=== PATIENT | male | born 1970 | race Caucasian/White ===

== ENCOUNTER 2016-12-10 23:24 | Emergency (ER) | payer OTHER ==
[~2016-12-10] VITALS: Ht 172.7 cm; Wt 153.2 kg
[~2016-12-10 23:24] MED LIST: GLC/500 PO
[2016-12-10 23:34] VITALS: TEMP 36.8; Ht 172.7 cm; Wt 153.2 kg
[2016-12-11 00:52] LABS: BASO % 0.4 %; BASO ABS # 0.05 K/uL (0-0.2); COMPLETE YES; EOS % 1.8 %; HEMATOCRIT 44.2 % (42-52); IG% 1.3 %; LYMPH % 20.6 %; LYMPH ABS # 2.43 K/uL (1.2-3.4); MEAN CELL VOLUME 94.6 fL (80-100); MEAN CORPUSCULAR HEMOGLOBIN 32.5 pg (25-34); MEAN CORPUSCULAR HGB CONC 34.4 g/dl (32-36); MEAN PLATELET VOLUME 11.5 fL (7.4-10.4); MONO % 7.1 %; NEUT % 68.8 %; PLATELET COUNT 231 K/uL (130-400); RED BLOOD COUNT 4.67 M/uL (4.7-6.1); WHITE BLOOD COUNT 11.81 K/uL (4.8-10.8)
[2016-12-11 01:17] LABS: BUN/CREATININE RATIO 15.5 (10-20); CALCIUM 9.3 mg/dl (8.5-10.1); CREATININE 0.99 mg/dl (0.60-1.40); MAGNESIUM 1.9 mg/dl (1.8-2.4)
--- NOTE | 2016-12-11 02:32 | EMERGENCY ROOM VISIT NOTE ---
History First contact with patient: 23:39 Chief Complaint: ARM PAIN Stated Complaint: PULL IN LEFT FOREARM,CLINCHING HAND History of Present Illness The patient is a 46 year old male who presents to the Emergency Room with complaints of left forearm hand pain and cramping for the past week that has been intermittent after raking leaves. Patient is left-hand dominant. Patient states his hand cramped up and had to manually extend his fingers. This is worse with activity. He is currently asymptomatic. Patient states he did overuse his arm last week raking leaves when symptoms started. Patient denies chest pain, dyspnea, numbness, tingling, elbow pain, swelling, fever, chills. No direct injury to the area. He does not drink alcohol. Review of Systems See HPI for pertinent positives & negatives. A total of 10 systems reviewed and were otherwise negative. Past Medical/Surgical History Medical Problems: (1) Cellulitis of left lower leg (2) Diabetes (3) Diverticulitis (4) Sleep apnea Surgical Problems: (1) S/P tonsillectomy Family History Diabetes mellitus FHx: cancer FHx: heart disease Hypertension Kidney disease Kidney stones Social History Smoking Status: Never Smoker Alcohol Use: none Drug Use: none Marital Status: Housing Status: lives with family Occupation Status: employed Current/Historical Medications Scheduled Metformin Hcl (Glucophage), 500 MG PO BID Allergies Coded Allergies: Tramadol (Verified Allergy, Unknown, urinary retention, 12/10/16) pt Physical Exam Vital Signs Date Time Temp Pulse Resp B/P Pulse Ox O2 Delivery O2 Flow Rate FiO2 12/11/16 01:22 101 18 117/99 97 Room Air 12/10/16 23:34 36.8 113 20 158/99 97 Room Air Physical Exam VITALS: Vitals are noted on the nurse's note and reviewed by myself. Vital signs stable. GENERAL: Pleasant male, in no acute distress, nondiaphoretic, well-developed well-nourished. SKIN: Capillary reflex less than 2 seconds. HEENT: Normocephalic. PERRLA. EOMI. Nares patent. Mucous membranes moist. Neck is supple without nuchal rigidity. HEART: Regular rate and rhythm without murmurs gallops or rubs. LUNGS: Clear to auscultation bilaterally without wheezes, rales or rhonchi. No retractions or accessory muscle use. ABDOMEN: Positive bowel sounds x 4. Normal tympanic percussion. Soft, nontender, without masses or organomegaly. Nogueira sign negative. No guarding or rebound tenderness. MUSCULOSKELETAL: No gross musculoskeletal defects. Left arm: Left elbow, forearm, wrist and hand and fingers nontender to palpation full range of motion. No erythema, edema noted. Radial pulses +2 equal present bilaterally. Full range of motion with 5 out of 5 strength to left arm. NEURO: Patient was alert and oriented to person place and time. Normal sensation to light and sharp touch. No focal neurological deficits. Medical Decision & Procedures Laboratory Results 12/11/16 00:39 Red Blood Count 4.67, Mean Corpuscular Volume 94.6, Mean Corpuscular Hemoglobin 32.5, Mean Corpuscular Hemoglobin Concent 34.4, Mean Platelet Volume 11.5, Neutrophils (%) (Auto) 68.8, Lymphocytes (%) (Auto) 20.6, Monocytes (%) (Auto) 7.1, Eosinophils (%) (Auto) 1.8, Basophils (%) (Auto) 0.4, Neutrophils # (Auto) 8.13, Lymphocytes # (Auto) 2.43, Monocytes # (Auto) 0.84, Eosinophils # (Auto) 0.21, Basophils # (Auto) 0.05 12/11/16 00:39 Test 12/11/16 00:39 White Blood Count 11.81 K/uL (4.8-10.8) Red Blood Count 4.67 M/uL (4.7-6.1) Hemoglobin 15.2 g/dL (14.0-18.0) Hematocrit 44.2 % (42-52) Mean Corpuscular Volume 94.6 fL (80-100) Mean Corpuscular Hemoglobin 32.5 pg (25-34) Mean Corpuscular Hemoglobin Concent 34.4 g/dl (32-36) Platelet Count 231 K/uL (130-400) Mean Platelet Volume 11.5 fL (7.4-10.4) Neutrophils (%) (Auto) 68.8 % Lymphocytes (%) (Auto) 20.6 % Monocytes (%) (Auto) 7.1 % Eosinophils (%) (Auto) 1.8 % Basophils (%) (Auto) 0.4 % Neutrophils # (Auto) 8.13 K/uL (1.4-6.5) Lymphocytes # (Auto) 2.43 K/uL (1.2-3.4) Monocytes # (Auto) 0.84 K/uL (0.11-0.59) Eosinophils # (Auto) 0.21 K/uL (0-0.5) Basophils # (Auto) 0.05 K/uL (0-0.2) RDW Standard Deviation 45.1 fL (36.4-46.3) RDW Coefficient of Variation 13.1 % (11.5-14.5) Immature Granulocyte % (Auto) 1.3 % Immature Granulocyte # (Auto) 0.15 K/uL (0.00-0.02) Anion Gap 8.0 mmol/L (3-11) Est Creatinine Clear Calc Drug Dose 137.8 ml/min Estimated GFR () 106.9 Estimated GFR (Non- 92.2 BUN/Creatinine Ratio 15.5 (10-20) Calcium Level 9.3 mg/dl (8.5-10.1) Magnesium Level 1.9 mg/dl (1.8-2.4) ED Course Prior records reviewed and summarized above. Triage Nursing notes reviewed. The patient's history was concerning for swelling and pain in the arm. Differential diagnosis: Etiologies such as DVT, musculoskeletal, infection, joint effusion, trauma, lymphedema, idiopathic, tendinitis, as well as others were entertained.. Physical examination: The physical examination revealed no signs of infection. Neurovascularly intact. ER treatment provided: Wrist splint On reassessment the patient felt better. Diagnostics interpreted by me: The labs revealed hyperglycemia without DKA Imaging studies: Negative for DVT This appears to be consistent with tendinitis from overuse. Patient was advised to wear the splint for comfort and advise overusing the hand. He is advised follow-up with hand specialist in a few days or here in the ER sooner for severe pain, numbness, tingling, worsening signs or symptoms or as needed. Patient was neurovascularly and neurologically intact. He is well-appearing.. By the evaluation outlined above emergent etiologies such as DVT, septic joint, trauma, infection, CHF, as well as others were deemed relatively unlikely. The pt informed about the findings as listed above. All questions were answered and pleased with the treatment. Return instructions were outlined and the patient was discharged in stable condition. Referral: The patient was referred back to hand specialist for follow-up in 2 to 3 days for a recheck of the current condition. Medical Decision as above Impression Primary Impression: Left forearm pain Additional Impression: Tendonitis Departure Information Dispostion Home / Self-Care Condition GOOD Referrals Marcial Peter M.D. (PCP) Patient Instructions My [facility] [employer] Additional Instructions Ibuprofen(Motrin, Advil) may be used for fever or pain. Use 600mg every six hours as needed. Take with food. Avoid using more than 2400mg in a 24 hour period. Do not use 2400mg per day for more than three consecutive days without physician direction. Prolonged inappropriate use can lead to stomach upset or ulcers. This medication can be taken if you need to drive, work, or perform activities which may be dangerous when taking narcotic pain medication. (AND/OR) Acetaminophen(Tylenol) may be used for fever or pain. Use 1000mg every six hours as needed. Avoid using more than 3000mg in a 24 hour period. This medication can be taken if you need to drive, work, or perform activities which may be dangerous when taking narcotic pain medication. Wear splint for comfort. Avoid overuse of your left arm. Continue current medications. Return to the ER immediately for any numbness, tingling, severe pain, extreme swelling in the extremity or as needed. Call Orthopedics tomorrow to arrange follow up for your injury. Problem Qualifiers
[2016-12-11 02:45] VITALS: BP 123/98; PULSE 101; O2SAT 96
--- NOTE | 2016-12-11 06:41 | DIAGNOSTIC IMAGING REPORT ---
VENOUS DOPPLER LEFT ARM UPPER EXTREMITY VENOUS DOPPLER HISTORY: Pain left arm pain COMPARISON STUDY: None. FINDINGS: The internal jugular vein is patent. There is normal flow within the subclavian vein. There is normal flow and compressibility within the left axillary, basilic, brachial, radial, ulnar, and visualized cephalic veins. IMPRESSION: No DVT within the upper extremity. Electronically signed by: Terrell De Leon M.D. 12/11/2016 6:40 AM Dictated Date/Time: 12/11/2016 6:39 AM
== END 2016-12-11 02:45 | disposition home or self-care (01) ==
LOC: C.EDB 23:25 → C.EDC 12-11 02:45
DX: M79.632 Pain in left forearm (principal); M77.9 Enthesopathy, unspecified; E11.9 Type 2 diabetes mellitus without complications; Z90.89 Acquired absence of other organs; Z83.3 Family history of diabetes mellitus; Z82.49 Family history of ischemic heart disease and other diseases of the circulatory system; Z84.1 Family history of disorders of kidney and ureter; Z79.84 Long term (current) use of oral hypoglycemic drugs

== ENCOUNTER 2017-01-14 19:26 | Emergency (ER) | payer OTHER ==
[~2017-01-14] VITALS: Ht 172.7 cm; Wt 158.3 kg
[2017-01-14 19:32] VITALS: TEMP 36.9; Ht 172.7 cm; Wt 158.3 kg
[2017-01-14] MEDS ORDERED: SODIUM CHLORIDE 0.9% 1000ML 1,000 ML IV STA (19:48)
[2017-01-14 20:17] LABS: BASO % 0.3 %; BASO ABS # 0.03 K/uL (0-0.2); COMPLETE YES; HEMATOCRIT 41.9 % (42-52); IG% 1.7 %; LYMPH % 23.4 %; LYMPH ABS # 2.03 K/uL (1.2-3.4); MEAN CELL VOLUME 94.2 fL (80-100); MEAN CORPUSCULAR HEMOGLOBIN 32.8 pg (25-34); MEAN CORPUSCULAR HGB CONC 34.8 g/dl (32-36); MEAN PLATELET VOLUME 11.8 fL (7.4-10.4); NEUT % 65.6 %; PLATELET COUNT 171 K/uL (130-400); RED BLOOD COUNT 4.45 M/uL (4.7-6.1); WHITE BLOOD COUNT 8.68 K/uL (4.8-10.8)
--- NOTE | 2017-01-14 20:31 | EMERGENCY ROOM VISIT NOTE ---
History Report prepared by Joaquín: Fuentes Fernando Under the Supervision of: Dr. Scott Lozoya M.D. First contact with patient: 19:40 Chief Complaint: HYPERGLYCEMIA Stated Complaint: SUGAR IS 390, BP IS ALSO UP History of Present Illness The patient is a 46 year old male who presents to the Emergency Room with constant hyperglycemia beginning prior to arrival. The patient states that he was at work and was getting ready to run the yard. He reports that he put the gate down after the two guards came in and did not wait for the prisoners to enter the yard. The patient note that he felt confused and overheated, and his co-workers said he was acting weird. 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 The patient reports the he was constantly drinking water , but his month would remain dry. He notes that for lunch he had pizza and water. The patient states that he was sent to the medic for evaluations. He reports that upon evaluation, his blood sugar was 390, and his blood pressure was hypertensive. The patient notes that he has a history of Type II diabetes mellitus, and he has been doing well. He states that he does not regularly check his blood sugar; he only checks it when it feels like he has symptoms. The patient denies numbness, weakness, chest pain, and shortness of breath. Nursing notes states that in the room, the patients blood pressure was 154/99. The patient's records show that his last A1C was in April and was 8.1. Source of History: patient, nursing staff, other (patient's records) Onset: prior to arrival Position: other (global) Quality: other (hyperglycemia) Timing: constant Associated Symptoms: No chest pain, No SOB, No weakness, No numbness Note: Associated symptoms: confusion and overheated Review of Systems See HPI for pertinent positives & negatives. A total of 10 systems reviewed and were otherwise negative. Past Medical & Surgical Medical Problems: (1) Cellulitis of left lower leg (2) Diabetes (3) Diverticulitis (4) Sleep apnea Surgical Problems: (1) S/P tonsillectomy Old medical records were reviewed. Nurse's notes were reviewed and I agree with. Family History Diabetes mellitus FHx: cancer FHx: heart disease Hypertension Kidney disease Kidney stones Social History Smoking Status: Never Smoker Alcohol Use: none Drug Use: none Marital Status: Housing Status: lives with family Occupation Status: employed Current/Historical Medications Scheduled Metformin Hcl (Glucophage), 500 MG PO BID Allergies Coded Allergies: Tramadol (Verified Allergy, Unknown, urinary retention, 01/14/17) pt Physical Exam Vital Signs Date Time Temp Pulse Resp B/P (MAP) Pulse Ox O2 Delivery O2 Flow Rate FiO2 01/14/17 21:48 87 20 139/89 97 01/14/17 20:53 101 20 140/99 96 Room Air 01/14/17 19:32 36.9 110 20 173/105 97 Room Air Physical Exam General: Middle-aged male, non-ill appearing, no acute distress, breathing comfortably on room air. Normal speech HEENT: Normal cephalic atraumatic. Pupils are equal round and reactive to light. Extraocular movements are intact. Oropharynx is pink with moist mucous membranes. No swelling of the mouth lips or tongue. Neck: Supple with a midline trachea. No meningeal signs or stiffness, no JVD or bruits. No Stridor. Chest: Clear to auscultation bilaterally. No wheezes or rhonchi. No increased work of breathing. Heart: regular rate and rhythm. Abdomen: Soft nontender, nondistended without rebound guarding or rigidity. Extremities: No cyanosis clubbing or edema. No calf tenderness or assymetry Spine/Back. Non tender to palpation. No CVA tenderness Skin: Good turgor without rashes. Neurologic exam: Cranial nerves two through 12 are intact. Motor and sensation are intact and symmetrical throughout. Medical Decision & Procedures Laboratory Results 01/14/17 20:00 Red Blood Count 4.45, Mean Corpuscular Volume 94.2, Mean Corpuscular Hemoglobin 32.8, Mean Corpuscular Hemoglobin Concent 34.8, Mean Platelet Volume 11.8, Neutrophils (%) (Auto) 65.6, Lymphocytes (%) (Auto) 23.4, Monocytes (%) (Auto) 7.0, Eosinophils (%) (Auto) 2.0, Basophils (%) (Auto) 0.3, Neutrophils # (Auto) 5.69, Lymphocytes # (Auto) 2.03, Monocytes # (Auto) 0.61, Eosinophils # (Auto) 0.17, Basophils # (Auto) 0.03 01/14/17 20:00 Test 01/14/17 20:00 01/14/17 20:10 White Blood Count 8.68 K/uL (4.8-10.8) Red Blood Count 4.45 M/uL (4.7-6.1) Hemoglobin 14.6 g/dL (14.0-18.0) Hematocrit 41.9 % (42-52) Mean Corpuscular Volume 94.2 fL (80-100) Mean Corpuscular Hemoglobin 32.8 pg (25-34) Mean Corpuscular Hemoglobin Concent 34.8 g/dl (32-36) Platelet Count 171 K/uL (130-400) Mean Platelet Volume 11.8 fL (7.4-10.4) Neutrophils (%) (Auto) 65.6 % Lymphocytes (%) (Auto) 23.4 % Monocytes (%) (Auto) 7.0 % Eosinophils (%) (Auto) 2.0 % Basophils (%) (Auto) 0.3 % Neutrophils # (Auto) 5.69 K/uL (1.4-6.5) Lymphocytes # (Auto) 2.03 K/uL (1.2-3.4) Monocytes # (Auto) 0.61 K/uL (0.11-0.59) Eosinophils # (Auto) 0.17 K/uL (0-0.5) Basophils # (Auto) 0.03 K/uL (0-0.2) RDW Standard Deviation 43.9 fL (36.4-46.3) RDW Coefficient of Variation 12.8 % (11.5-14.5) Immature Granulocyte % (Auto) 1.7 % Immature Granulocyte # (Auto) 0.15 K/uL (0.00-0.02) Anion Gap 8.0 mmol/L (3-11) Est Creatinine Clear Calc Drug Dose 144.9 ml/min Estimated GFR () 111.0 Estimated GFR (Non- 95.7 BUN/Creatinine Ratio 14.0 (10-20) Bedside Glucose 323 mg/dl (70-99) Calcium Level 8.6 mg/dl (8.5-10.1) Total Bilirubin 0.4 mg/dl (0.2-1) Direct Bilirubin < 0.1 mg/dl (0-0.2) Aspartate Amino Transf (AST/SGOT) 15 U/L (15-37) Alanine Aminotransferase (ALT/SGPT) 34 U/L (12-78) Alkaline Phosphatase 47 U/L (45-117) Total Protein 7.4 gm/dl (6.4-8.2) Albumin 3.6 gm/dl (3.4-5.0) Lipase 232 U/L (73-393) Beta-Hydroxybutyric Acid 0.90 mg/dL (0.2-2.81) Bedside Troponin I < 0.030 ng/ml (0-0.045) Laboratory studies as stated above per my review. Medications Administered Medications (Trade) Dose Ordered Sig/Kaelyn Route Start Time Stop Time Status Last Admin Dose Admin Sodium Chloride 1,000 ml @ 999 mls/hr Q1H1M STAT IV 01/14/17 19:48 01/14/17 20:48 DC 01/14/17 20:12 999 MLS/HR ECG Indication: weakness Rate (beats per minute): 102 Rhythm: sinus tachycardia Findings: no acute ischemic change, no ectopy Comparison ECG Date: 10/12/15 Change: no significant change ED Course 1941: Past medical records reviewed. The patient was evaluated in room C03, and a complete history and physical examination were performed. 1947: Ordered Sodium Chloride 1000 ml @ 999 mls/hr IV 2112: I reevaluated the patient, and he was resting. 2125: Upon reevaluation, the patient is resting comfortably. I discussed the results and treatment plan with him. He verbalized agreement of the treatment plan. The patient was discharged home. Medical Decision Differential diagnosis includes: hyperglycemia, diabetic ketoacidosis, cardiac disease, hypertension, electrolyte metabolic abnormality, infection Medication Reconciliation: I attest that I have personally reviewed the patient' s current medication list. Blood pressure Screening: Patient was found to have an elevated blood pressure and was referred to their primary doctor for recheck and further treatment. This patient comes in as described above. He was placed room C3. He is here for treatment and evaluation of hyperglycemia. He said he felt a little off today and his blood sugar was in the 300s. He did have 2 pieces of pizza for lunchonary he is on metformin for type 2 diabetes. His blood pressure was elevated however it's come down he does have a history of high blood pressure and still mildly elevated here and I did suggest that he follow-up with his regular doctor for recheck. His symptoms do not appear to be related to hypertensive emergency/urgency. EKG does not suggest acute cord syndrome or arrhythmia. Multiple blood tests was obtained. He was found to be mildly hyperglycemic. He was hydrated with IV fluids. He has no evidence suggest DKA and is feeling better and would like to go home. I recommended that he check his blood sugar frequently and return if :worsening of symptoms, fever or chills , any new problems or concerns. He should follow up with doctor this week for recheck. If his blood sugar persistently is elevated, he may ultimately need to increase his medications under his doctor's direction. He was happy with plan and discharged to home. Impression Primary Impression: Hyperglycemia Scribe Attestation The scribe's documentation has been prepared under my direction and personally reviewed by me in its entirety. I confirm that the note above accurately reflects all work, treatment, procedures, and medical decision making performed by me. Departure Information Dispostion Home / Self-Care Referrals Marcial Peter M.D. (PCP) Forms HOME CARE DOCUMENTATION FORM, IMPORTANT VISIT INFORMATION, WORK / SCHOOL INSTRUCTIONS Patient Instructions My [facility] Additional Instructions REst Drink plenty of fluids Check your blood sugar frequently. Try to minimize your carbohydrate intake. Follow-up with your doctor this week for blood sugar and blood pressure recheck. You may ultimately need to readjust her medications if it's persistently high. Return to the ER if: Worsening of symptoms, not tolerating fluids, fever or chills, shortness of breath, any new problems or concerns.
[2017-01-14 20:33] LABS: ALT/SGPT 34 U/L (12-78); AST/SGOT 15 U/L (15-37); BLOOD UREA NITROGEN 13 mg/dl (7-18); CALCIUM 8.6 mg/dl (8.5-10.1); CARBON DIOXIDE 28 mmol/L (21-32); CHLORIDE 102 mmol/L (98-107); CREATININE 0.96 mg/dl (0.60-1.40); GLUCOSE 327 mg/dl (70-99); POTASSIUM 3.9 mmol/L (3.5-5.1); SODIUM 138 mmol/L (136-145)
[2017-01-14 20:43] LABS: ALKALINE PHOSPHATASE 47 U/L (45-117)
[2017-01-14 21:48] VITALS: BP 139/89; PULSE 87; O2SAT 97
== END 2017-01-14 21:49 | disposition home or self-care (01) ==
LOC: C.EDB 19:26 → C.EDC 21:49
DX: E11.65 Type 2 diabetes mellitus with hyperglycemia (principal); R03.0 Elevated blood-pressure reading, without diagnosis of hypertension; G47.30 Sleep apnea, unspecified; K57.92 Diverticulitis of intestine, part unspecified, without perforation or abscess without bleeding; Z83.3 Family history of diabetes mellitus; Z80.9 Family history of malignant neoplasm, unspecified; Z82.49 Family history of ischemic heart disease and other diseases of the circulatory system; Z84.1 Family history of disorders of kidney and ureter; Z79.899 Other long term (current) drug therapy

== ENCOUNTER 2017-03-14 11:12 | Emergency (ER) | payer OTHER ==
[~2017-03-14] VITALS: Ht 172.7 cm; Wt 155.5 kg
[2017-03-14 11:17] VITALS: TEMP 36.8
[2017-03-14] MEDS ORDERED: SODIUM CHLORIDE 0.9% 1000ML 1,000 ML IV STA (11:27)
[2017-03-14 11:35] VITALS: Ht 172.7 cm; Wt 155.5 kg
--- NOTE | 2017-03-14 11:54 | EMERGENCY ROOM VISIT NOTE ---
History Report prepared by Joaquín: Sarah Lee Under the Supervision of: Dr. Grover Alvarez M.D. First contact with patient: 11:27 Chief Complaint: HYPERGLYCEMIA Stated Complaint: SUGAR IS HIGH/BLOOD PRESSURE Nursing Triage Summary: Pt c/o high blood sugar and elvated BP since this am. BSG was 431, BP 150/102. Pt states he is "loopy" and could not focus. 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 Hx of Type 2 diabetes. BSG 365 in Triage History of Present Illness The patient is a 47 year old male who presents to the Emergency Room with complaints of sudden hyperglycemia beginning this morning. He reports that he occasionally has episodes of hyperglycemia. The patient reports that he takes 550 mg of Metformin for his diabetes and that he did not miss a dose today. He states that he was unable to focus today and states that the last time he ate was 4 hours ago. The patient denies other symptoms. Source of History: patient Onset: this morning Position: other (global) Quality: other (hyperglycemia) Timing: other (sudden) Note: additional symptom: unable to focus Review of Systems See HPI for pertinent positives & negatives. A total of 10 systems reviewed and were otherwise negative. Past Medical & Surgical Medical Problems: (1) Cellulitis of left lower leg (2) Diabetes (3) Diverticulitis (4) Sleep apnea Surgical Problems: (1) S/P tonsillectomy Family History Diabetes mellitus FHx: cancer FHx: heart disease Hypertension Kidney disease Kidney stones Social History Smoking Status: Never Smoker Alcohol Use: none Drug Use: none Marital Status: Housing Status: lives with family Occupation Status: employed Current/Historical Medications Scheduled Metformin Hcl (Glucophage), 550 MG PO AMPM Sitagliptin (Januvia), 100 MG PO DAILY Allergies Coded Allergies: Tramadol (Verified Allergy, Unknown, urinary retention, 01/14/17) pt Physical Exam Vital Signs Date Time Temp Pulse Resp B/P (MAP) Pulse Ox O2 Delivery O2 Flow Rate FiO2 03/14/17 14:11 82 16 132/72 98 Room Air 03/14/17 12:15 85 16 134/86 98 Room Air 03/14/17 12:04 98 Room Air 03/14/17 12:04 98 Room Air 03/14/17 11:45 101 154/96 98 Room Air 104 153/99 112 134/102 03/14/17 11:17 36.8 110 18 168/89 95 Room Air Physical Exam GENERAL: Patient is a healthy-appearing well-nourished male HEAD: Normocephalic atraumatic EYES: Ocular movements intact pupils equal and react to light OROPHARYNX mucous membranes are moist no exudates present no erythema or edema present NECK: Supple no nuchal rigidity CHEST: Good equal expansion LUNGS: Clear and equal to auscultation CARDIAC: Normal S1 and S2 ABDOMEN: Soft nontender no guarding BACK: No CVA tenderness EXTREMITIES: No pain upon palpation normal muscle strength in all groups no clubbing cyanosis or edema NEURO: Patient is following commands and answering questions appropriately. Alert and oriented x3 Cranial Nerves 2-12 grossly intact Medical Decision & Procedures Laboratory Results 03/14/17 11:51 Red Blood Count 4.48, Mean Corpuscular Volume 94.9, Mean Corpuscular Hemoglobin 32.4, Mean Corpuscular Hemoglobin Concent 34.1, Mean Platelet Volume 12.2, Neutrophils (%) (Auto) 64.8, Lymphocytes (%) (Auto) 23.8, Monocytes (%) (Auto) 7.2, Eosinophils (%) (Auto) 2.5, Basophils (%) (Auto) 0.4, Neutrophils # (Auto) 5.56, Lymphocytes # (Auto) 2.04, Monocytes # (Auto) 0.62, Eosinophils # (Auto) 0.21, Basophils # (Auto) 0.03 03/14/17 11:51 Test 03/14/17 00:00 03/14/17 11:51 03/14/17 12:00 03/14/17 14:24 Urine Color YELLOW Urine Appearance CLEAR (CLEAR) Urine pH 5.0 (4.5-7.5) Urine Specific [place] 1.032 (1.000-1.030) Urine Protein NEG (NEG) Urine Glucose (UA) 3+ (NEG) Urine Ketones NEG (NEG) Urine Occult Blood NEG (NEG) Urine Nitrite NEG (NEG) Urine Bilirubin NEG (NEG) Urine Urobilinogen NEG (NEG) Urine Leukocyte Esterase NEG (NEG) White Blood Count 8.57 K/uL (4.8-10.8) Red Blood Count 4.48 M/uL (4.7-6.1) Hemoglobin 14.5 g/dL (14.0-18.0) Hematocrit 42.5 % (42-52) Mean Corpuscular Volume 94.9 fL (80-100) Mean Corpuscular Hemoglobin 32.4 pg (25-34) Mean Corpuscular Hemoglobin Concent 34.1 g/dl (32-36) Platelet Count 197 K/uL (130-400) Mean Platelet Volume 12.2 fL (7.4-10.4) Neutrophils (%) (Auto) 64.8 % Lymphocytes (%) (Auto) 23.8 % Monocytes (%) (Auto) 7.2 % Eosinophils (%) (Auto) 2.5 % Basophils (%) (Auto) 0.4 % Neutrophils # (Auto) 5.56 K/uL (1.4-6.5) Lymphocytes # (Auto) 2.04 K/uL (1.2-3.4) Monocytes # (Auto) 0.62 K/uL (0.11-0.59) Eosinophils # (Auto) 0.21 K/uL (0-0.5) Basophils # (Auto) 0.03 K/uL (0-0.2) RDW Standard Deviation 43.3 fL (36.4-46.3) RDW Coefficient of Variation 12.6 % (11.5-14.5) Immature Granulocyte % (Auto) 1.3 % Immature Granulocyte # (Auto) 0.11 K/uL (0.00-0.02) Est Creatinine Clear Calc Drug Dose 144.9 ml/min Estimated GFR () 113.0 Estimated GFR (Non- 97.5 BUN/Creatinine Ratio 19.6 (10-20) Estimated Average Glucose 252 mg/dl Hemoglobin A1c 10.4 % (4.5-5.6) Calcium Level 9.1 mg/dl (8.5-10.1) Total Bilirubin 0.3 mg/dl (0.2-1) Direct Bilirubin mg/dl (0-0.2) Aspartate Amino Transf (AST/SGOT) 24 U/L (15-37) Alanine Aminotransferase (ALT/SGPT) 46 U/L (12-78) Alkaline Phosphatase 48 U/L (45-117) Total Creatine Kinase 100 U/L (39-308) Creatine Kinase MB 1.3 ng/ml (0.5-3.6) Creatine Kinase MB Ratio 1.3 (0-3.0) Troponin I < 0.015 ng/ml (0-0.045) Total Protein 7.5 gm/dl (6.4-8.2) Albumin 3.6 gm/dl (3.4-5.0) Beta-Hydroxybutyric Acid 1.19 mg/dL (0.2-2.81) Thyroid Stimulating Hormone (TSH) 2.470 uIu/ml (0.300-4.500) Bedside Hemoglobin 15.0 g/dl (14.0-18.0) Bedside Hematocrit 44 % (42-52) Bedside Sodium 135 mEq/L (135-144) Bedside Potassium 4.4 mEq/L (3.3-5.0) Bedside Chloride 98 mEq/L (101-112) Bedside Total CO2 26 mEq/l (24-31) Anion Gap 17.0 mmol/L (16-25) Bedside Blood Urea Nitrogen 19 mg/dl (7-18) Bedside Creatinine 0.7 mg/dl (0.6-1.3) Bedside Glucose (other) 393 mg/dl (70-99) Bedside Ionized Calcium ([place]) 1.18 mmol/l (1.12-1.32) Bedside Glucose 285 mg/dl (70-99) Labs reviewed by ED physician. Medications Administered Medications (Trade) Dose Ordered Sig/Kaelyn Route Start Time Stop Time Status Last Admin Dose Admin Sodium Chloride 1,000 ml @ 999 mls/hr Q1H1M STAT IV 03/14/17 11:27 03/14/17 12:27 DC 03/14/17 11:50 999 MLS/HR Sitagliptin Phosphate (Januvia Tab) 100 mg DAILY STAT PO 03/14/17 13:44 03/14/17 13:45 DC 03/14/17 14:06 100 MG ECG Indication: weakness, other Rate (beats per minute): 93 Rhythm: normal sinus Findings: no acute ischemic change, no ectopy ED Course 1120: Past medical records reviewed. The patient was evaluated in room C7. A complete history and physical examination was performed. 1127: Ordered Sodium Chloride 1,000 ml @ 999 mls/hr IV. 1344: Ordered Januvia Tab 100 mg PO. 1420:: Upon reexamination the patient is resting. I discussed results and treatment plan with the patient. He verbalizes agreement and understanding. The patient is ready for discharge. Medical Decision Differential diagnosis: Etiologies such as metabolic, infection, hypo/hyperglycemia, electrolyte abnormalities, cardiac sources, intracerebral event, toxicologic, neurologic, as well as others were entertained. This is a 47-year-old male who presents emergency department complaining of elevated blood sugar. This the second time in 1 month that the patient has been here for his elevation in his blood sugar. I suspect it is poorly controlled. I did discuss his hyperglycemia with the pharmacist who recommended that the patient be placed on Januvia in addition to his metformin. The patient was given normal saline bolus and he felt much better in the emergency department. Patient was in agreement with the treatment plan. Medication Reconcilliation Current Medication List: was personally reviewed by me Blood Pressure Screening Patient's blood pressure: Elevated blood pressure Blood pressure disposition: Referred to PCP Impression Primary Impression: Hyperglycemia Additional Impression: Hypertension Scribe Attestation The scribe's documentation has been prepared under my direction and personally reviewed by me in its entirety. I confirm that the note above accurately reflects all work, treatment, procedures, and medical decision making performed by me. Departure Information Dispostion Home / Self-Care Prescriptions Sitagliptin (Januvia) 100 Mg Tab 100 MG PO DAILY for 30 Days, #30 TAB Prov: Grover Alvarez MD 03/14/17 Referrals Marcial Peter M.D. (PCP) Forms HOME CARE DOCUMENTATION FORM, IMPORTANT VISIT INFORMATION, WORK / SCHOOL INSTRUCTIONS Patient Instructions Hyperglycemia, My [facility], Sitagliptin oral tablet Additional Instructions Need follow up with Dr Peter You were found to have an elevated blood pressure today (>120 sytolic or >90 diastolic). Per medicare guidelines, you need to follow up with this blood pressure screening with your Primary Care Physician (PCP). For a new PCP call [phone]. You have been examined and treated today on an emergency basis only. This is not a substitute for, or an effort to provide, complete comprehensive medical care. It is impossible to recognize and treat all injuries or illnesses in a single emergency department visit. It is therefore important that you follow up closely with Dr Peter. Call as soon as possible for an appointment. Thank you for your time and consideration. I look forward to speaking with you again soon. Please don't hesitate to call us if you have any questions. Problem Qualifiers Additional Impression: Hypertension Hypertension type: unspecified Qualified Codes: I10 - Essential (primary) hypertension
[2017-03-14 12:04] VITALS: O2SAT 98
[2017-03-14 12:11] LABS: ISTAT CREATININE 0.7 mg/dl (0.6-1.3); ISTAT IONIZED CALCIUM 1.18 mmol/l (1.12-1.32)
[2017-03-14 12:14] LABS: BASO % 0.4 %; BASO ABS # 0.03 K/uL (0-0.2); COMPLETE YES; EOS % 2.5 %; HEMATOCRIT 42.5 % (42-52); IG% 1.3 %; LYMPH % 23.8 %; LYMPH ABS # 2.04 K/uL (1.2-3.4); MEAN CELL VOLUME 94.9 fL (80-100); MEAN CORPUSCULAR HEMOGLOBIN 32.4 pg (25-34); MEAN CORPUSCULAR HGB CONC 34.1 g/dl (32-36); MEAN PLATELET VOLUME 12.2 fL (7.4-10.4); MONO % 7.2 %; NEUT % 64.8 %; PLATELET COUNT 197 K/uL (130-400); RED BLOOD COUNT 4.48 M/uL (4.7-6.1); WHITE BLOOD COUNT 8.57 K/uL (4.8-10.8)
[2017-03-14 12:16] LABS: URINE APPEARANCE CLEAR (CLEAR); URINE BILIRUBIN NEG (NEG); URINE COLOR YELLOW; URINE NITRITE NEG (NEG); URINE SPECIFIC GRAVITY 1.032 (1.000-1.030); UROBILINOGEN NEG (NEG)
[2017-03-14 12:22] LABS: MANUAL MICROSCOPIC REQUIRED? NO; REVIEW REQ? NO
[2017-03-14 12:39] LABS: BLOOD UREA NITROGEN 18 mg/dl (7-18); CREATININE 0.94 mg/dl (0.60-1.40); GLUCOSE 378 mg/dl (70-99)
[2017-03-14 12:40] LABS: ALT/SGPT 46 U/L (12-78); AST/SGOT 24 U/L (15-37); BUN/CREATININE RATIO 19.6 (10-20); CALCIUM 9.1 mg/dl (8.5-10.1); CARBON DIOXIDE 26 mmol/L (21-32); CHLORIDE 100 mmol/L (98-107); POTASSIUM 4.3 mmol/L (3.5-5.1); SODIUM 133 mmol/L (136-145)
[2017-03-14 12:53] LABS: ALKALINE PHOSPHATASE 48 U/L (45-117); BETA-HYDROXYBUTYRATE 1.19 mg/dL (0.2-2.81); CKMB/CK RATIO 1.3 (0-3.0)
[2017-03-14] MEDS ORDERED: SITAGLIPTIN 100 MG TAB PO STA (13:44)
[2017-03-14] MEDS ORDERED: SITA1TAB27 PO ×2 (13:45→13:51)
[2017-03-14 14:11] VITALS: BP 132/72; PULSE 82; O2SAT 98
[2017-03-14 14:17] LABS: ESTIMATED AVERAGE GLUCOSE 252 mg/dl; HA1C FLAG Normal (Normal)
== END 2017-03-14 14:39 | disposition home or self-care (01) ==
LOC: C.EDB 11:13 → C.EDC 14:39
DX: E11.65 Type 2 diabetes mellitus with hyperglycemia (principal); I10 Essential (primary) hypertension; G47.30 Sleep apnea, unspecified; K57.92 Diverticulitis of intestine, part unspecified, without perforation or abscess without bleeding; Z83.3 Family history of diabetes mellitus; Z80.9 Family history of malignant neoplasm, unspecified; Z82.49 Family history of ischemic heart disease and other diseases of the circulatory system; Z84.1 Family history of disorders of kidney and ureter; Z79.899 Other long term (current) drug therapy

== ENCOUNTER → 2017-04-19 | Outpatient (CLI) | payer OTHER ==
[~2017-04-19] MED LIST changes: +FLUC150T PO; +SITA1TAB27 PO
[2017-04-19 16:39] LABS: ALT/SGPT 35 U/L (12-78); AST/SGOT 18 U/L (15-37); BLOOD UREA NITROGEN 12 mg/dl (7-18); BUN/CREATININE RATIO 13.6 (10-20); CALCIUM 8.9 mg/dl (8.5-10.1); CARBON DIOXIDE 29 mmol/L (21-32); CHLORIDE 102 mmol/L (98-107); CREATININE 0.87 mg/dl (0.60-1.40); GLUCOSE 281 mg/dl (70-99); POTASSIUM 4.5 mmol/L (3.5-5.1); SODIUM 136 mmol/L (136-145)
[2017-04-19 16:42] LABS: ALB/GLOB RATIO 0.9 (0.9-2); ALKALINE PHOSPHATASE 48 U/L (45-117); CHOLESTEROL 158 mg/dl (0-200); CHOLESTEROL/HDL RATIO 6.9; HDL CHOLESTEROL 23 mg/dl; TRIGLYCERIDES 421 mg/dl (0-150)
[2017-04-20 05:48] LABS: ESTIMATED AVERAGE GLUCOSE 258 mg/dl; HA1C FLAG Normal (Normal)
== END | disposition home or self-care (01) ==
LOC: C.LABBFT 11:45
PROVIDERS: ATTEND Physician Assistant Medical
DX: E11.65 Type 2 diabetes mellitus with hyperglycemia (principal)

== ENCOUNTER 2017-04-20 17:16 | Emergency (ER) | payer OTHER ==
[~2017-04-20] VITALS: Ht 172.7 cm; Wt 158.0 kg
[~2017-04-20 17:16] MED LIST changes: -FLUC150T PO
[2017-04-20 17:18] VITALS: TEMP 37.1; Ht 172.7 cm; Wt 158.0 kg
[2017-04-20] MEDS ORDERED: SODIUM CHLORIDE 0.9% 1000ML 1,000 ML IV STA ×2 (17:22→19:04)
--- NOTE | 2017-04-20 17:41 | EMERGENCY ROOM VISIT NOTE ---
History Report prepared by Joaquín: Jazmín Manjarrez Under the Supervision of: Dr. Jesse Mendez D.O. First contact with patient: 17:21 Chief Complaint: HYPERGLYCEMIA Stated Complaint: HIGH SUGAR History of Present Illness The patient is a 47 year old male who presents to the Emergency Room with complaints of persistent hyperglycemia. He states he was at work when he started "spacing out", so he went to the medical clinic at his work and his BSG was over 500. He admits to recent urinary frequency, dry mouth and dizziness. He is a type 2 diabetic and takes daily metformin. The patient also complains of rashes on his right sided back and under his right arm. He notes he has experienced diarrhea recently. 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 A total of 10 systems reviewed and were otherwise negative. Past Medical & Surgical Medical Problems: (1) Cellulitis of left lower leg (2) Diabetes (3) Diverticulitis (4) Sleep apnea Surgical Problems: (1) S/P tonsillectomy Family History Diabetes mellitus FHx: cancer FHx: heart disease Hypertension Kidney disease Kidney stones Social History Smoking Status: Never Smoker Alcohol Use: none Drug Use: none Marital Status: Housing Status: lives with family Occupation Status: employed Current/Historical Medications Scheduled Fluconazole (Diflucan), 150 MG PO Q3Days Metformin Hcl (Glucophage), 500 MG PO AMPM Sitagliptin (Januvia), 100 MG PO DAILY Allergies Coded Allergies: Tramadol (Verified Allergy, Unknown, urinary retention, 04/20/17) pt Physical Exam Vital Signs Date Time Temp Pulse Resp B/P (MAP) Pulse Ox O2 Delivery O2 Flow Rate FiO2 04/20/17 20:40 100 26 150/91 97 Room Air 04/20/17 19:19 103 25 129/92 96 Room Air 04/20/17 19:13 106 04/20/17 17:18 37.1 118 18 153/95 95 Room Air Physical Exam GENERAL: Patient is awake, alert and non-anxious appearing. EYES: The conjunctivae are clear. The pupils are round and reactive. EARS, NOSE, MOUTH AND THROAT: The nose is without any evidence of any deformity. Mucous membranes are dry, tongue is midline NECK: The neck is nontender and supple. RESPIRATORY: Normal respiratory effort is noted there is no evidence of wheezing rhonchi or rales CARDIOVASCULAR: Regular rate and rhythm noted there no murmurs rubs or gallops normal S1 normal S2 GASTROINTESTINAL: The abdomen is soft. Bowel sounds are present in all quadrants. Abdomen is nontender MUSCULOSKELETAL/EXTREMITIES: There is no evidence of gross deformity full range of motion is noted in the hips and shoulders SKIN: Pedal edema bilaterally. Erythema in both axillary regions, consistent with cutaneous candidiasis, there appears to be satellite lesions and spreading on the right upper extremity and right chest wall. NEUROLOGIC: Patient is awake alert and oriented x3 Gait was steady Medical Decision & Procedures ER Provider Diagnostic Interpretation: Radiology results as stated below per my review and radiologist interpretation: CHEST ONE VIEW PORTABLE HISTORY: Generalized abdominal pain. COMPARISON: Chest 10/12/2015. FINDINGS: The lungs are clear. Cardiac silhouette is normal in size. No pleural effusions. No pneumothorax. IMPRESSION: No acute process. Electronically signed by: Jeremiah Espinoza M.D. 04/20/2017 6:37 PM Laboratory Results 04/20/17 17:48 Red Blood Count 4.68, Mean Corpuscular Volume 95.1, Mean Corpuscular Hemoglobin 31.4, Mean Corpuscular Hemoglobin Concent 33.0, Mean Platelet Volume 11.9, Neutrophils (%) (Auto) 67.6, Lymphocytes (%) (Auto) 20.4, Monocytes (%) (Auto) 7.9, Eosinophils (%) (Auto) 1.9, Basophils (%) (Auto) 0.5, Neutrophils # (Auto) 5.29, Lymphocytes # (Auto) 1.60, Monocytes # (Auto) 0.62, Eosinophils # (Auto) 0.15, Basophils # (Auto) 0.04 04/20/17 17:48 Test 04/20/17 17:48 04/20/17 18:30 04/20/17 20:15 White Blood Count 7.83 K/uL (4.8-10.8) Red Blood Count 4.68 M/uL (4.7-6.1) Hemoglobin 14.7 g/dL (14.0-18.0) Hematocrit 44.5 % (42-52) Mean Corpuscular Volume 95.1 fL (80-100) Mean Corpuscular Hemoglobin 31.4 pg (25-34) Mean Corpuscular Hemoglobin Concent 33.0 g/dl (32-36) Platelet Count 182 K/uL (130-400) Mean Platelet Volume 11.9 fL (7.4-10.4) Neutrophils (%) (Auto) 67.6 % Lymphocytes (%) (Auto) 20.4 % Monocytes (%) (Auto) 7.9 % Eosinophils (%) (Auto) 1.9 % Basophils (%) (Auto) 0.5 % Neutrophils # (Auto) 5.29 K/uL (1.4-6.5) Lymphocytes # (Auto) 1.60 K/uL (1.2-3.4) Monocytes # (Auto) 0.62 K/uL (0.11-0.59) Eosinophils # (Auto) 0.15 K/uL (0-0.5) Basophils # (Auto) 0.04 K/uL (0-0.2) RDW Standard Deviation 44.3 fL (36.4-46.3) RDW Coefficient of Variation 12.9 % (11.5-14.5) Immature Granulocyte % (Auto) 1.7 % Immature Granulocyte # (Auto) 0.13 K/uL (0.00-0.02) Prothrombin Time 10.3 SECONDS (9.0-12.0) Prothromb Time International Ratio 1.0 (0.9-1.1) Activated Partial Thromboplast Time 25.9 SECONDS (21.0-31.0) Partial Thromboplastin Ratio 1.0 Venous Blood pH 7.36 (7.36-7.41) Venous Blood Partial Pressure CO2 55 mmHg (38.0-50.0) Venous Blood Partial Pressure O2 29 mmHg Venous Blood HCO3 31 mmol/L Venous Blood Oxygen Saturation < 60.0 % Venous Blood Base Excess 4.0 mEq/L Anion Gap 11.0 mmol/L (3-11) Est Creatinine Clear Calc Drug Dose 125.0 ml/min Estimated GFR () 93.5 Estimated GFR (Non- 80.6 BUN/Creatinine Ratio 11.9 (10-20) Calcium Level 9.2 mg/dl (8.5-10.1) Total Bilirubin 0.3 mg/dl (0.2-1) Direct Bilirubin < 0.1 mg/dl (0-0.2) Aspartate Amino Transf (AST/SGOT) 17 U/L (15-37) Alanine Aminotransferase (ALT/SGPT) 34 U/L (12-78) Alkaline Phosphatase 47 U/L (45-117) Total Creatine Kinase 85 U/L (39-308) Creatine Kinase MB 1.4 ng/ml (0.5-3.6) Creatine Kinase MB Ratio 1.6 (0-3.0) Troponin I < 0.015 ng/ml (0-0.045) Total Protein 7.4 gm/dl (6.4-8.2) Albumin 3.4 gm/dl (3.4-5.0) Lipase 284 U/L (73-393) Beta-Hydroxybutyric Acid 0.87 mg/dL (0.2-2.81) Urine Color YELLOW Urine Appearance CLEAR (CLEAR) Urine pH 5.0 (4.5-7.5) Urine Specific [place] 1.035 (1.000-1.030) Urine Protein NEG (NEG) Urine Glucose (UA) 3+ (NEG) Urine Ketones NEG (NEG) Urine Occult Blood NEG (NEG) Urine Nitrite NEG (NEG) Urine Bilirubin NEG (NEG) Urine Urobilinogen NEG (NEG) Urine Leukocyte Esterase NEG (NEG) Bedside Glucose 334 mg/dl (70-99) Laboratory results per my review. Medications Administered Medications (Trade) Dose Ordered Sig/Kaelyn Route Start Time Stop Time Status Last Admin Dose Admin Sodium Chloride 1,000 ml @ 999 mls/hr Q1H1M STAT IV 04/20/17 17:22 04/20/17 18:22 DC 04/20/17 17:22 999 MLS/HR Fluconazole (Diflucan Tab) 150 mg NOW ONCE PO 04/20/17 17:45 04/20/17 17:46 DC 04/20/17 18:22 150 MG Insulin Human Regular (novoLIN-R U-100 PER UNIT) 4 units NOW STAT IV 04/20/17 19:04 04/20/17 19:05 DC 04/20/17 19:04 4 UNITS Sodium Chloride 1,000 ml @ 999 mls/hr Q1H1M STAT IV 04/20/17 19:04 04/20/17 20:04 DC 04/20/17 19:04 999 MLS/HR ECG Indication: other (hyperglycemia) Rate (beats per minute): 107 Rhythm: sinus tachycardia Findings: no ectopy, other (No acute ST segments) Comparison ECG Date: Increased rate, otherwise no change from EKG on 03/14/2017 ED Course 173: The patient was evaluated in room B7. A complete history and physical examination were performed. 172: NSS 1000 ml @ 999 mls/hr IV. 1744: Diflucan 150 mg PO. 1903: NSS 1000 ml @ 999 mls/hr IV, NovoLIN-R 4 units IV. 1925: I reevaluated the patient. He is feeling well and resting comfortably. 2009: I reevaluated the patient. He is feeling much better. I discussed his results and discharge instructions and he verbalized complete understanding and agreement. Medical Decision Prior records/ancillary studies reviewed and summarized above. Nursing notes reviewed. Differential diagnosis: Etiologies such as metabolic, infection, hypo/hyperglycemia, electrolyte abnormalities, cardiac sources, intracerebral event, toxicologic, neurologic, as well as others were entertained. The patient is a 47-year-old male who presented to the emergency department for an evaluation of hyperglycemia. The patient states that he has been compliant with his medications. He was treated with IV fluids in the emergency department. He was also given IV insulin. He did not appear to be in DKA. He appears to have a rash in both axilla. The right axilla appears to be consistent with cutaneous candidiasis with multiple satellite lesions. This does not appear to be consistent with shingles although it could have a similar appearance. The rash started a few days ago and I do not feel starting the patient on a course of antiviral would be indicated at this time and I certainly would not start him on steroids. He was encouraged to follow-up with his doctor soon as possible and discuss any further medication management. It is possible he may need to be started on insulin. He was also encouraged return to the emergency department immediately if symptoms change worsen or the need arises. Medication Reconcilliation Current Medication List: was personally reviewed by me Blood Pressure Screening Patient's blood pressure: Elevated blood pressure Blood pressure disposition: Elevated BP felt to be situational Impression Primary Impression: Hyperglycemia Additional Impression: Cutaneous candidiasis Scribe Attestation The scribe's documentation has been prepared under my direction and personally reviewed by me in its entirety. I confirm that the note above accurately reflects all work, treatment, procedures, and medical decision making performed by me. Departure Information Dispostion Home / Self-Care Prescriptions Fluconazole (DIFLUCAN) 150 Mg Tab 150 MG PO Q3Days, #2 TAB Prov: Jesse Mendez, DO 04/20/17 Referrals Marcial Peter M.D. (PCP) Patient Instructions ED Candidiasis Cutaneous, Hyperglycemia, My [facility] Additional Instructions Continue all medications as prescribed. Drink plenty clear liquids. Recheck with your family doctor on Saturday or Saturday for reevaluation. Next dose of Diflucan you should take is on Saturday. You may consider using an antifungal cream under your arms in the meantime. Continue to monitor your blood sugar. Return to the emergency department immediately if symptoms change worsen or the need arises. Problem Qualifiers
[2017-04-20] MEDS ORDERED: FLUCONAZOLE 50 MG TAB PO ONE (17:45)
[2017-04-20 18:02] LABS: BASO % 0.5 %; BASO ABS # 0.04 K/uL (0-0.2); COMPLETE YES; EOS % 1.9 %; HEMATOCRIT 44.5 % (42-52); IG% 1.7 %; LYMPH % 20.4 %; MEAN CELL VOLUME 95.1 fL (80-100); MEAN CORPUSCULAR HEMOGLOBIN 31.4 pg (25-34); MEAN PLATELET VOLUME 11.9 fL (7.4-10.4); MONO % 7.9 %; NEUT % 67.6 %; PLATELET COUNT 182 K/uL (130-400); RED BLOOD COUNT 4.68 M/uL (4.7-6.1); WHITE BLOOD COUNT 7.83 K/uL (4.8-10.8)
[2017-04-20 18:12] LABS: PROTHROMBIN TIME (PATIENT) 10.3 SECONDS (9.0-12.0)
--- NOTE | 2017-04-20 18:39 | DIAGNOSTIC IMAGING REPORT ---
CHEST ONE VIEW PORTABLE HISTORY: Generalized abdominal pain. COMPARISON: Chest 10/12/2015. FINDINGS: The lungs are clear. Cardiac silhouette is normal in size. No pleural effusions. No pneumothorax. IMPRESSION: No acute process. Electronically signed by: Jeremiah Espinoza M.D. 04/20/2017 6:37 PM Dictated Date/Time: 04/20/2017 6:36 PM
[2017-04-20 18:44] LABS: VENOUS BLOOD GAS PCO2 55 mmHg (38.0-50.0); VENOUS BLOOD GAS PO2 29 mmHg
[2017-04-20 18:50] LABS: VEN BLD GAS O2 SATURATION < 60.0 %
[2017-04-20 18:50] LABS: URINE APPEARANCE CLEAR (CLEAR); URINE BILIRUBIN NEG (NEG); URINE COLOR YELLOW; URINE NITRITE NEG (NEG); URINE SPECIFIC GRAVITY 1.035 (1.000-1.030); UROBILINOGEN NEG (NEG)
[2017-04-20 18:52] LABS: MANUAL MICROSCOPIC REQUIRED? NO; REVIEW REQ? NO
[2017-04-20 18:57] LABS: ALKALINE PHOSPHATASE 47 U/L (45-117); ALT/SGPT 34 U/L (12-78); AST/SGOT 17 U/L (15-37); BETA-HYDROXYBUTYRATE 0.87 mg/dL (0.2-2.81); BLOOD UREA NITROGEN 13 mg/dl (7-18); BUN/CREATININE RATIO 11.9 (10-20); CALCIUM 9.2 mg/dl (8.5-10.1); CARBON DIOXIDE 27 mmol/L (21-32); CHLORIDE 98 mmol/L (98-107); CKMB/CK RATIO 1.6 (0-3.0); GLUCOSE 481 mg/dl (70-99); POTASSIUM 4.3 mmol/L (3.5-5.1); SODIUM 136 mmol/L (136-145)
[2017-04-20] MEDS ORDERED: NovoLIN-R INSULIN PER UNIT CHARGE IV STA (19:04)
[2017-04-20] MEDS ORDERED: FLUC150T PO (19:59)
[2017-04-20 20:40] VITALS: BP 150/91; PULSE 100; O2SAT 97
== END 2017-04-20 20:51 | disposition home or self-care (01) ==
LOC: C.EDB 17:17
DX: E11.65 Type 2 diabetes mellitus with hyperglycemia (principal); L30.2 Cutaneous autosensitization; K57.92 Diverticulitis of intestine, part unspecified, without perforation or abscess without bleeding; G47.39 Other sleep apnea; Z86.19 Personal history of other infectious and parasitic diseases; Z98.890 Other specified postprocedural states; Z79.84 Long term (current) use of oral hypoglycemic drugs; Z79.899 Other long term (current) drug therapy; Z88.8 Allergy status to other drugs, medicaments and biological substances

== ENCOUNTER 2017-05-17 23:26 | Emergency (ER) | payer OTHER ==
[~2017-05-17] VITALS: Ht 172.7 cm; Wt 154.7 kg
[2017-05-17 23:32] VITALS: TEMP 36.8; Ht 172.7 cm; Wt 154.7 kg
[2017-05-17] MEDS ORDERED: ALBUT/IPRATROP 3MG/0.5MG NEB 3 ML VIAL INH STA (23:46)
[2017-05-17] MEDS ORDERED: SODIUM CHLORIDE 0.9% 1000ML 1,000 ML IV STA (23:46)
[2017-05-17] MEDS ORDERED: METF-384 PO (23:49)
[2017-05-18 00:10] VITALS: O2SAT 97
--- NOTE | 2017-05-18 00:13 | DIAGNOSTIC IMAGING REPORT ---
SINGLE VIEW CHEST CLINICAL HISTORY: Atypical chest pain. FINDINGS: An AP, portable, upright chest radiograph is compared to study dated 04/20/2017. The examination is degraded by portable technique and patient rotation. The cardiomediastinal silhouette is unremarkable. The lungs and pleural spaces are clear. No pneumothorax is seen. The bony thorax is grossly intact. IMPRESSION: No active disease in the chest. Electronically signed by: Beau Russell M.D. 05/18/2017 12:12 AM Dictated Date/Time: 05/18/2017 12:11 AM
[2017-05-18 00:14] LABS: BASO % 0.5 %; BASO ABS # 0.05 K/uL (0-0.2); COMPLETE YES; EOS % 2.5 %; HEMATOCRIT 42.1 % (42-52); IG% 1.3 %; LYMPH % 26.3 %; LYMPH ABS # 2.41 K/uL (1.2-3.4); MEAN CORPUSCULAR HEMOGLOBIN 33.3 pg (25-34); MEAN CORPUSCULAR HGB CONC 35.4 g/dl (32-36); MEAN PLATELET VOLUME 11.4 fL (7.4-10.4); NEUT % 60.4 %; PLATELET COUNT 180 K/uL (130-400); RED BLOOD COUNT 4.48 M/uL (4.7-6.1); WHITE BLOOD COUNT 9.18 K/uL (4.8-10.8)
[2017-05-18 00:33] LABS: BLOOD UREA NITROGEN 14 mg/dl (7-18); BUN/CREATININE RATIO 13.1 (10-20); CALCIUM 8.7 mg/dl (8.5-10.1); CARBON DIOXIDE 28 mmol/L (21-32); CHLORIDE 101 mmol/L (98-107); CREATININE 1.07 mg/dl (0.60-1.40); GLUCOSE 249 mg/dl (70-99); POTASSIUM 3.8 mmol/L (3.5-5.1); SODIUM 138 mmol/L (136-145)
[2017-05-18] MEDS ORDERED: PRVHFAIN INH (01:22)
--- NOTE | 2017-05-18 01:25 | EMERGENCY ROOM VISIT NOTE ---
History Report prepared by Joaquín: Tish Colón Under the Supervision of: Dr. John Branham M.D. First contact with patient: 23:36 Chief Complaint: COUGH Stated Complaint: COUGH,CHILLS History of Present Illness The patient is a 47 year old male who presents to the Emergency Room with complaints of persistent cough starting 1 week ago. His symptoms started with a stuffy nose and productive cough. His cough is now dry and he has been having coughing spells. He coughs so hard that he feels he could vomit. He has also been losing his voice at times. He works at [employer] and notes that everyone there has been having similar symptoms recently. He presents to the ED today because he feels that he cannot keep working with his coughing spells. He reports fever and chills. He has had diarrhea for a week. He denies any chest pain, nausea, vomiting, dysuria, back pain, or abdominal pain. 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 He has received his flu shot. He has a history of diabetes and is on metformin. His sugars have been in the 200s recently. Source of History: patient Onset: 1 week ago Position: other (global) Quality: other (cough) Timing: other (persistent) Associated Symptoms: + fevers, + chills, + diarrhea, No chest pain, No nausea, No vomiting, No abdominal pain, No back pain, No urinary symptoms Review of Systems See HPI for pertinent positives and negatives. A total of ten systems were reviewed and were otherwise negative. Past Medical & Surgical Medical Problems: (1) Cellulitis of left lower leg (2) Diabetes (3) Diverticulitis (4) Sleep apnea Surgical Problems: (1) S/P tonsillectomy Family History Diabetes mellitus FHx: cancer FHx: heart disease Hypertension Kidney disease Kidney stones Social History Smoking Status: Never Smoker Alcohol Use: none Drug Use: none Marital Status: Housing Status: lives with family Occupation Status: employed Current/Historical Medications Scheduled Metformin Hcl (Glucophage), 1,000 MG PO BID Scheduled PRN Albuterol (Ventolin Hfa), 2 PUFFS INH QID PRN for Cough Allergies Coded Allergies: Tramadol (Verified Allergy, Unknown, urinary retention, 05/17/17) pt Physical Exam Vital Signs Date Time Temp Pulse Resp B/P (MAP) Pulse Ox O2 Delivery O2 Flow Rate FiO2 05/18/17 01:36 104 22 162/74 97 05/18/17 00:12 109 05/18/17 00:10 97 Room Air 05/17/17 23:32 36.8 117 20 159/98 97 Room Air Physical Exam GENERAL: Awake, alert, well-appearing, in no distress HENT: Normocephalic, atraumatic. Dry mucous membranes. EYES: Normal conjunctiva. Sclera non-icteric. NECK: Supple. No nuchal rigidity. FROM. No JVD. RESPIRATORY: Scant scattered rhonchi, but otherwise clear throughout. CARDIAC: ST. Extremities warm and well perfused. Pulses equal. ABDOMEN: Soft, non-distended. No tenderness to palpation. No rebound or guarding. No masses. RECTAL: Deferred. MUSCULOSKELETAL: Chest examination reveals no tenderness. The back is symmetrical on inspection without obvious abnormality. There is no CVA tenderness to palpation. No joint edema. LOWER EXTREMITIES: Calves are equal size bilaterally and non-tender. No edema. No discoloration. NEURO: Normal sensorium. No sensory or motor deficits noted. SKIN: No rash or jaundice noted. Medical Decision & Procedures ER Provider Diagnostic Interpretation: Radiology results as stated below per my review and radiologist interpretation: SINGLE VIEW CHEST CLINICAL HISTORY: Atypical chest pain. FINDINGS: An AP, portable, upright chest radiograph is compared to study dated 04/20/2017. The examination is degraded by portable technique and patient rotation. The cardiomediastinal silhouette is unremarkable. The lungs and pleural spaces are clear. No pneumothorax is seen. The bony thorax is grossly intact. IMPRESSION: No active disease in the chest. Electronically signed by: Beau Russell M.D. 05/18/2017 12:12 AM Dictated Date/Time: 05/18/2017 12:11 AM Laboratory Results 05/18/17 00:00 Red Blood Count 4.48, Mean Corpuscular Volume 94.0, Mean Corpuscular Hemoglobin 33.3, Mean Corpuscular Hemoglobin Concent 35.4, Mean Platelet Volume 11.4, Neutrophils (%) (Auto) 60.4, Lymphocytes (%) (Auto) 26.3, Monocytes (%) (Auto) 9.0, Eosinophils (%) (Auto) 2.5, Basophils (%) (Auto) 0.5, Neutrophils # (Auto) 5.54, Lymphocytes # (Auto) 2.41, Monocytes # (Auto) 0.83, Eosinophils # (Auto) 0.23, Basophils # (Auto) 0.05 05/18/17 00:00 Test 05/18/17 00:00 05/18/17 00:37 White Blood Count 9.18 K/uL (4.8-10.8) Red Blood Count 4.48 M/uL (4.7-6.1) Hemoglobin 14.9 g/dL (14.0-18.0) Hematocrit 42.1 % (42-52) Mean Corpuscular Volume 94.0 fL (80-100) Mean Corpuscular Hemoglobin 33.3 pg (25-34) Mean Corpuscular Hemoglobin Concent 35.4 g/dl (32-36) Platelet Count 180 K/uL (130-400) Mean Platelet Volume 11.4 fL (7.4-10.4) Neutrophils (%) (Auto) 60.4 % Lymphocytes (%) (Auto) 26.3 % Monocytes (%) (Auto) 9.0 % Eosinophils (%) (Auto) 2.5 % Basophils (%) (Auto) 0.5 % Neutrophils # (Auto) 5.54 K/uL (1.4-6.5) Lymphocytes # (Auto) 2.41 K/uL (1.2-3.4) Monocytes # (Auto) 0.83 K/uL (0.11-0.59) Eosinophils # (Auto) 0.23 K/uL (0-0.5) Basophils # (Auto) 0.05 K/uL (0-0.2) RDW Standard Deviation 44.4 fL (36.4-46.3) RDW Coefficient of Variation 12.9 % (11.5-14.5) Immature Granulocyte % (Auto) 1.3 % Immature Granulocyte # (Auto) 0.12 K/uL (0.00-0.02) Anion Gap 9.0 mmol/L (3-11) Est Creatinine Clear Calc Drug Dose 126.9 ml/min Estimated GFR () 96.7 Estimated GFR (Non- 83.4 BUN/Creatinine Ratio 13.1 (10-20) Calcium Level 8.7 mg/dl (8.5-10.1) Troponin I < 0.015 ng/ml (0-0.045) Influenza Type A (RT-PCR) Neg for Influ A (NEG) Influenza Type A Antigen Neg for Influ A (NEG) Influenza Type B Antigen Neg for Influ B (NEG) Influenza Type B (RT-PCR) Neg for Influ B (NEG) Bedside Glucose 277 mg/dl (70-99) Laboratory results reviewed by me Medications Administered Medications (Trade) Dose Ordered Sig/Kaelyn Route Start Time Stop Time Status Last Admin Dose Admin Sodium Chloride 1,000 ml @ 999 mls/hr Q1H1M STAT IV 05/17/17 23:46 05/18/17 00:46 DC 05/18/17 00:13 999 MLS/HR Albuterol/ Ipratropium (Duoneb) 3 ml NOW STAT INH 05/17/17 23:46 05/17/17 23:51 DC 05/18/17 00:12 3 ML ECG Indication: tachycardia Rate (beats per minute): 109 Rhythm: sinus tachycardia Findings: no acute ischemic change, other (normal axis) ED Course 2345: The patient was evaluated in room C8. A complete history and physical exam was performed. 2346: Duoneb 3 ml INH, NSS 1000 ml @ 999 mls/hr IV. 0105: I reevaluated the patient. I discussed results and discharge instructions : He verbalized understanding and agreement. The patient is ready for discharge. Medical Decision I reviewed the patient's past medical history, medications, and the nursing notes as described above. Differential diagnosis: pneumonia, bronchitis, influenza, ACS, dehydration, electrolyte abnormality. The patient is a 47 y/o gentleman with pmhx of NIDDM who presents to the ED with cough, congestion x 1 week per HPI. On arrival the is relatively well- appearing in NAD. HR 100s but otherwise, AFVSS. Scant rhonchi but otherwise clear lungs. CXR negative. EKG unremarkable. Trop negative in the setting of 1 week of constant sx. Lab unremarkable including wbc wnl. Influenza negative. Patient given neb and while felt slightly anxious but did feel mild improvement in cough sx. Sx most c/w viral URI. Findings and plan for pcp follow-up reviewed with patient. Patient agreeable and d/c'd per discharge instructions. Medication Reconcilliation Current Medication List: was personally reviewed by me Blood Pressure Screening Patient's blood pressure: Elevated blood pressure Blood pressure disposition: Elevated BP felt to be situational Impression Primary Impression: Upper respiratory infection Scribe Attestation The scribe's documentation has been prepared under my direction and personally reviewed by me in its entirety. I confirm that the note above accurately reflects all work, treatment, procedures, and medical decision making performed by me. Departure Information Dispostion Home / Self-Care Prescriptions Albuterol (Ventolin Hfa) 60 Puffs/5400 Mcg Aers 2 PUFFS INH QID Y for Cough for 5 Days, #1 INHALER Prov: John Branham M.D. 05/18/17 Referrals No Doctor, Assigned (PCP) Patient Instructions Chest Cold (Bronchitis) - [facility], My [facility] Additional Instructions Please follow up with your primary care physician in the next 1-3 days for re- evaluation. You likely an upper respiratory infection of which the majority are viral. Otherwise, your exam, EKG, chest xray, and lab results did not show signs of an emergent condition at this time. Albuterol for cough as needed. Drink plenty of fluids to ensure hydration. Return to the emergency department for worsening symptoms as described in the accompanying instructions.
[2017-05-18 01:34] LABS: INFLUENZA A PCR Neg for Influ A (NEG); INFLUENZA B PCR Neg for Influ B (NEG)
[2017-05-18 01:36] VITALS: BP 162/74; PULSE 104; O2SAT 97
== END 2017-05-18 01:37 | disposition home or self-care (01) ==
LOC: C.EDB 23:28 → C.EDC 05-18 01:37
DX: J06.9 Acute upper respiratory infection, unspecified (principal); E11.9 Type 2 diabetes mellitus without complications; G47.30 Sleep apnea, unspecified; Z83.3 Family history of diabetes mellitus; Z82.49 Family history of ischemic heart disease and other diseases of the circulatory system

== ENCOUNTER 2017-07-04 19:01 | Emergency (ER) | payer OTHER ==
[~2017-07-04] VITALS: Ht 172.7 cm; Wt 155.9 kg
[~2017-07-04 19:01] MED LIST changes: -GLC/500 PO; +METF-384 PO; -SITA1TAB27 PO
[2017-07-04 19:04] VITALS: Ht 172.7 cm; Wt 155.9 kg
[2017-07-04] MEDS ORDERED: TRAJENTA PO (19:20)
--- NOTE | 2017-07-04 20:50 | EMERGENCY ROOM VISIT NOTE ---
History First contact with patient: 19:08 Chief Complaint: FOOT PAIN Stated Complaint: PAIN IN RIGHT FOOT - W/C History of Present Illness The patient is a 47 year old male who presents to the Emergency Room via private vehicle with complaints of "pain and right foot". The patient states that earlier today he was walking at work to his assigned post and notes pain developing in the right lateral foot. He states it was a popping sensation. He notes the pain radiates around to his ankle. He states this occurred at 1410 while at work today. He reported that at 1500 because it persisted. He states he's been trying to tough it out and walk on it but he notes the pain is persistent. He rates the pain overall is a 3/10. Review of Systems A complete 6-point Review of Systems was discussed with the patient, with pertinent positives and negatives listed in the History of Present Illness. All remaining Review of Systems questions can be considered negative unless otherwise specified. Past Medical/Surgical History Medical Problems: (1) Cellulitis of left lower leg (2) Diabetes (3) Diverticulitis (4) Sleep apnea Surgical Problems: (1) S/P tonsillectomy Family History Diabetes mellitus FHx: cancer FHx: heart disease Hypertension Kidney disease Kidney stones Social History Smoking Status: Never Smoker Alcohol Use: none Drug Use: none Marital Status: Housing Status: lives with family Occupation Status: employed Current/Historical Medications Scheduled Metformin Hcl (Glucophage), 1,000 MG PO BID [Trajenta], 5 MG PO DAILY Scheduled PRN Hydrocodone/Acetaminophen 5MG/325MG ([place] 5MG/325MG), 1 TABLET PO Q4H PRN for Pain Physical Exam Vital Signs Date Time Temp Pulse Resp B/P (MAP) Pulse Ox O2 Delivery O2 Flow Rate FiO2 07/04/17 21:08 36.6 98 18 170/120 95 Room Air 07/04/17 19:04 36.6 108 18 170/116 95 Room Air Physical Exam VITAL SIGNS - Vital signs and nursing notes were reviewed. Stable. Hypertensive. GENERAL -47-year-old male appearing his stated age who is in no acute distress. Communicates well with provider and answers questions appropriately. SKIN - Without rashes. No petechial rashes. There is dry skin to the right foot. EXTREMITIES - No clubbing or peripheral cyanosis. No pretibial edema present. Tenderness to palpation overlying the lateral aspect of the foot radiating to the ankle. There is no bony deformity. No neurovascular deficit. +5/5 strength noted in UE/LE bilaterally. Medical Decision & Procedures ER Provider Diagnostic Interpretation: R ANKLE MIN 3 VIEWS ROUTINE CLINICAL HISTORY: Right ankle and foot injury. COMPARISON: Right ankle radiographs March 19, 2013. FINDINGS: Alignment of the right ankle is anatomic. No acute fracture is identified. There is mild posterior and plantar calcaneal spurring. Bony proliferation with cortical irregularity of the posterior distal right tibia is chronic. This suggest old injury. Talar dome is intact. A well-corticated ossicle along the fibular tip is old. IMPRESSION: No acute fracture or dislocation of the right ankle. Electronically signed by: Shady Roger M.D. 07/04/2017 8:47 PM Dictated Date/Time: 07/04/2017 8:45 PM R FOOT MIN 3 VIEWS ROUTINE CLINICAL HISTORY: Right foot injury. COMPARISON: None FINDINGS: Alignment of the right foot is anatomic. Tarsometatarsal joints are intact. There is no acute fracture. Mild posterior and plantar calcaneal spurring is noted. IMPRESSION: No acute fracture or dislocation within the right foot. Electronically signed by: Shady Roger M.D. 07/04/2017 8:48 PM Dictated Date/Time: 07/04/2017 8:47 PM Medical Decision Patient was seen and evaluated as above. He presents to us today with right foot pain. The injury occurred at work. X-rays were obtained of his ankle and his foot. Results as above. I suspect he has a sprain. He'll be referred Workmen's Compensation as well as orthopedics if they deem it necessary. He'll be given a short prescription of [place] for his pain. No red flags identified and the [place] drug monitoring system. His blood pressure is high I suspect secondary to situation but have asked him to follow up with his family doctor to help control. He was educated upon management, educated upon worrisome symptoms in which to return, had questions about discharge, and was discharged home in good condition. In the evaluation and treatment of this patient, the following differential diagnoses were considered: Lisfranc Fracture, Talus Fracture, Tarsal Fracture, Foot Sprain. Impression Primary Impression: Foot pain Departure Information Dispostion Home / Self-Care Condition GOOD Prescriptions Hydrocodone/Acetaminophen 5MG/325MG ([place] 5MG/325MG) Tab 1 TABLET PO Q4H Y for Pain, #15 TAB For Initial Treatment Prov: Brian Strickland PA-C 07/04/17 Referrals Marcial Peter M.D. (PCP) Satish Heredia M.D. Patient Instructions My [facility] Additional Instructions You have been treated in the Emergency Department for a R foot injury.. NORCO for pain. Please do not take tylenol with this and please do not drive with this in your system. For pain control, you can use the following [id number] medicines (if >12 yo): - Regular strength (325mg/tab) Tylenol (acetaminophen) 2 tabs every 4-6 hours as needed. Do not exceed 12 tablets in a 24 hour period. Avoid taking more than 3 grams (3000 mg) of Tylenol per day. This includes any other sources of acetaminophen you may take on a regular basis. - Regular strength (200 mg/tab) Advil (ibuprofen) 1-2 tabs every 4-6 hours as needed. Do not exceed a dose of 3200 mg per day. If this is a recent injury (<24 hrs), ice can be applied to the area of pain for the first 3 days to help decrease pain and inflammation. You have been provided the number for an Orthopaedic Surgeon. You should call this number as soon as possible to establish a follow-up visit from today's Emergency Department visit. OR see the approved individual from work Keep the foot brace/splint in place until cleared by Orthopedics/workman comp. Use the crutches you have been provided to keep ALL weight off of the ankle until weight bearing is tolerable. Return to the Emergency Department if your current symptoms worsen despite treatment course outlined above, or if you develop any of the following symptoms : intractable pain despite aforementioned treatment course or new onset of numbness or tingling of the foot.
[2017-07-04] MEDS ORDERED: IBUPROFEN 600 MG TAB PO STA (21:17)
[2017-07-04] MEDS ORDERED: NORCO 5/325MG HOME PACK PO STA (21:17)
[2017-07-04] MEDS ORDERED: HYDR-5688 PO (21:18)
[2017-07-04 21:37] VITALS: BP 170/120; PULSE 98; TEMP 36.6; O2SAT 95
== END 2017-07-04 21:48 | disposition home or self-care (01) ==
LOC: C.EDB 19:01 → C.EDD 21:48
DX: M79.671 Pain in right foot (principal); X58.XXXA Exposure to other specified factors, initial encounter; Y92.89 Other specified places as the place of occurrence of the external cause; Y99.0 Civilian activity done for income or pay; E11.9 Type 2 diabetes mellitus without complications; G47.30 Sleep apnea, unspecified; Z83.3 Family history of diabetes mellitus; Z80.9 Family history of malignant neoplasm, unspecified; Z82.49 Family history of ischemic heart disease and other diseases of the circulatory system; Z84.1 Family history of disorders of kidney and ureter; Z79.84 Long term (current) use of oral hypoglycemic drugs; Z79.899 Other long term (current) drug therapy

== ENCOUNTER 2017-08-29 17:15 | Emergency (ER) | payer OTHER ==
[~2017-08-29] VITALS: Ht 172.7 cm; Wt 153.3 kg
[~2017-08-29 17:15] MED LIST changes: +HYDR-5688 PO; +TRAJENTA PO
[2017-08-29 17:33] VITALS: Ht 172.7 cm; Wt 153.3 kg
[2017-08-29] MEDS ORDERED: LINA1TAB PO (20:14)
[2017-08-29 20:20] LABS: BASO % 0.3 %; BASO ABS # 0.04 K/uL (0-0.2); EOS % 0.8 %; HEMATOCRIT 43.1 % (42-52); HEMOGLOBIN 15.1 g/dL (14.0-18.0); IG# 0.09 K/uL (0.00-0.02); LYMPH % 16.8 %; LYMPH ABS # 2.16 K/uL (1.2-3.4); MEAN CELL VOLUME 94.9 fL (80-100); MEAN CORPUSCULAR HEMOGLOBIN 33.3 pg (25-34); MONO % 6.8 %; MONO ABS # 0.87 K/uL (0.11-0.59); NEUT % 74.6 %; NEUT ABS # 9.59 K/uL (1.4-6.5); PLATELET COUNT 209 K/uL (130-400); RED CELL DISTRIBUTION WIDTH SD 45.1 fL (36.4-46.3); WHITE BLOOD COUNT 12.85 K/uL (4.8-10.8)
[2017-08-29] MEDS: SODIUM CHLORIDE 0.9% 1000ML 1,000 ML IV SCH ×2 (20:35→22:00)
[2017-08-29 20:39] LABS: ALBUMIN 3.8 gm/dl (3.4-5.0); CALCIUM 9.2 mg/dl (8.5-10.1); CREATININE 1.04 mg/dl (0.60-1.40); POTASSIUM 3.8 mmol/L (3.5-5.1)
[2017-08-29 20:40] LABS: TOTAL PROTEIN 7.9 gm/dl (6.4-8.2)
[2017-08-29] MEDS ORDERED: ONDANSETRON INJ 2 MG/ML 2 ML VIAL IV STA (20:48)
[2017-08-29] MEDS ORDERED: ACETAMINOPHEN 325 MG TAB PO STA (20:48)
--- NOTE | 2017-08-29 20:48 | EMERGENCY ROOM VISIT NOTE ---
History First contact with patient: 19:50 Chief Complaint: HYPERGLYCEMIA Stated Complaint: SUGAR UP, HOT/COLD, CHILLS, PULSE HI, COUGH History of Present Illness The patient is a 47 year old male who presents to the Emergency Room with complaints of 2 day h/o congestion with rhinorrhea, cough with sputum, nausea with emesis, fatigue, chills and sweats. PMH sig for T2DM. 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 Told by his job to come to ED. Pt states he did not eat anything today, but has been hydrating with water. Reports sick contacts. UTD on all immunizations inc flu shot. Denies chest pain, dizziness, dysuria, blood in urine or stool, headaches. Review of Systems ROS otherwise unremarkable, see HPI. Past Medical/Surgical History Medical Problems: (1) Cellulitis of left lower leg (2) Diabetes (3) Diverticulitis (4) Sleep apnea Surgical Problems: (1) S/P tonsillectomy Family History Diabetes mellitus FHx: cancer FHx: heart disease Hypertension Kidney disease Kidney stones Social History Smoking Status: Never Smoker Alcohol Use: none Drug Use: none Marital Status: Housing Status: lives with family Occupation Status: employed Current/Historical Medications Scheduled Linagliptin (Tradjenta), 5 MG PO QAM Metformin Hcl (Glucophage), 1,000 MG PO BID Physical Exam Vital Signs Date Time Temp Pulse Resp B/P (MAP) Pulse Ox O2 Delivery O2 Flow Rate FiO2 08/29/17 21:10 37.3 08/29/17 20:35 103 18 163/81 95 Room Air 08/29/17 17:33 38.2 122 18 116/67 92 Room Air Physical Exam as below General Appearance: WD/WN, no apparent distress, + obese Eyes: PERRL, EOMI, sclerae normal ENT: hearing grossly normal, pharynx normal Neck: supple, no adenopathy Respiratory/Chest: lungs clear, normal breath sounds, no respiratory distress Cardiovascular: regular rate, rhythm, no gallop Abdomen / GI: normal bowel sounds, non tender, soft Back: normal inspection, no CVA tenderness Extremities: normal inspection, no pedal edema Neurologic/Psych: alert, normal mood/affect, normal reflexes Medical Decision & Procedures Laboratory Results 08/29/17 19:50 Red Blood Count 4.54, Mean Corpuscular Volume 94.9, Mean Corpuscular Hemoglobin 33.3, Mean Corpuscular Hemoglobin Concent 35.0, Mean Platelet Volume 12.0, Neutrophils (%) (Auto) 74.6, Lymphocytes (%) (Auto) 16.8, Monocytes (%) (Auto) 6.8, Eosinophils (%) (Auto) 0.8, Basophils (%) (Auto) 0.3, Neutrophils # (Auto) 9.59, Lymphocytes # (Auto) 2.16, Monocytes # (Auto) 0.87, Eosinophils # (Auto) 0.10, Basophils # (Auto) 0.04 08/29/17 19:50 Test 08/29/17 00:00 08/29/17 17:36 08/29/17 19:50 Urine Color DK YELLOW Urine Appearance CLEAR (CLEAR) Urine pH 5.5 (4.5-7.5) Urine Specific Ault 1.025 (1.000-1.030) Urine Protein NEG (NEG) Urine Glucose (UA) NEG (NEG) Urine Ketones TRACE (NEG) Urine Occult Blood NEG (NEG) Urine Nitrite NEG (NEG) Urine Bilirubin NEG (NEG) Urine Urobilinogen NEG (NEG) Urine Leukocyte Esterase NEG (NEG) Urine WBC (Auto) 1-5 /hpf (0-5) Urine RBC (Auto) 0-4 /hpf (0-4) Urine Hyaline Casts (Auto) 1-5 /lpf (0-5) Urine Epithelial Cells (Auto) 10-20 /lpf (0-5) Urine Bacteria (Auto) NEG (NEG) Influenza Type A Antigen Neg for Influ A (NEG) Influenza Type B Antigen Neg for Influ B (NEG) Bedside Glucose 179 mg/dl (70-99) White Blood Count 12.85 K/uL (4.8-10.8) Red Blood Count 4.54 M/uL (4.7-6.1) Hemoglobin 15.1 g/dL (14.0-18.0) Hematocrit 43.1 % (42-52) Mean Corpuscular Volume 94.9 fL (80-100) Mean Corpuscular Hemoglobin 33.3 pg (25-34) Mean Corpuscular Hemoglobin Concent 35.0 g/dl (32-36) Platelet Count 209 K/uL (130-400) Mean Platelet Volume 12.0 fL (7.4-10.4) Neutrophils (%) (Auto) 74.6 % Lymphocytes (%) (Auto) 16.8 % Monocytes (%) (Auto) 6.8 % Eosinophils (%) (Auto) 0.8 % Basophils (%) (Auto) 0.3 % Neutrophils # (Auto) 9.59 K/uL (1.4-6.5) Lymphocytes # (Auto) 2.16 K/uL (1.2-3.4) Monocytes # (Auto) 0.87 K/uL (0.11-0.59) Eosinophils # (Auto) 0.10 K/uL (0-0.5) Basophils # (Auto) 0.04 K/uL (0-0.2) RDW Standard Deviation 45.1 fL (36.4-46.3) RDW Coefficient of Variation 13.0 % (11.5-14.5) Immature Granulocyte % (Auto) 0.7 % Immature Granulocyte # (Auto) 0.09 K/uL (0.00-0.02) Anion Gap 8.0 mmol/L (3-11) Est Creatinine Clear Calc Drug Dose 129.8 ml/min Estimated GFR () 100.0 Estimated GFR (Non- 86.3 BUN/Creatinine Ratio 12.2 (10-20) Calcium Level 9.2 mg/dl (8.5-10.1) Total Bilirubin 0.8 mg/dl (0.2-1) Direct Bilirubin 0.2 mg/dl (0-0.2) Aspartate Amino Transf (AST/SGOT) 20 U/L (15-37) Alanine Aminotransferase (ALT/SGPT) 37 U/L (12-78) Alkaline Phosphatase 46 U/L (45-117) Total Protein 7.9 gm/dl (6.4-8.2) Albumin 3.8 gm/dl (3.4-5.0) Lipase 144 U/L (73-393) Medications Administered Medications (Trade) Dose Ordered Sig/Kaelyn Route Start Time Stop Time Status Last Admin Dose Admin Sodium Chloride 1,000 ml @ 999 mls/hr Q1H1M IV 08/29/17 20:30 08/29/17 22:30 08/29/17 22:00 999 MLS/HR Acetaminophen (Tylenol Tab) 650 mg NOW STAT PO 08/29/17 20:48 08/29/17 20:50 DC 08/29/17 21:10 650 MG Ondansetron HCl (Zofran Inj) 4 mg NOW STAT IV 08/29/17 20:48 08/29/17 20:50 DC 08/29/17 21:09 4 MG Procedure CHEST ONE VIEW PORTABLE CLINICAL HISTORY: Cough. COMPARISON STUDY: Chest radiograph May 18, 2017. FINDINGS: Lung volumes are normal. There is no consolidation. No pneumothorax or pleural effusion is noted. Cardiac size is normal. Mediastinal contours are normal. Pulmonary vascularity is normal. The appearance of the chest is unchanged. IMPRESSION: No acute cardiopulmonary findings. Electronically signed by: Shady Roger M.D. 08/29/2017 10:03 PM Dictated Date/Time: 08/29/2017 10:03 PM ED Course 2000 Personally reviewed records, saw and assessed patient. Labs ordered by attending. 2014 Ordered 2L NSS 999 @ ml/hr. 2039 reviewed labs - UA, chem and cbc unremarkable except for WBC 12. 2145 checked in on pt, he's sitting up in bed eating crackers. Feeling improved. Medical Decision The patient is a 47 year old male who presents to the Emergency Room with complaints of 2 day h/o congestion with rhinorrhea, cough with sputum, nausea with emesis, fatigue, chills and sweats. PMH sig for T2DM. 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 Pt states he did not eat anything today, but has been hydrating with water. Reports sick contacts. UTD on all immunizations inc flu shot. Ddx: DKA, HHS, influenza, URI, sinus congestion UA has trace ketones, likely due to decreased PO intake today. WBC moderately elevated 12.8. CBC and BMP unremarkable. CXR wnl as above. Pt improved on fluids , zofran and tylenol. Suspect this is a viral illness, will likely improve with supportive tx. Rec continue diabetic medications as prescribed. Will send script for [place]am [place] for cough suppression. Patient prepped for discharge. Blood Pressure Screening Patient's blood pressure: Elevated blood pressure Blood pressure disposition: Elevated BP felt to be situational Impression Primary Impression: Vomiting and diarrhea Additional Impression: Cough Departure Information Dispostion Home / Self-Care Condition GOOD Prescriptions Benzonatate (Tessalon Perles) 200 Mg Cap 200 MG PO TID for Cough for 7 Days, #21 CAP Prov: Ying Marshall M.D. 08/29/17 Referrals Marcial Peter M.D. (PCP) Patient Instructions My [facility] Additional Instructions Take tessalon perles as directed for your cough. Eat a bland diet until your diarrhea and vomiting subsides, including bananas, rice, toast, applesauce. Continue to take your medications for your diabetes as prescribed. Resident Tracking Resident Involvement: Resident Care Provided Care Provided: Adult ED Problem Qualifiers
[2017-08-29 21:10] VITALS: TEMP 37.3
[2017-08-29 21:17] LABS: INFLUENZA B ANTIGEN Neg for Influ B (NEG)
--- NOTE | 2017-08-29 22:05 | DIAGNOSTIC IMAGING REPORT ---
CHEST ONE VIEW PORTABLE CLINICAL HISTORY: Cough. COMPARISON STUDY: Chest radiograph May 18, 2017. FINDINGS: Lung volumes are normal. There is no consolidation. No pneumothorax or pleural effusion is noted. Cardiac size is normal. Mediastinal contours are normal. Pulmonary vascularity is normal. The appearance of the chest is unchanged. IMPRESSION: No acute cardiopulmonary findings. Electronically signed by: Shady Roger M.D. 08/29/2017 10:03 PM Dictated Date/Time: 08/29/2017 10:03 PM
[2017-08-29] MEDS ORDERED: BENZ1CAP90 PO (22:25)
[2017-08-29 22:40] VITALS: BP 121/80; PULSE 95; O2SAT 94
--- NOTE | 2017-08-30 01:01 | EMERGENCY ROOM VISIT NOTE ---
History Report prepared by Joaquín: Tish Colón Under the Supervision of: Dr. Slava Curtis D.O. First contact with patient: 19:50 Chief Complaint: HYPERGLYCEMIA Stated Complaint: SUGAR UP, HOT/COLD, CHILLS, PULSE HI, COUGH History of Present Illness The patient is a 47 year old male who presents to the Emergency Room with complaints of persistent illness starting yesterday. He vomited 3-4 times yesterday. He also started coughing up phlegm yesterday. He has not vomited since yesterday. He was at work today when he started feeling hot and cold. He went to the [facility] and his blood sugar was 204. He was also found to be tachycardic. He was sent to the ED. He reports rhinorrhea. He has had a decreased appetite today. He has not had anything to eat today. He did drink some water and milk. He denies any sore throat, chest pain, SOB, or dysuria. 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 He has a history of diabetes. He denies any previous abdominal surgeries. Source of History: patient Onset: yesterday Position: other (global) Quality: other (illness) Timing: other (persistent) Associated Symptoms: + chills, + cough, + nausea, + vomiting, No sorethroat , No chest pain, No SOB, No urinary symptoms Review of Systems See HPI for pertinent positives & negatives. A total of 10 systems reviewed and were otherwise negative. Past Medical & Surgical Medical Problems: (1) Cellulitis of left lower leg (2) Diabetes (3) Diverticulitis (4) Sleep apnea Surgical Problems: (1) S/P tonsillectomy Family History Diabetes mellitus FHx: cancer FHx: heart disease Hypertension Kidney disease Kidney stones Social History Smoking Status: Never Smoker Alcohol Use: none Drug Use: none Marital Status: Housing Status: lives with family Occupation Status: employed Current/Historical Medications Scheduled Benzonatate (Tessalon Perles), 200 MG PO TID Linagliptin (Tradjenta), 5 MG PO QAM Metformin Hcl (Glucophage), 1,000 MG PO BID Allergies Coded Allergies: Tramadol (Verified Allergy, Unknown, urinary retention, 08/29/17) pt Physical Exam Vital Signs Date Time Temp Pulse Resp B/P (MAP) Pulse Ox O2 Delivery O2 Flow Rate FiO2 08/29/17 22:40 95 18 121/80 94 08/29/17 21:10 37.3 08/29/17 20:35 103 18 163/81 95 Room Air 08/29/17 17:33 38.2 122 18 116/67 92 Room Air Physical Exam GENERAL: Morbidly obese, sitting up in bed, no acute distress, nontoxic EYE EXAM: normal conjunctiva. OROPHARYNX: no exudate, no erythema, lips, buccal mucosa, and tongue normal and mucous membranes are moist NECK: supple, no nuchal rigidity, no adenopathy, non-tender LUNGS: Clear to auscultation. Normal chest wall mechanics HEART: no murmurs, S1 normal and S2 normal ABDOMEN: abdomen soft, non-tender, normo-active bowel sounds, no masses, no rebound or guarding. BACK: Back is symmetrical on inspection and there is no deformity, no midline tenderness, no CVA tenderness. SKIN: no rashes and no bruising UPPER EXTREMITIES: upper extremities are grossly normal. LOWER EXTREMITIES: No pitting edema. NEURO EXAM: Normal sensorium, cranial nerves II-XII grossly intact, normal speech, no gross weakness of arms, no gross weakness of legs. Medical Decision & Procedures ER Provider Diagnostic Interpretation: Xray results as stated below per my and the radiologist's interpretation: CHEST ONE VIEW PORTABLE CLINICAL HISTORY: Cough. COMPARISON STUDY: Chest radiograph May 18, 2017. FINDINGS: Lung volumes are normal. There is no consolidation. No pneumothorax or pleural effusion is noted. Cardiac size is normal. Mediastinal contours are normal. Pulmonary vascularity is normal. The appearance of the chest is unchanged. IMPRESSION: No acute cardiopulmonary findings. Electronically signed by: Shady Roger M.D. 08/29/2017 10:03 PM Dictated Date/Time: 08/29/2017 10:03 PM Laboratory Results 08/29/17 19:50 Red Blood Count 4.54, Mean Corpuscular Volume 94.9, Mean Corpuscular Hemoglobin 33.3, Mean Corpuscular Hemoglobin Concent 35.0, Mean Platelet Volume 12.0, Neutrophils (%) (Auto) 74.6, Lymphocytes (%) (Auto) 16.8, Monocytes (%) (Auto) 6.8, Eosinophils (%) (Auto) 0.8, Basophils (%) (Auto) 0.3, Neutrophils # (Auto) 9.59, Lymphocytes # (Auto) 2.16, Monocytes # (Auto) 0.87, Eosinophils # (Auto) 0.10, Basophils # (Auto) 0.04 08/29/17 19:50 Test 08/29/17 00:00 08/29/17 17:36 08/29/17 19:50 Urine Color DK YELLOW Urine Appearance CLEAR (CLEAR) Urine pH 5.5 (4.5-7.5) Urine Specific [place] 1.025 (1.000-1.030) Urine Protein NEG (NEG) Urine Glucose (UA) NEG (NEG) Urine Ketones TRACE (NEG) Urine Occult Blood NEG (NEG) Urine Nitrite NEG (NEG) Urine Bilirubin NEG (NEG) Urine Urobilinogen NEG (NEG) Urine Leukocyte Esterase NEG (NEG) Urine WBC (Auto) 1-5 /hpf (0-5) Urine RBC (Auto) 0-4 /hpf (0-4) Urine Hyaline Casts (Auto) 1-5 /lpf (0-5) Urine Epithelial Cells (Auto) 10-20 /lpf (0-5) Urine Bacteria (Auto) NEG (NEG) Influenza Type A Antigen Neg for Influ A (NEG) Influenza Type B Antigen Neg for Influ B (NEG) Bedside Glucose 179 mg/dl (70-99) White Blood Count 12.85 K/uL (4.8-10.8) Red Blood Count 4.54 M/uL (4.7-6.1) Hemoglobin 15.1 g/dL (14.0-18.0) Hematocrit 43.1 % (42-52) Mean Corpuscular Volume 94.9 fL (80-100) Mean Corpuscular Hemoglobin 33.3 pg (25-34) Mean Corpuscular Hemoglobin Concent 35.0 g/dl (32-36) Platelet Count 209 K/uL (130-400) Mean Platelet Volume 12.0 fL (7.4-10.4) Neutrophils (%) (Auto) 74.6 % Lymphocytes (%) (Auto) 16.8 % Monocytes (%) (Auto) 6.8 % Eosinophils (%) (Auto) 0.8 % Basophils (%) (Auto) 0.3 % Neutrophils # (Auto) 9.59 K/uL (1.4-6.5) Lymphocytes # (Auto) 2.16 K/uL (1.2-3.4) Monocytes # (Auto) 0.87 K/uL (0.11-0.59) Eosinophils # (Auto) 0.10 K/uL (0-0.5) Basophils # (Auto) 0.04 K/uL (0-0.2) RDW Standard Deviation 45.1 fL (36.4-46.3) RDW Coefficient of Variation 13.0 % (11.5-14.5) Immature Granulocyte % (Auto) 0.7 % Immature Granulocyte # (Auto) 0.09 K/uL (0.00-0.02) Anion Gap 8.0 mmol/L (3-11) Est Creatinine Clear Calc Drug Dose 129.8 ml/min Estimated GFR () 100.0 Estimated GFR (Non- 86.3 BUN/Creatinine Ratio 12.2 (10-20) Calcium Level 9.2 mg/dl (8.5-10.1) Total Bilirubin 0.8 mg/dl (0.2-1) Direct Bilirubin 0.2 mg/dl (0-0.2) Aspartate Amino Transf (AST/SGOT) 20 U/L (15-37) Alanine Aminotransferase (ALT/SGPT) 37 U/L (12-78) Alkaline Phosphatase 46 U/L (45-117) Total Protein 7.9 gm/dl (6.4-8.2) Albumin 3.8 gm/dl (3.4-5.0) Lipase 144 U/L (73-393) Laboratory results per my review. Medications Administered Medications (Trade) Dose Ordered Sig/Kaelyn Route Start Time Stop Time Status Last Admin Dose Admin Sodium Chloride 1,000 ml @ 999 mls/hr Q1H1M IV 08/29/17 20:30 08/29/17 22:30 DC 08/29/17 22:00 999 MLS/HR Acetaminophen (Tylenol Tab) 650 mg NOW STAT PO 08/29/17 20:48 08/29/17 20:50 DC 08/29/17 21:10 650 MG Ondansetron HCl (Zofran Inj) 4 mg NOW STAT IV 08/29/17 20:48 08/29/17 20:50 DC 08/29/17 21:09 4 MG ED Course ED COURSE: Vital signs were reviewed and showed fever, tachycardia. The patients medical record was reviewed The above diagnostic studies were performed and reviewed. ED treatments and interventions as stated above. 2030: NSS 1000 ml @ 999 mls/hr IV. 2039: The patient was evaluated in room B4B. A complete history and physical examination was performed. 2047: Zofran Inj 4 mg IV, Acetaminophen 650 mg PO. 2218: Upon reevaluation, the patient is resting comfortably. I discussed my findings with the patient and he understands and agrees with the treatment plan. Based on the patients age, coexisting illnesses, exam and lab findings the decision to treat as an outpatient was made. The patient remained stable while under my care. The patient appeared well at the time of discharge. Medical Decision Differential diagnosis: Etiologies such as viral syndrome, otitis, pharyngitis, pneumonia, influenza, meningitis, urinary tract infection, sepsis, bacteremia, as well as others were entertained. Patient is a 47-year-old male who presents to ER as he is a diabetic was having hot and cold flashes. He also admits to a cough. Yesterday he had vomiting and abdominal achiness but this is completely resolved today. Vitals are remarkable for a fever and a mild tachycardia. Cc shows a leukocytosis of 12.8 thousand. BMP all LFTs, bilirubin lipase is unremarkable. UA was negative. No signs of DKA.. Influenza AB. Chest x-ray shows no infiltrate. Patient was updated at bedside and discharged follow-up as an outpatient. Patient was given 2 L normal saline and Tylenol. He did feel significantly better. No obvious source of infection. Discussed with Pt concerning signs and symptoms to watch out for. Pt was instructed to follow up with their PCP and discussed with the patient their option to return to the ED at anytime for persistent or worsening symptoms. The appropriate anticipatory guidance and out-patient management, including indications for return to the emergency department, were explained at length to the patient and understood. Medication Reconcilliation Current Medication List: was personally reviewed by me Blood Pressure Screening Patient's blood pressure: Normal blood pressure Blood pressure disposition: Did not require urgent referral Impression Primary Impression: Viral URI Additional Impression: Hyperglycemia Scribe Attestation The scribe's documentation has been prepared under my direction and personally reviewed by me in its entirety. I confirm that the note above accurately reflects all work, treatment, procedures, and medical decision making performed by me. Departure Information Dispostion Home / Self-Care Prescriptions Benzonatate (Tessalon Perles) 200 Mg Cap 200 MG PO TID for Cough for 7 Days, #21 CAP Prov: Ying Marshall M.D. 08/29/17 Referrals Marcial Peter M.D. (PCP) Forms HOME CARE DOCUMENTATION FORM, IMPORTANT VISIT INFORMATION, WORK / SCHOOL INSTRUCTIONS Patient Instructions My [facility] [place] [employer] Additional Instructions Take tessalon perles as directed for your cough. Eat a bland diet until your diarrhea and vomiting subsides, including bananas, rice, toast, applesauce. Continue to take your medications for your diabetes as prescribed. Problem Qualifiers
== END 2017-08-29 22:42 | disposition home or self-care (01) ==
LOC: C.EDB 17:17
DX: J06.9 Acute upper respiratory infection, unspecified (principal); E11.65 Type 2 diabetes mellitus with hyperglycemia; R11.2 Nausea with vomiting, unspecified; R19.7 Diarrhea, unspecified; G47.30 Sleep apnea, unspecified; E66.01 Morbid (severe) obesity due to excess calories; Z79.84 Long term (current) use of oral hypoglycemic drugs; Z83.3 Family history of diabetes mellitus; Z82.49 Family history of ischemic heart disease and other diseases of the circulatory system; Z84.1 Family history of disorders of kidney and ureter

== ENCOUNTER 2017-08-31 14:20 | Emergency (ER) | payer OTHER ==
[~2017-08-31] VITALS: Ht 172.7 cm; Wt 153.2 kg
[~2017-08-31 14:20] MED LIST changes: +BENZ1CAP90 PO; -HYDR-5688 PO; +LINA1TAB PO; -TRAJENTA PO
[2017-08-31 14:27] VITALS: TEMP 37.2; Ht 172.7 cm; Wt 153.2 kg
[2017-08-31] MEDS ORDERED: ONDANSETRON INJ 2 MG/ML 2 ML VIAL IV STA (14:44)
[2017-08-31] MEDS ORDERED: SODIUM CHLORIDE 0.9% 1000ML 1,000 ML IV STA (14:44)
[2017-08-31] MEDS ORDERED: SODIUM CHLORIDE 0.9% 1000ML 1,000 ML IV ONE (14:44)
--- NOTE | 2017-08-31 14:59 | EMERGENCY ROOM VISIT NOTE ---
History Report prepared by Joaquín: Farhat Elena Under the Supervision of: Dr. Scott Lozoya M.D. First contact with patient: 14:33 Chief Complaint: HYPERGLYCEMIA Stated Complaint: SUGAR HIGH,DIZZY,LIGHT HEADED,BODY ACHES Nursing Triage Summary: pt reports he was seen here dx with uri and back today for coughing so hard and eyes are going to pop out of his head , is diabetic sugar is 236. body aches History of Present Illness The patient is a 47 year old male who presents to the Emergency Room with complaints of constant weakness beginning a few days ago. The patient came into the ED 2 days ago and was told he had an upper respiratory infection. He notes last night he felt very weak and fatigued throughout his body; he still feels very weak, nauseous, and achy. The patient states he cannot eat or drink without vomiting. He reports he is coughing continuously, and it is productive. The patient states he has soft stools, but has not been experiencing diarrhea. He reports having a severe productive cough. 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 He was checked for flu two days ago, which came back negative. The patient is diabetic and checked his sugar levels 20 minutes ago, and they were at 236. He is currently taking 1000mg metformin PO twice a day for his diabetes. The patient has not experienced any recent trauma, and he is not taking antibiotics. Source of History: patient Onset: A few days ago. Position: other (global) Quality: other (weakness) Timing: constant Associated Symptoms: + cough, + nausea, + vomiting, + fatigue, + weakness, No diarrhea Note: Associated Symptoms: Soft Stools, Body Aches. Denies: Trauma. Review of Systems See HPI for pertinent positives & negatives. A total of 10 systems reviewed and were otherwise negative. Past Medical & Surgical Medical Problems: (1) Cellulitis of left lower leg (2) Diabetes (3) Diverticulitis (4) Sleep apnea Surgical Problems: (1) S/P tonsillectomy Old medical records were reviewed. Nurse's notes were reviewed and I agree with. Family History Diabetes mellitus FHx: cancer FHx: heart disease Hypertension Kidney disease Kidney stones Social History Smoking Status: Never Smoker Alcohol Use: none Drug Use: none Marital Status: Housing Status: lives with family Occupation Status: employed Current/Historical Medications Scheduled Benzonatate (Tessalon Perles), 200 MG PO TID Linagliptin (Tradjenta), 5 MG PO QAM Metformin Hcl (Glucophage), 1,000 MG PO BID Scheduled PRN Dextromethorphan Polistirex (Delsym), 1 DOSE PO Q4 PRN for FLU SYMPTOMS Allergies Coded Allergies: Tramadol (Verified Allergy, Unknown, urinary retention, 08/29/17) pt Physical Exam Vital Signs Date Time Temp Pulse Resp B/P (MAP) Pulse Ox O2 Delivery O2 Flow Rate FiO2 08/31/17 16:13 72 16 115/76 98 Room Air 08/31/17 14:27 37.2 108 18 141/84 93 Room Air Physical Exam General: Non-ill appearing middle aged male in no acute distress. HEENT: Normal cephalic atraumatic. Pupils are equal round and reactive to light. Extraocular movements are intact. Oropharynx is pink with moist mucous membranes. No swelling of the mouth lips or tongue. Neck: Supple with a midline trachea. No meningeal signs or stiffness, no JVD or bruits. No Stridor. Chest: Clear to auscultation bilaterally. No wheezes or rhonchi. No increased work of breathing. Heart: regular rate and rhythm. Abdomen: Soft nontender, nondistended without rebound guarding or rigidity. Extremities: No cyanosis clubbing or edema. No calf tenderness or assymetry Spine/Back. Non tender to palpation. No CVA tenderness Skin: Good turgor without rashes. Neurologic exam: Cranial nerves two through 12 are intact. Motor and sensation are intact and symmetrical throughout. Medical Decision & Procedures ER Provider Diagnostic Interpretation: X-ray results as stated below per interpretation by me and the radiologist: CHEST ONE VIEW PORTABLE CLINICAL HISTORY: Chest pain. COMPARISON STUDY: Chest radiograph August 29, 2017. FINDINGS: Lung volumes are normal. No pneumothorax or pleural effusion is noted. There is no evidence for pulmonary edema. Interstitial prominence is unchanged. Cardiomediastinal silhouette is unremarkable. No consolidation is identified. IMPRESSION: No acute cardiopulmonary findings. Electronically signed by: Shady Roger M.D. 08/31/2017 3:15 PM Dictated Date/Time: 08/31/2017 3:14 PM Laboratory Results 08/31/17 14:58 Red Blood Count 4.36, Mean Corpuscular Volume 93.6, Mean Corpuscular Hemoglobin 32.3, Mean Corpuscular Hemoglobin Concent 34.6, Mean Platelet Volume 11.5, Neutrophils (%) (Auto) 69.9, Lymphocytes (%) (Auto) 15.1, Monocytes (%) (Auto) 11.1, Eosinophils (%) (Auto) 2.7, Basophils (%) (Auto) 0.3, Neutrophils # (Auto ) 5.18, Lymphocytes # (Auto) 1.12, Monocytes # (Auto) 0.82, Eosinophils # (Auto ) 0.20, Basophils # (Auto) 0.02 08/31/17 14:58 Test 08/31/17 14:58 White Blood Count 7.41 K/uL (4.8-10.8) Red Blood Count 4.36 M/uL (4.7-6.1) Hemoglobin 14.1 g/dL (14.0-18.0) Hematocrit 40.8 % (42-52) Mean Corpuscular Volume 93.6 fL (80-100) Mean Corpuscular Hemoglobin 32.3 pg (25-34) Mean Corpuscular Hemoglobin Concent 34.6 g/dl (32-36) Platelet Count 158 K/uL (130-400) Mean Platelet Volume 11.5 fL (7.4-10.4) Neutrophils (%) (Auto) 69.9 % Lymphocytes (%) (Auto) 15.1 % Monocytes (%) (Auto) 11.1 % Eosinophils (%) (Auto) 2.7 % Basophils (%) (Auto) 0.3 % Neutrophils # (Auto) 5.18 K/uL (1.4-6.5) Lymphocytes # (Auto) 1.12 K/uL (1.2-3.4) Monocytes # (Auto) 0.82 K/uL (0.11-0.59) Eosinophils # (Auto) 0.20 K/uL (0-0.5) Basophils # (Auto) 0.02 K/uL (0-0.2) RDW Standard Deviation 43.5 fL (36.4-46.3) RDW Coefficient of Variation 12.7 % (11.5-14.5) Immature Granulocyte % (Auto) 0.9 % Immature Granulocyte # (Auto) 0.07 K/uL (0.00-0.02) Anion Gap 5.0 mmol/L (3-11) Est Creatinine Clear Calc Drug Dose 146.7 ml/min Estimated GFR () 116.0 Estimated GFR (Non- 100.1 BUN/Creatinine Ratio 10.9 (10-20) Calcium Level 8.3 mg/dl (8.5-10.1) Total Bilirubin 0.5 mg/dl (0.2-1) Direct Bilirubin 0.1 mg/dl (0-0.2) Aspartate Amino Transf (AST/SGOT) 15 U/L (15-37) Alanine Aminotransferase (ALT/SGPT) 29 U/L (12-78) Alkaline Phosphatase 38 U/L (45-117) Total Protein 7.2 gm/dl (6.4-8.2) Albumin 3.3 gm/dl (3.4-5.0) Lipase 149 U/L (73-393) Laboratory studies as stated above per my review. Medications Administered Medications (Trade) Dose Ordered Sig/Kaelyn Route Start Time Stop Time Status Last Admin Dose Admin Sodium Chloride 1,000 ml @ 999 mls/hr Q1H1M STAT IV 08/31/17 14:44 08/31/17 15:44 DC 08/31/17 15:15 999 MLS/HR Sodium Chloride 1,000 ml @ 150 mls/hr Q6H40M ONCE IV 08/31/17 14:44 08/31/17 21:23 08/31/17 15:16 150 MLS/HR Ondansetron HCl (Zofran Inj) 4 mg NOW STAT IV 08/31/17 14:44 08/31/17 14:45 DC 08/31/17 15:16 4 MG Azithromycin (Zithromax Tab) 500 mg NOW ONCE PO 08/31/17 16:00 08/31/17 16:01 DC 08/31/17 17:24 500 MG ED Course 1354: Past medical records reviewed. The patient was evaluated in room A09B, and a complete history and physical examination were performed. 1444: Ordered Zofran Inj 4 mg IV, Sodium Chloride 1000 ml @ 150 mls/hr IV, Sodium Chloride 1000 ml @ 999 mls/hr IV 1550: Upon reevaluation, the patient is feeling better. I discussed the results and treatment plan with him. He verbalized agreement of the treatment plan. The patient was discharged home. 1600: Ordered Azithromycin 500mg once PO. Medical Decision Differentials include, but are not limited to; bronchitis, diabetic emergency, pneumonia, influenza, or electrolyte or metabolic abnormalities. This patient comes in as described above. He has a cough and URI type symptoms also has some vomiting. Additionally, he is diabetic. he looks well on exam and is in no distress. The symptoms are gone for several days. A recent influenza test was negative. At this point he will be out of the window for Tamiflu. Chest x-ray was obtained was hydrated with IV normal saline 1 L. Given Zofran 4 mg IV. Blood work was obtained. He was reassessed frequently. He is feeling better and looks well he's ran hemolytically stable his not hypoxemic. Chest x-ray was unremarkable. His blood sugars not significantly elevated and the 190s. He has no electrolyte or metabolic abnormalities. I will start him azithromycin for bronchitis/sinusitis. With his continuation symptoms, it may be more of an atypical infection. Given the first dose here as well as a prescription for Z-Sukh. He was told to return if: worsening of symptoms, not tolerating fluids, fever or chills, any new problems or concerns. He should follow-up with his doctor this week for recheck as well Medication Reconcilliation Current Medication List: was personally reviewed by me Blood Pressure Screening Patient's blood pressure: Normal blood pressure Blood pressure disposition: Did not require urgent referral Impression Primary Impression: Bronchitis Additional Impression: Diabetes Scribe Attestation The scribe's documentation has been prepared under my direction and personally reviewed by me in its entirety. I confirm that the note above accurately reflects all work, treatment, procedures, and medical decision making performed by me. Departure Information Dispostion Home / Self-Care Referrals Marcial Peter M.D. (PCP) Forms HOME CARE DOCUMENTATION FORM, IMPORTANT VISIT INFORMATION, WORK / SCHOOL INSTRUCTIONS Patient Instructions My [facility] [employer] Additional Instructions Rest. Drink plenty of fluids. Use azithromycin Z-Sukh as directedantibiotic Continue use your Tessalon Perles and cough medicine if needed Return if: Worsening of symptoms, shortness of breath, any new problems or concerns. Follow-up with your doctor on Saturday for recheck or return over the weekend to the emergency department symptoms worsen Problem Qualifiers
[2017-08-31 15:10] LABS: BASO % 0.3 %; BASO ABS # 0.02 K/uL (0-0.2); EOS % 2.7 %; HEMATOCRIT 40.8 % (42-52); HEMOGLOBIN 14.1 g/dL (14.0-18.0); IG# 0.07 K/uL (0.00-0.02); LYMPH % 15.1 %; LYMPH ABS # 1.12 K/uL (1.2-3.4); MEAN CELL VOLUME 93.6 fL (80-100); MEAN CORPUSCULAR HEMOGLOBIN 32.3 pg (25-34); MEAN CORPUSCULAR HGB CONC 34.6 g/dl (32-36); MEAN PLATELET VOLUME 11.5 fL (7.4-10.4); MONO % 11.1 %; MONO ABS # 0.82 K/uL (0.11-0.59); NEUT % 69.9 %; NEUT ABS # 5.18 K/uL (1.4-6.5); PLATELET COUNT 158 K/uL (130-400); RED CELL DISTRIBUTION WIDTH CV 12.7 % (11.5-14.5); RED CELL DISTRIBUTION WIDTH SD 43.5 fL (36.4-46.3); WHITE BLOOD COUNT 7.41 K/uL (4.8-10.8)
[2017-08-31] MEDS ORDERED: DEXT30LI4 PO (15:16)
--- NOTE | 2017-08-31 15:17 | DIAGNOSTIC IMAGING REPORT ---
CHEST ONE VIEW PORTABLE CLINICAL HISTORY: Chest pain. COMPARISON STUDY: Chest radiograph August 29, 2017. FINDINGS: Lung volumes are normal. No pneumothorax or pleural effusion is noted. There is no evidence for pulmonary edema. Interstitial prominence is unchanged. Cardiomediastinal silhouette is unremarkable. No consolidation is identified. IMPRESSION: No acute cardiopulmonary findings. Electronically signed by: Shady Roger M.D. 08/31/2017 3:15 PM Dictated Date/Time: 08/31/2017 3:14 PM
[2017-08-31 15:29] LABS: ALBUMIN 3.3 gm/dl (3.4-5.0); CALCIUM 8.3 mg/dl (8.5-10.1); CREATININE 0.92 mg/dl (0.60-1.40); POTASSIUM 3.7 mmol/L (3.5-5.1)
[2017-08-31 15:32] LABS: TOTAL PROTEIN 7.2 gm/dl (6.4-8.2)
[2017-08-31] MEDS ORDERED: AZITTAB PO (15:49)
[2017-08-31] MEDS ORDERED: AZITHROMYCIN 250 MG TAB PO ONE (16:00)
[2017-08-31 17:30] VITALS: BP 137/82; PULSE 75; O2SAT 98
== END 2017-08-31 17:46 | disposition home or self-care (01) ==
LOC: C.EDB 14:22 → C.EDC 17:46
DX: J40 Bronchitis, not specified as acute or chronic (principal); E11.9 Type 2 diabetes mellitus without complications; R11.10 Vomiting, unspecified; Z90.89 Acquired absence of other organs; Z83.3 Family history of diabetes mellitus; Z82.49 Family history of ischemic heart disease and other diseases of the circulatory system; Z84.1 Family history of disorders of kidney and ureter; Z79.84 Long term (current) use of oral hypoglycemic drugs

== ENCOUNTER 2017-09-25 10:30 | Emergency (ER) | payer OTHER ==
[~2017-09-25] VITALS: Ht 172.7 cm; Wt 152.3 kg
[~2017-09-25 10:30] MED LIST changes: -BENZ1CAP90 PO; +DEXT30LI4 PO
[2017-09-25 10:33] VITALS: TEMP 36.6; Ht 172.7 cm; Wt 152.3 kg
[2017-09-25] MEDS ORDERED: FLUCONAZOLE 50 MG TAB PO ONE (10:45)
[2017-09-25] MEDS ORDERED: CLOT1CRE80 TOP (10:53)
[2017-09-25] MEDS ORDERED: FLUC150T63 PO (10:53)
--- NOTE | 2017-09-25 11:04 | EMERGENCY ROOM VISIT NOTE ---
History Report prepared by Joaquín: José Luis Vazquez Under the Supervision of: Dr. Beau Garcia M.D. First contact with patient: 10:39 Chief Complaint: RASH Stated Complaint: RASH ALL OVER BODY, SUGAR IS 281, TL LEVEL IS HIGH History of Present Illness The patient is a 47 year old male who presents to the Emergency Room with complaints of a worsening itchy rash beginning two days ago. He localizes the rash to under his abdominal folds, and bilateral armpits. The patient has a history of diabetes for which he is on Metformin. His blood sugar has been between 184 and 281 within the past week (281 today). He has noticed a similar rash few months ago associated with hyperglycemia. Source of History: patient Onset: Two days ago Position: other (bilateral armpits, and under abdominal folds) Quality: other (rash) Timing: worsening Note: Additional symptoms: hyperglycemia. Review of Systems See HPI for pertinent positives & negatives. A total of 10 systems reviewed and were otherwise negative. Past Medical & Surgical Medical Problems: (1) Cellulitis of left lower leg (2) Diabetes (3) Diverticulitis (4) Sleep apnea Surgical Problems: (1) S/P tonsillectomy Family History Diabetes mellitus FHx: cancer FHx: heart disease Hypertension Kidney disease Kidney stones Social History Smoking Status: Never Smoker Alcohol Use: none Drug Use: none Marital Status: Housing Status: lives with family Occupation Status: employed Current/Historical Medications Scheduled Clotrimazole (Topical) (Anti-Fungal), 1 APPLN TOP TID Fluconazole (Diflucan), 150 MG PO QD Linagliptin (Tradjenta), 5 MG PO QAM Metformin Hcl (Glucophage), 1,000 MG PO BID Scheduled PRN Dextromethorphan Polistirex (Delsym), 1 DOSE PO Q4 PRN for FLU SYMPTOMS Allergies Coded Allergies: Tramadol (Verified Allergy, Unknown, urinary retention, 09/25/17) pt Physical Exam Vital Signs Date Time Temp Pulse Resp B/P (MAP) Pulse Ox O2 Delivery O2 Flow Rate FiO2 09/25/17 11:11 90 18 162/93 98 09/25/17 10:33 36.6 93 20 164/112 97 Room Air Physical Exam GENERAL: Patient is in no acute distress. HEENT: No acute trauma, normocephalic atraumatic, mucous membranes moist, no nasal congestion, no scleral icterus. NECK: No stridor, no adenopathy, no meningismus, trachea is midline. LUNGS: Clear to auscultation bilaterally, no wheeze, no rhonchi, breath sounds equal. HEART: Without murmurs gallops or rubs, regular rate and rhythm. ABDOMEN: Soft, nontender, bowel sounds positive, no hernias, no peritonitis. EXTREMITIES: No cyanosis or edema, full range of motion of all the joints without pain or difficulty, no signs for acute trauma. NEUROLOGIC: Oriented x 3, no acute motor or sensory deficits, no focal weakness. SKIN: Erythematous, flaky, patchy rash to the armpits and groin consistent with candidiasis. No cellulitis. No jaundice. Medical Decision & Procedures Laboratory Results Test 09/25/17 10:59 Bedside Glucose 270 mg/dl (70-99) Medications Administered Medications (Trade) Dose Ordered Sig/Kaelyn Route Start Time Stop Time Status Last Admin Dose Admin Fluconazole (Diflucan Tab) 150 mg NOW ONCE PO 09/25/17 10:45 09/25/17 10:46 DC 09/25/17 11:01 150 MG ED Course 1040: The patient was evaluated in room A4B. A complete history and physical exam was performed. 1045: Ordered Diflucan 150 mg PO. 1115: Patient's BSG was 270. 1120: Reevaluated the patient. Discussed results and discharge instructions: he verbalized understanding and agreement. The patient is ready for discharge. Medical Decision The patient is a 47 year old male who presents to the ED with complaints of a rash of the bilateral armpits and abdominal folds. Differential diagnoses considered include hyperglycemia, shingles, cellulitis, candidiasis, and folliculitis. The patient presents with an itchy rash to the armpits and groin, this rash appears candidal. He has had issues like this in the past and has responded well to Diflucan. The patient was given a dose of oral Diflucan and will taking this for a few days. He will also be using topical clotrimazole cream to the rash. His blood sugar is in the upper 200 range, this is not critical but I have suggested he see his family doctor for a discussion on his diet and diabetic medications. The patient should return for any worsening symptoms. Medication Reconcilliation Current Medication List: was personally reviewed by me Blood Pressure Screening Patient's blood pressure: Elevated blood pressure Blood pressure disposition: Referred to PCP Impression Primary Impression: Candidiasis Scribe Attestation The scribe's documentation has been prepared under my direction and personally reviewed by me in its entirety. I confirm that the note above accurately reflects all work, treatment, procedures, and medical decision making performed by me. Departure Information Dispostion Home / Self-Care Prescriptions Clotrimazole (Topical) (ANTI-FUNGAL) 1 % Cre 1 APPLN TOP TID for 14 Days, #1 TUBE 2 Refills Prov: Beau Garcia M.D. 09/25/17 Fluconazole (DIFLUCAN) 150 Mg Tab 150 MG PO QD for 3 Days, #3 TAB Prov: Beau Garcia M.D. 09/25/17 Referrals Marcial Peter M.D. (PCP) Forms HOME CARE DOCUMENTATION FORM, IMPORTANT VISIT INFORMATION, WORK / SCHOOL INSTRUCTIONS Patient Instructions My [facility] Additional Instructions use diflucan tab 1 daily for 3 more days use clotrimazole lotion to the rash 2-3 times per day--use it for 2 weeks after the rash is gone see mio agrawal this week for a check on your blood sugar--your meds may need adjusted
[2017-09-25 11:11] VITALS: BP 162/93; PULSE 90; O2SAT 98
== END 2017-09-25 11:15 | disposition home or self-care (01) ==
LOC: C.EDB 10:31 → C.EDA 11:15
DX: B37.9 Candidiasis, unspecified (principal); E11.65 Type 2 diabetes mellitus with hyperglycemia; Z79.84 Long term (current) use of oral hypoglycemic drugs; Z83.3 Family history of diabetes mellitus; Z82.49 Family history of ischemic heart disease and other diseases of the circulatory system; Z84.1 Family history of disorders of kidney and ureter

== ENCOUNTER 2017-10-09 13:33 | Emergency (ER) | payer OTHER ==
[~2017-10-09] VITALS: Ht 172.7 cm; Wt 153.0 kg
[~2017-10-09 13:33] MED LIST changes: +CLOT1CRE80 TOP
[2017-10-09 13:37] VITALS: TEMP 36.6; Ht 172.7 cm; Wt 153.0 kg
[2017-10-09] MEDS ORDERED: PROCHLORPERAZINE 5 MG/ML 2 ML VIAL IV STA (13:56)
[2017-10-09] MEDS ORDERED: ACETAMINOPHEN 500 MG TAB PO STA (13:56)
[2017-10-09] MEDS ORDERED: KETOROLAC TROMETHAMINE 30 MG/ML VIAL IV STA (13:56)
[2017-10-09] MEDS ORDERED: DiphenhydrAMINE HCL 50 MG/ML VIAL IV STA (13:56)
[2017-10-09] MEDS ORDERED: SODIUM CHLORIDE 0.9% 1000ML 1,000 ML IV STA (13:56)
--- NOTE | 2017-10-09 13:58 | EMERGENCY ROOM VISIT NOTE ---
History Report prepared by Joaquín: Randy Perez Under the Supervision of: Dr. Manpreet Mckeon M.D. First contact with patient: 13:41 Chief Complaint: HYPOGLYCEMIA Stated Complaint: SUGAR IS 400 AND MIGRAIN History of Present Illness The patient is a 47 year old white male with a past medical history of Cellulitis of left lower leg, Diabetes, Diverticulitis, and Sleep apnea, who presents to the Emergency Room with complaints of a severe headache that began 1 hour ago. He states that most of the pain is behind his eyes, and he describes the discomfort as a "pressure." The patient noted that he did started to notice hyperglycemic levels yesterday afternoon. His blood sugar got as high as 397 this morning, per his meter. Upon arrival to the ED his blood sugar was 280. The patient denies any nausea or vomiting. Source of History: patient Onset: 1 hours Position: head, eye Symptom Intensity: severe Quality: pressure Associated Symptoms: No nausea, No vomiting Note: Hyperglycemia Review of Systems See HPI for pertinent positives and negatives. A total of ten systems were reviewed and were otherwise negative. Past Medical & Surgical Medical Problems: (1) Cellulitis of left lower leg (2) Diabetes (3) Diverticulitis (4) Sleep apnea Surgical Problems: (1) S/P tonsillectomy Family History Diabetes mellitus FHx: cancer FHx: heart disease Hypertension Kidney disease Kidney stones Social History Smoking Status: Never Smoker Alcohol Use: none Drug Use: none Marital Status: Housing Status: lives with family Occupation Status: employed Current/Historical Medications Scheduled Linagliptin (Tradjenta), 5 MG PO QAM Metformin Hcl (Glucophage), 1,000 MG PO BID Allergies Coded Allergies: Tramadol (Verified Allergy, Unknown, urinary retention, 10/09/17) pt Physical Exam Vital Signs Date Time Temp Pulse Resp B/P (MAP) Pulse Ox O2 Delivery O2 Flow Rate FiO2 10/09/17 15:25 84 18 157/97 99 Room Air 10/09/17 13:37 36.6 101 18 180/126 98 Room Air Physical Exam GENERAL: Obese, Awake, alert, well-appearing, NAD HENT: Normocephalic, atraumatic. EYES: Normal conjunctiva. Sclera non-icteric. NECK: Supple. No nuchal rigidity. FROM. RESPIRATORY: CTAB, no rhonchi, wheezing, crackles CARDIAC: RRR, no MRG ABDOMEN: Soft, NTND, BS+ MSK: No chest wall TTP, no LE edema NEURO: CN 2-12 intact, 5/5 upper and lower extremity strength, no dysmetria, no drift, good finger to nose, no sensory deficits. SKIN: No rash or jaundice noted. Medical Decision & Procedures Laboratory Results 10/09/17 14:12 Red Blood Count 4.70, Mean Corpuscular Volume 92.8, Mean Corpuscular Hemoglobin 33.0, Mean Corpuscular Hemoglobin Concent 35.6, Mean Platelet Volume 12.1, Neutrophils (%) (Auto) 64.0, Lymphocytes (%) (Auto) 23.9, Monocytes (%) (Auto) 6.2, Eosinophils (%) (Auto) 3.5, Basophils (%) (Auto) 0.5, Neutrophils # (Auto) 5.48, Lymphocytes # (Auto) 2.05, Monocytes # (Auto) 0.53, Eosinophils # (Auto) 0.30, Basophils # (Auto) 0.04 10/09/17 14:12 Test 10/09/17 13:41 10/09/17 14:12 Bedside Glucose 280 mg/dl (70-99) White Blood Count 8.56 K/uL (4.8-10.8) Red Blood Count 4.70 M/uL (4.7-6.1) Hemoglobin 15.5 g/dL (14.0-18.0) Hematocrit 43.6 % (42-52) Mean Corpuscular Volume 92.8 fL (80-100) Mean Corpuscular Hemoglobin 33.0 pg (25-34) Mean Corpuscular Hemoglobin Concent 35.6 g/dl (32-36) Platelet Count 194 K/uL (130-400) Mean Platelet Volume 12.1 fL (7.4-10.4) Neutrophils (%) (Auto) 64.0 % Lymphocytes (%) (Auto) 23.9 % Monocytes (%) (Auto) 6.2 % Eosinophils (%) (Auto) 3.5 % Basophils (%) (Auto) 0.5 % Neutrophils # (Auto) 5.48 K/uL (1.4-6.5) Lymphocytes # (Auto) 2.05 K/uL (1.2-3.4) Monocytes # (Auto) 0.53 K/uL (0.11-0.59) Eosinophils # (Auto) 0.30 K/uL (0-0.5) Basophils # (Auto) 0.04 K/uL (0-0.2) RDW Standard Deviation 43.5 fL (36.4-46.3) RDW Coefficient of Variation 12.8 % (11.5-14.5) Immature Granulocyte % (Auto) 1.9 % Immature Granulocyte # (Auto) 0.16 K/uL (0.00-0.02) Prothrombin Time 10.0 SECONDS (9.0-12.0) Prothromb Time International Ratio 1.0 (0.9-1.1) Activated Partial Thromboplast Time 24.8 SECONDS (21.0-31.0) Partial Thromboplastin Ratio 1.0 Anion Gap 5.0 mmol/L (3-11) Est Creatinine Clear Calc Drug Dose 160.6 ml/min Estimated GFR () 122.6 Estimated GFR (Non- 105.7 BUN/Creatinine Ratio 11.2 (10-20) Calcium Level 8.9 mg/dl (8.5-10.1) Total Bilirubin 0.4 mg/dl (0.2-1) Direct Bilirubin 0.1 mg/dl (0-0.2) Aspartate Amino Transf (AST/SGOT) 15 U/L (15-37) Alanine Aminotransferase (ALT/SGPT) 32 U/L (12-78) Alkaline Phosphatase 45 U/L (45-117) Total Protein 7.3 gm/dl (6.4-8.2) Albumin 3.6 gm/dl (3.4-5.0) Lipase 188 U/L (73-393) Laboratory results reviewed by me Medications Administered Medications (Trade) Dose Ordered Sig/Kaelyn Route Start Time Stop Time Status Last Admin Dose Admin Sodium Chloride 1,000 ml @ 999 mls/hr Q1H1M STAT IV 10/09/17 13:56 10/09/17 14:56 DC 10/09/17 13:56 999 MLS/HR Ketorolac Tromethamine (Toradol Inj) 30 mg NOW STAT IV 10/09/17 13:56 10/09/17 14:00 DC 10/09/17 14:23 30 MG Acetaminophen (Tylenol Tab) 1,000 mg NOW STAT PO 10/09/17 13:56 10/09/17 14:00 DC 10/09/17 14:23 1,000 MG ED Course 1341: The patient was evaluated in room A9B. A complete history and physical exam was performed. 1532: I reevaluated the patient. Discussed results and discharge instructions: He verbalized understanding and agreement. The patient is ready for discharge. Medical Decision The patient is a 47 year old white male with a past medical history of Cellulitis of left lower leg, Diabetes, Diverticulitis, and Sleep apnea, who presents to the Emergency Room with complaints of a severe headache that began 1 hour ago. Differential diagnosis: Etiologies such as migraine headache, meningitis, sinusitis, CO exposure, ICH, SAH, infection, tumor, headache, sinus thrombosis, arterial dissection, as well as others were entertained. Prior records were reviewed. Patient was seen and evaluated at the bedside. 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 The patient states that he noticed that his sugars were elevated yesterday. Patient does take metformin 1000 mg twice daily as well as in adjunct medication to help with his diabetes. Patient does complain of some mild headache but is retro-orbital behind the left eye. Patient denies any visual difficulties. Patient denies any other fevers or chills. Patient does not have any focal numbness tingling or weakness. No recent falls or syncope. Patient did have blood work completed and was given medications for symptomatic treatment. Upon reassessment the patient's headache had improved. The patient was told that his sugar was mildly elevated greater than 200. The patient does not have an anion gap and the patient's bicarb is normal. Less likely DKA. Given the patient's headaches resolved it is retro-orbital left-sided may be consistent with a possible migraine. Do not believe he requires further imaging or treatment at this time. I discussed the patient's medications with the pharmacist. There is really no indication to increase either of his current medications. Patient was told he needs to follow-up with his primary care physician and he may need be need to be started on a third agent. Patient was also told that his sugars may improve with diet and exercise. Patient was deemed suitable for outpatient follow-up and treatment at this time. Patient was given strict follow-up, discharge, and return precautions. All questions were answered. Patient was deemed suitable for outpatient follow-up at this time. Patient agreed with the plan of care and was safely discharged home. Medication Reconcilliation Current Medication List: was personally reviewed by me Blood Pressure Screening Patient's blood pressure: Elevated blood pressure Impression Primary Impression: Hyperglycemia Scribe Attestation The scribe's documentation has been prepared under my direction and personally reviewed by me in its entirety. I confirm that the note above accurately reflects all work, treatment, procedures, and medical decision making performed by me. Departure Information Dispostion Home / Self-Care Referrals Marcial Peter M.D. (PCP) Patient Instructions Headache Pain, Hyperglycemia, My [facility] Additional Instructions Please return to the emergency department if you have worsening or recurrent symptoms not amenable to at-home treatment. Please call for a follow-up appointment with her primary care physician. Please take your medications as prescribed. If you have other concerns and/or complaints please feel free to also call your primary care physician's office or return the ED for further evaluation, management, and treatment. You were found to have an elevated blood pressure today (>120 sytolic or >90 diastolic). Per medicare guidelines, you need to follow up with this blood pressure screening with your Primary Care Physician (PCP). For a new PCP call [phone]. Take your medications as prescribed. Please follow-up with your primary care physician to discuss adding an additional medication for your diabetes control. Please also consider diet and exercise as this will also help her blood sugars. You have been examined and treated today on an emergency basis only. This is not a substitute for, or an effort to provide, complete comprehensive medical care. It is impossible to recognize and treat all injuries or illnesses in a single emergency department visit. It is therefore important that you follow up closely with [facility], your PCP, and/or your specialist(s). Call as soon as possible for an appointment. Thank you for your time and consideration. I look forward to speaking with you again soon. Please don't hesitate to call us if you have any questions.
[2017-10-09 14:28] LABS: BASO % 0.5 %; BASO ABS # 0.04 K/uL (0-0.2); EOS % 3.5 %; HEMATOCRIT 43.6 % (42-52); HEMOGLOBIN 15.5 g/dL (14.0-18.0); IG# 0.16 K/uL (0.00-0.02); LYMPH % 23.9 %; LYMPH ABS # 2.05 K/uL (1.2-3.4); MEAN CELL VOLUME 92.8 fL (80-100); MEAN CORPUSCULAR HGB CONC 35.6 g/dl (32-36); MEAN PLATELET VOLUME 12.1 fL (7.4-10.4); MONO % 6.2 %; MONO ABS # 0.53 K/uL (0.11-0.59); NEUT ABS # 5.48 K/uL (1.4-6.5); PLATELET COUNT 194 K/uL (130-400); RED CELL DISTRIBUTION WIDTH CV 12.8 % (11.5-14.5); RED CELL DISTRIBUTION WIDTH SD 43.5 fL (36.4-46.3); WHITE BLOOD COUNT 8.56 K/uL (4.8-10.8)
[2017-10-09 14:37] LABS: PTT PATIENT 24.8 SECONDS (21.0-31.0)
[2017-10-09 14:49] LABS: ALBUMIN 3.6 gm/dl (3.4-5.0); CALCIUM 8.9 mg/dl (8.5-10.1); CREATININE 0.84 mg/dl (0.60-1.40); POTASSIUM 4.1 mmol/L (3.5-5.1)
[2017-10-09 14:52] LABS: TOTAL PROTEIN 7.3 gm/dl (6.4-8.2)
[2017-10-09 15:25] VITALS: BP 157/97; PULSE 84; O2SAT 99
== END 2017-10-09 16:06 | disposition home or self-care (01) ==
LOC: C.EDB 13:35 → C.EDA 16:06
DX: R73.9 Hyperglycemia, unspecified (principal); E11.9 Type 2 diabetes mellitus without complications; G47.30 Sleep apnea, unspecified; Z83.3 Family history of diabetes mellitus; Z82.49 Family history of ischemic heart disease and other diseases of the circulatory system; Z88.8 Allergy status to other drugs, medicaments and biological substances

== ENCOUNTER 2017-10-18 14:21 | Emergency (ER) | payer OTHER ==
[~2017-10-18] VITALS: Ht 172.7 cm; Wt 154.0 kg
[~2017-10-18 14:21] MED LIST changes: -CLOT1CRE80 TOP; -DEXT30LI4 PO
[2017-10-18 14:23] VITALS: TEMP 37.1; Ht 172.7 cm; Wt 154.0 kg
[2017-10-18] MEDS ORDERED: NovoLIN-R INSULIN PER UNIT CHARGE SC STA (14:35)
[2017-10-18] MEDS ORDERED: LABETALOL HCL IV 5 MG/ML 20ML IV STA (14:35)
[2017-10-18] MEDS ORDERED: SODIUM CHLORIDE 0.9% 1000ML 1,000 ML IV STA (14:35)
--- NOTE | 2017-10-18 14:53 | EMERGENCY ROOM VISIT NOTE ---
History Report prepared by Joaquín: Lu Caputo Under the Supervision of: Dr. Malia Harrell M.D. First contact with patient: 14:31 Chief Complaint: HYPERGLYCEMIA Stated Complaint: HIGH SUGAR History of Present Illness The patient is a 47 year old male who presents to the Emergency Room with complaints of hyperglycemia beginning around 1350 today. He states he checked his BSG before going to work and it was 450. He denies feeling sick but notes his blood sugar also increases whenever his sugar levels increase. He states last night he had a [employer] sub for dinner and Aquafina water. He reports he has increased urination, shakiness, and has been diaphoretic more than usual. The patient denies any chest pain, fevers, coughing, or SOB. He also states that he has noticed his sugar levels increasing over the past couple of days He reports his sugar typically runs between 135-200. 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 A total of 10 systems reviewed and were otherwise negative. Past Medical & Surgical Medical Problems: (1) Cellulitis of left lower leg (2) Diabetes (3) Diverticulitis (4) Sleep apnea Surgical Problems: (1) S/P tonsillectomy Family History Diabetes mellitus FHx: cancer FHx: heart disease Hypertension Kidney disease Kidney stones Social History Smoking Status: Never Smoker Alcohol Use: none Drug Use: none Marital Status: Housing Status: lives with family Occupation Status: employed Current/Historical Medications Scheduled Linagliptin (Tradjenta), 5 MG PO QAM Metformin Hcl (Glucophage), 1,000 MG PO BID Allergies Coded Allergies: Tramadol (Verified Allergy, Unknown, urinary retention, 10/18/17) pt Physical Exam Vital Signs Date Time Temp Pulse Resp B/P (MAP) Pulse Ox O2 Delivery O2 Flow Rate FiO2 10/18/17 18:46 104 20 145/98 99 10/18/17 18:25 104 20 145/98 99 Room Air 10/18/17 18:00 102 18 126/85 97 Room Air 10/18/17 17:00 104 20 124/79 98 Room Air 10/18/17 15:40 103 18 122/77 95 Room Air 10/18/17 15:19 101 10/18/17 15:13 101 20 161/102 98 Room Air 133/85 10/18/17 14:23 37.1 116 18 173/120 97 Room Air Physical Exam Vital signs reviewed. General: Well-appearing obese male, in no significant distress. HEENT: No scleral icterus, PERRLA, neck supple. Atraumatic. Cardiovascular: Tachycardic, no extra sounds. Hypertensive. Pulmonary: Clear to auscultation bilaterally, normal work of breathing. Abdomen: Soft, nontender, nondistended, positive bowel sounds. Musculoskeletal: Nonpitting edema to the bilateral LE with callused/scaling feet. Neurologic: Patient awake alert and oriented x 3. Skin: No obvious cellulitis. Dermatitis of the armpits. Pannicular fold and groin seems to be resolved. Medical Decision & Procedures Laboratory Results 10/18/17 14:55 Red Blood Count 4.56, Mean Corpuscular Volume 93.2, Mean Corpuscular Hemoglobin 32.7, Mean Corpuscular Hemoglobin Concent 35.1, Mean Platelet Volume 11.7, Neutrophils (%) (Auto) 62.9, Lymphocytes (%) (Auto) 24.0, Monocytes (%) (Auto) 8.1, Eosinophils (%) (Auto) 2.6, Basophils (%) (Auto) 0.6, Neutrophils # (Auto) 4.90, Lymphocytes # (Auto) 1.87, Monocytes # (Auto) 0.63, Eosinophils # (Auto) 0.20, Basophils # (Auto) 0.05 10/18/17 14:55 Test 10/18/17 14:55 10/18/17 15:50 10/18/17 17:02 White Blood Count 7.79 K/uL (4.8-10.8) Red Blood Count 4.56 M/uL (4.7-6.1) Hemoglobin 14.9 g/dL (14.0-18.0) Hematocrit 42.5 % (42-52) Mean Corpuscular Volume 93.2 fL (80-100) Mean Corpuscular Hemoglobin 32.7 pg (25-34) Mean Corpuscular Hemoglobin Concent 35.1 g/dl (32-36) Platelet Count 171 K/uL (130-400) Mean Platelet Volume 11.7 fL (7.4-10.4) Neutrophils (%) (Auto) 62.9 % Lymphocytes (%) (Auto) 24.0 % Monocytes (%) (Auto) 8.1 % Eosinophils (%) (Auto) 2.6 % Basophils (%) (Auto) 0.6 % Neutrophils # (Auto) 4.90 K/uL (1.4-6.5) Lymphocytes # (Auto) 1.87 K/uL (1.2-3.4) Monocytes # (Auto) 0.63 K/uL (0.11-0.59) Eosinophils # (Auto) 0.20 K/uL (0-0.5) Basophils # (Auto) 0.05 K/uL (0-0.2) RDW Standard Deviation 43.7 fL (36.4-46.3) RDW Coefficient of Variation 12.8 % (11.5-14.5) Immature Granulocyte % (Auto) 1.8 % Immature Granulocyte # (Auto) 0.14 K/uL (0.00-0.02) Anion Gap 6.0 mmol/L (3-11) Est Creatinine Clear Calc Drug Dose 144.1 ml/min Estimated GFR () 113.0 Estimated GFR (Non- 97.5 BUN/Creatinine Ratio 14.4 (10-20) Calcium Level 8.9 mg/dl (8.5-10.1) Magnesium Level 2.0 mg/dl (1.8-2.4) Total Bilirubin 0.4 mg/dl (0.2-1) Direct Bilirubin 0.1 mg/dl (0-0.2) Aspartate Amino Transf (AST/SGOT) 13 U/L (15-37) Alanine Aminotransferase (ALT/SGPT) 30 U/L (12-78) Alkaline Phosphatase 44 U/L (45-117) Total Protein 7.2 gm/dl (6.4-8.2) Albumin 3.4 gm/dl (3.4-5.0) Beta-Hydroxybutyric Acid 0.86 mg/dL (0.2-2.81) Urine Color YELLOW Urine Appearance CLEAR (CLEAR) Urine pH 5.0 (4.5-7.5) Urine Specific [place] 1.033 (1.000-1.030) Urine Protein NEG (NEG) Urine Glucose (UA) 3+ (NEG) Urine Ketones NEG (NEG) Urine Occult Blood NEG (NEG) Urine Nitrite NEG (NEG) Urine Bilirubin NEG (NEG) Urine Urobilinogen NEG (NEG) Urine Leukocyte Esterase NEG (NEG) Bedside Glucose 259 mg/dl (70-99) Laboratory results per my review. Medications Administered Medications (Trade) Dose Ordered Sig/Kaelyn Route Start Time Stop Time Status Last Admin Dose Admin Sodium Chloride 1,000 ml @ 200 mls/hr Q5H STAT IV 10/18/17 14:35 10/18/17 19:01 DC 10/18/17 14:57 200 MLS/HR Insulin Human Regular (novoLIN-R U-100 PER UNIT) 10 units NOW STAT SC 10/18/17 14:35 10/18/17 14:40 DC 10/18/17 14:55 10 UNITS ECG Per My Interpretation Indication: other (hypertension) Rate (beats per minute): 104 Rhythm: sinus tachycardia Findings: no acute ischemic change, no ectopy, other (normal intervals) ED Course 1432: Past medical records reviewed. The patient was evaluated in room C3. A complete history and physical examination was performed. 1435: Insulin Human Regular 10 units SC Labetalol HCl 10 mg IV Sodium Chloride 1000 ml @ 200 mls/hr 1700: Upon reevaluation, the patient appeared to have improvement of his symptoms. I discussed findings with him. He verbalized agreement of the treatment plan. He was discharged home. We discussed his eating habits and he said he eats at [facility]. We talked about his medication, how he should be taking them, and his diet. He is agreeable to meeting with a multifocal lens assembler and maybe an food checker as he thinks it might help him. Medical Decision Differential diagnosis: Etiologies such as medication noncompliance, dietary indiscretion, infectious etiology, metabolic abnormality, dehydration, electrolyte abnormality, as well as others were entertained.. This patient was evaluated and appeared to be in no significant distress. IV fluids were initiated. Patient was given 10 units of subcutaneous regular insulin. It seems that the patient has been somewhat noncompliant with his medications. We did have a long conversation regarding time of day and frequency to take his medications. We had a discussion regarding carbohydrates and diet. Patient thinks it would be beneficial to follow-up with a dietitian and potentially a diabetes nurse educator. Patient's blood pressure returned to normal without medication administration. Patient was given a dinner tray. He was encouraged to check his blood sugars several times in the next 24 hours. He was strongly advised to follow-up with his PCP as soon as possible to have his blood pressure rechecked and to discuss his diabetes teaching moving forward. He will return to the ER for worsening of symptoms or any medical concerns. Medication Reconcilliation Current Medication List: was personally reviewed by me Blood Pressure Screening Patient's blood pressure: Elevated blood pressure Blood pressure disposition: Elevated BP felt to be situational Impression Primary Impression: Hyperglycemia Scribe Attestation The scribe's documentation has been prepared under my direction and personally reviewed by me in its entirety. I confirm that the note above accurately reflects all work, treatment, procedures, and medical decision making performed by me. Departure Information Dispostion Home / Self-Care Referrals Marcial Peter M.D. (PCP) Forms HOME CARE DOCUMENTATION FORM, IMPORTANT VISIT INFORMATION, WORK / SCHOOL INSTRUCTIONS Patient Instructions My [facility] Additional Instructions Diagnosis: Hyperglycemia Please contact Dr. Peter's office for follow-up within 7-10 days. You may need referral to the diabetes nurse educator/nutrition/endocrinology. Take your Metformin and Tradjenta in the moring upon awakening, and your second dose of metformin 12 hours later. Attempt to keep a regular schedule with these medications. Check your blood sugar 2-3 times daily and keep a log for your doctor. Drink plenty of clear fluids. Avoid sugary drinks and simple carbohydrates. Return to the emergency department for worsening of symptoms or any medical concerns per
[2017-10-18 15:07] LABS: BASO % 0.6 %; BASO ABS # 0.05 K/uL (0-0.2); EOS % 2.6 %; HEMATOCRIT 42.5 % (42-52); HEMOGLOBIN 14.9 g/dL (14.0-18.0); IG# 0.14 K/uL (0.00-0.02); LYMPH ABS # 1.87 K/uL (1.2-3.4); MEAN CELL VOLUME 93.2 fL (80-100); MEAN CORPUSCULAR HEMOGLOBIN 32.7 pg (25-34); MEAN CORPUSCULAR HGB CONC 35.1 g/dl (32-36); MEAN PLATELET VOLUME 11.7 fL (7.4-10.4); MONO % 8.1 %; MONO ABS # 0.63 K/uL (0.11-0.59); NEUT % 62.9 %; PLATELET COUNT 171 K/uL (130-400); RED CELL DISTRIBUTION WIDTH CV 12.8 % (11.5-14.5); RED CELL DISTRIBUTION WIDTH SD 43.7 fL (36.4-46.3); WHITE BLOOD COUNT 7.79 K/uL (4.8-10.8)
[2017-10-18 15:26] LABS: ALBUMIN 3.4 gm/dl (3.4-5.0); CALCIUM 8.9 mg/dl (8.5-10.1); CREATININE 0.94 mg/dl (0.60-1.40)
[2017-10-18 15:28] LABS: TOTAL PROTEIN 7.2 gm/dl (6.4-8.2)
[2017-10-18 18:46] VITALS: BP 145/98; PULSE 104; O2SAT 99
== END 2017-10-18 18:44 | disposition home or self-care (01) ==
LOC: C.EDB 14:23 → C.EDC 18:44
DX: E11.65 Type 2 diabetes mellitus with hyperglycemia (principal); G47.30 Sleep apnea, unspecified; Z79.899 Other long term (current) drug therapy; Z82.49 Family history of ischemic heart disease and other diseases of the circulatory system; Z84.1 Family history of disorders of kidney and ureter

== ENCOUNTER 2017-11-05 00:40 | Emergency (ER) | payer OTHER ==
[~2017-11-05] VITALS: Ht 172.7 cm; Wt 156.6 kg
[2017-11-05 00:45] VITALS: TEMP 36.8; Ht 172.7 cm; Wt 156.6 kg
[2017-11-05] MEDS ORDERED: ACETAMINOPHEN 500 MG TAB PO STA (01:49)
--- NOTE | 2017-11-05 02:06 | EMERGENCY ROOM VISIT NOTE ---
History Report prepared by Joaquín: Jayde Hunter Under the Supervision of: Dr. Kassidy Landon D.O. First contact with patient: 00:50 Chief Complaint: FOOT PAIN Stated Complaint: LEFT FOOT History of Present Illness The patient is a 47 year old male who presents to the Emergency Room with complaints of persistent left foot pain that began 5 days ago. He reports that he was playing with his nephews when he jumped off his porch and landed on some unsteady boards. The patient states that he has a stabbing pain in the top and bottom of his foot when he walks. 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 Source of History: patient Onset: 5 days ago Position: foot (left) Quality: other (left foot pain) Timing: other (persistent) Modifying Factors (Worsening): other (walking) Review of Systems The patient denies injuring any other part of his body during this event. Past Medical & Surgical Medical Problems: (1) Cellulitis of left lower leg (2) Diabetes (3) Diverticulitis (4) Sleep apnea Surgical Problems: (1) S/P tonsillectomy Family History Diabetes mellitus FHx: cancer FHx: heart disease Hypertension Kidney disease Kidney stones Social History Smoking Status: Never Smoker Alcohol Use: none Drug Use: none Marital Status: Housing Status: lives with family Occupation Status: employed Current/Historical Medications Scheduled Linagliptin (Tradjenta), 5 MG PO QAM Metformin Hcl (Glucophage), 1,000 MG PO BID Allergies Coded Allergies: Tramadol (Verified Allergy, Unknown, urinary retention, 10/18/17) pt Physical Exam Vital Signs Date Time Temp Pulse Resp B/P (MAP) Pulse Ox O2 Delivery O2 Flow Rate FiO2 11/05/17 02:50 96 26 127/83 95 Room Air 11/05/17 00:45 36.8 107 20 147/90 96 Room Air Physical Exam Lower extremity: Pain in plantar surface of forefoot of the left foot and pain over left 5th metatarsal. He has easily palpable dorsalis pedis and posterior tibial pulses. He has good sensation of the toes. He has a chronic appearing athlete's foot. Medical Decision & Procedures ER Provider Diagnostic Interpretation: Left foot x-ray results as stated below per interpretation by me: No obvious fraction of 5th metatarsal. No midfoot fracture. Medications Administered Medications (Trade) Dose Ordered Sig/Kaelyn Route Start Time Stop Time Status Last Admin Dose Admin Acetaminophen (Tylenol Tab) 1,000 mg NOW STAT PO 11/05/17 01:49 11/05/17 01:50 DC 11/05/17 01:54 1,000 MG Procedure 0149: Ordered Tylenol Tab 1000mg PO. ED Course 0156: Past medical records reviewed. The patient was evaluated in room C9. 0149: Ordered Tylenol Tab 1000mg PO. The patient had an x-ray of the left foot 0236: Upon reevaluation, the patient is feeling much better. I discussed findings and results with him. He verbalized agreement of the treatment plan. He was discharged home. Medical Decision The patient is a 47 year old male who presents to the ED with foot pain. Differential diagnosis includes fifth metatarsal fracture, contusion, midfoot fracture or ligamentous injury. The patient suffered his injury 5 days ago. He has had persistent pain through the foot. X-ray was negative for any fracture. This appears to be a contusion to the foot. I have asked him to rest that foot and elevate it. He can use Tylenol for pain. If the pain were to persist, he should follow-up with his PCP for possible CT scanning for occult fracture. Medication Reconcilliation Current Medication List: was personally reviewed by me Blood Pressure Screening Patient's blood pressure: Normal blood pressure Blood pressure disposition: Did not require urgent referral Impression Primary Impression: Contusion of left foot Scribe Attestation The scribe's documentation has been prepared under my direction and personally reviewed by me in its entirety. I confirm that the note above accurately reflects all work, treatment, procedures, and medical decision making performed by me. Departure Information Dispostion Home / Self-Care Referrals No Doctor, Assigned (PCP) Forms HOME CARE DOCUMENTATION FORM, IMPORTANT VISIT INFORMATION Patient Instructions My [facility] Additional Instructions Rest your foot. Elevate it. Use tylenol for pain Follow up with PCP if pain continues for possible CT of midfoot Problem Qualifiers Primary Impression: Contusion of left foot Encounter type: initial encounter Qualified Codes: S90.32XA - Contusion of left foot, initial encounter
[2017-11-05 02:50] VITALS: BP 127/83; PULSE 96; O2SAT 95
--- NOTE | 2017-11-05 07:52 | DIAGNOSTIC IMAGING REPORT ---
LEFT FOOT 3 VIEWS HISTORY: eval left foot pain; fifth metatarsal COMPARISON: None. FINDINGS: There is no fracture or dislocation. Soft tissues are unremarkable. No radiopaque foreign bodies. Mild degenerative changes. The Lisfranc joint is intact. Plantar heel spur. IMPRESSION: No fractures. Electronically signed by: Jeremiah Espinoza M.D. 11/05/2017 7:50 AM Dictated Date/Time: 11/05/2017 7:49 AM
[2017-11-05] MEDS ORDERED: LINA1TAB PO (20:14)
[2017-11-05] MEDS ORDERED: METF-384 PO (23:49)
== END 2017-11-05 02:50 | disposition home or self-care (01) ==
LOC: C.EDB 00:41 → C.EDC 02:50
DX: S90.32XA Contusion of left foot, initial encounter (principal); X58.XXXA Exposure to other specified factors, initial encounter; Y93.83 Activity, rough housing and horseplay; E11.9 Type 2 diabetes mellitus without complications; G47.30 Sleep apnea, unspecified; Z83.3 Family history of diabetes mellitus; Z80.9 Family history of malignant neoplasm, unspecified; Z82.49 Family history of ischemic heart disease and other diseases of the circulatory system; Z84.1 Family history of disorders of kidney and ureter; Z79.899 Other long term (current) drug therapy; Z79.84 Long term (current) use of oral hypoglycemic drugs; Z88.8 Allergy status to other drugs, medicaments and biological substances

== ENCOUNTER 2017-11-19 10:38 | Emergency (ER) | payer OTHER ==
[~2017-11-19] VITALS: Ht 172.7 cm; Wt 153.9 kg
[2017-11-19 10:40] VITALS: TEMP 36.7; Ht 172.7 cm; Wt 153.9 kg
--- NOTE | 2017-11-19 11:46 | EMERGENCY ROOM VISIT NOTE ---
ED Visit Note First contact with patient: 10:52 CHIEF COMPLAINT: Sore throat / HISTORY OF PRESENT ILLNESS: This 47-year-old male presents to ER with chief complaint of sore throat which started yesterday morning. He states that it feels like "his throat is on fire". The patient also states that he has had some head congestion and productive cough secondary to postnasal drainage since yesterday as well. The patient denies any fever. The patient states he took some [id number] DayQuil and Mucinex for his symptoms. The patient states he called his family doctor but they could not see him until next week therefore he came to the emergency room to be evaluated for strep throat. The patient states he has had a tonsillectomy and adenoidectomy. REVIEW OF SYSTEMS: 10 system review was performed and was negative unless stated otherwise history of present illness. PMH: Diabetes, tonsillectomy, adenoidectomy, sleep apnea SOCIAL HISTORY: Patient lives at home. PHYSICAL EXAM: Vital Signs were reviewed: Reviewed Nurse's notes and agree. GENERAL: 47-year-old obese male appears in no acute distress. MENTAL STATUS: Alert, oriented, coherent. EARS: Canals clear. TMs good light reflex, no erythema or fluid level noted. NOSE: Nasal mucosa with moderate erythema engorgement. PHARYNX: Moderate erythema, no edema noted. No exudate noted. Airway is adequate. Tonsils absent NECK: Supple, non-tender. No lymphadenopathy noted. LUNGS: Clear to auscultation without wheezes rales or rhonchi. CARDIAC: Regular rate and rhythm without murmur. SKIN: No rashes noted. EMERGENCY COURSE: The patient was evaluated. Rapid strep was negative. Culture is pending. DIAGNOSIS: Acute pharyngitis, probably viral DISCHARGE INSTRUCTIONS & TREATMENT: Read the pharyngitis (sore throat) instruction sheet. Call for throat test result tomorrow. Ibuprofen for pain and fever every 6 hours. May also recommend [id number] steroid nasal spray to use as directed on the label to prevent postnasal drainage. Problem List Medical Problems: (1) Cellulitis of left lower leg Status: Resolved (2) Diverticulitis Status: Chronic (3) Sleep apnea Status: Chronic Surgical Problems: (1) S/P tonsillectomy Status: Resolved Current/Historical Medications Scheduled Linagliptin (Tradjenta), 5 MG PO QAM Metformin Hcl (Glucophage), 1,000 MG PO BID Allergies Coded Allergies: Tramadol (Verified Allergy, Unknown, urinary retention, 11/19/17) pt Vital Signs Date Time Temp Pulse Resp B/P (MAP) Pulse Ox O2 Delivery O2 Flow Rate FiO2 11/19/17 10:40 36.7 18 76 166/95 99 Room Air 11/19/17 10:40 99 Room Air Departure Information Referrals Marcial Peter M.D. (PCP) Patient Instructions [facility]
[2017-11-19 11:52] VITALS: BP 161/97; PULSE 83; O2SAT 96
== END 2017-11-19 11:53 | disposition home or self-care (01) ==
LOC: C.EDB 10:39 → C.EDD 11:53
DX: J02.9 Acute pharyngitis, unspecified (principal); E11.9 Type 2 diabetes mellitus without complications; G47.30 Sleep apnea, unspecified; Z90.89 Acquired absence of other organs; Z79.84 Long term (current) use of oral hypoglycemic drugs; Z88.6 Allergy status to analgesic agent

== ENCOUNTER 2017-11-24 01:22 | Emergency (ER) | payer OTHER ==
[~2017-11-24] VITALS: Ht 172.7 cm; Wt 153.9 kg
[2017-11-24 01:26] VITALS: TEMP 36.7; Ht 172.7 cm; Wt 153.9 kg
[2017-11-24] MEDS ORDERED: SODIUM CHLORIDE 0.9% 500ML 500 ML IV STA ×2 (01:39→02:26)
[2017-11-24] MEDS ORDERED: LIDOCAINE HCL 2% VISC SOLN 20 ML UDC MT STA (01:39)
[2017-11-24] MEDS ORDERED: OPTIRAY 320 IV PRN (01:45)
[2017-11-24] MEDS ORDERED: DEXAMETHASONE **PF** INJ 10 MG/ML VIAL IV ONE (01:45)
[2017-11-24 02:08] LABS: BASO % 0.6 %; BASO ABS # 0.06 K/uL (0-0.2); EOS % 2.9 %; EOS ABS # 0.28 K/uL (0-0.5); HEMATOCRIT 40.4 % (42-52); HEMOGLOBIN 14.2 g/dL (14.0-18.0); IG# 0.12 K/uL (0.00-0.02); LYMPH % 21.4 %; LYMPH ABS # 2.06 K/uL (1.2-3.4); MEAN CELL VOLUME 93.1 fL (80-100); MEAN CORPUSCULAR HEMOGLOBIN 32.7 pg (25-34); MEAN CORPUSCULAR HGB CONC 35.1 g/dl (32-36); MEAN PLATELET VOLUME 11.5 fL (7.4-10.4); MONO % 8.1 %; MONO ABS # 0.78 K/uL (0.11-0.59); NEUT % 65.8 %; NEUT ABS # 6.31 K/uL (1.4-6.5); PLATELET COUNT 214 K/uL (130-400); RED CELL DISTRIBUTION WIDTH CV 12.8 % (11.5-14.5); RED CELL DISTRIBUTION WIDTH SD 43.4 fL (36.4-46.3); WHITE BLOOD COUNT 9.61 K/uL (4.8-10.8)
[2017-11-24 02:25] LABS: CALCIUM 8.7 mg/dl (8.5-10.1); CREATININE 1.01 mg/dl (0.60-1.40); POTASSIUM 3.9 mmol/L (3.5-5.1)
--- NOTE | 2017-11-24 04:12 | EMERGENCY ROOM VISIT NOTE ---
History First contact with patient: 01:25 Chief Complaint: ILLNESS Stated Complaint: SICK-TONGUE SWOLLEN,CAN'T EAT History of Present Illness The patient is a 47 year old male who presents to the Emergency Room with complaints of dysphagia for the past few days steadily getting worse. Patient was seen here the other day and had a negative strep test. He has had a tonsillectomy. Patient denies fever, chills, chest pain, dyspnea, neck stiffness, earache, sinus pain or congestion, abdominal pain, vomiting, diarrhea. Patient states he is trying to eat oatmeal and had difficulty swallowing. Patient states his blood sugars normally run in the mid 200s. Review of Systems An 10 system review of systems was completed with positives and pertinent negatives listed in the HPI. Past Medical/Surgical History Medical Problems: (1) Cellulitis of left lower leg (2) Diabetes (3) Diverticulitis (4) Sleep apnea Surgical Problems: (1) S/P tonsillectomy Family History Diabetes mellitus FHx: cancer FHx: heart disease Hypertension Kidney disease Kidney stones Social History Smoking Status: Never Smoker Alcohol Use: none Drug Use: none Marital Status: Housing Status: lives with family Occupation Status: employed Current/Historical Medications Scheduled Linagliptin (Tradjenta), 5 MG PO QAM Metformin Hcl (Glucophage), 1,000 MG PO BID Physical Exam Vital Signs Date Time Temp Pulse Resp B/P (MAP) Pulse Ox O2 Delivery O2 Flow Rate FiO2 11/24/17 03:13 87 16 124/86 96 Room Air 11/24/17 01:26 36.7 100 18 156/86 95 Room Air Physical Exam VITALS: Vitals are noted on the nurse's note and reviewed by myself. Vital signs stable GENERAL: White male, in no acute distress, nondiaphoretic, well-developed well- nourished. SKIN: The skin was without rashes, erythema, edema, or bruising. There is no tenting of the skin. Capillary reflex less than 2 seconds. HEAD: Normocephalic atraumatic. EARS: External auditory canals clear, tympanic membranes pearly hopkins without erythema or effusion bilaterally. EYES: Pupils equal round and reactive to light and accommodation. Conjunctivae without injection, sclerae without icterus. Extraocular movements intact. NOSE: Patent, turbinates without inflammation or discharge. No sinus tenderness. MOUTH: Mucous membranes moist. Pharynx without erythema or exudate. Uvula midline. Airway patent. Tongue does not deviate. NECK: Supple without nuchal rigidity. No lymphadenopathy. No thyromegaly. Cervical spine is nontender. No JVD. HEART: Regular rate and rhythm LUNGS: Clear to auscultation bilaterally without wheezes, rales or rhonchi. No retractions or accessory muscle use. ABDOMEN: Positive bowel sounds x 4. Normal tympanic percussion. Soft, protuberant, obese, nontender, without masses or organomegaly. Nogueira sign negative. No guarding or rebound tenderness. No CVA tenderness MUSCULOSKELETAL: No muscle atrophy, erythema, noted. NEURO: Patient was alert and oriented to person place and time. Normal sensation to light and sharp touch. No focal neurological deficits. Medical Decision & Procedures Laboratory Results 11/24/17 01:48 Red Blood Count 4.34, Mean Corpuscular Volume 93.1, Mean Corpuscular Hemoglobin 32.7, Mean Corpuscular Hemoglobin Concent 35.1, Mean Platelet Volume 11.5, Neutrophils (%) (Auto) 65.8, Lymphocytes (%) (Auto) 21.4, Monocytes (%) (Auto) 8.1, Eosinophils (%) (Auto) 2.9, Basophils (%) (Auto) 0.6, Neutrophils # (Auto) 6.31, Lymphocytes # (Auto) 2.06, Monocytes # (Auto) 0.78, Eosinophils # (Auto) 0.28, Basophils # (Auto) 0.06 11/24/17 01:48 Test 11/24/17 01:48 White Blood Count 9.61 K/uL (4.8-10.8) Red Blood Count 4.34 M/uL (4.7-6.1) Hemoglobin 14.2 g/dL (14.0-18.0) Hematocrit 40.4 % (42-52) Mean Corpuscular Volume 93.1 fL (80-100) Mean Corpuscular Hemoglobin 32.7 pg (25-34) Mean Corpuscular Hemoglobin Concent 35.1 g/dl (32-36) Platelet Count 214 K/uL (130-400) Mean Platelet Volume 11.5 fL (7.4-10.4) Neutrophils (%) (Auto) 65.8 % Lymphocytes (%) (Auto) 21.4 % Monocytes (%) (Auto) 8.1 % Eosinophils (%) (Auto) 2.9 % Basophils (%) (Auto) 0.6 % Neutrophils # (Auto) 6.31 K/uL (1.4-6.5) Lymphocytes # (Auto) 2.06 K/uL (1.2-3.4) Monocytes # (Auto) 0.78 K/uL (0.11-0.59) Eosinophils # (Auto) 0.28 K/uL (0-0.5) Basophils # (Auto) 0.06 K/uL (0-0.2) RDW Standard Deviation 43.4 fL (36.4-46.3) RDW Coefficient of Variation 12.8 % (11.5-14.5) Immature Granulocyte % (Auto) 1.2 % Immature Granulocyte # (Auto) 0.12 K/uL (0.00-0.02) Anion Gap 5.0 mmol/L (3-11) Est Creatinine Clear Calc Drug Dose 134.0 ml/min Estimated GFR () 103.6 Estimated GFR (Non- 89.4 BUN/Creatinine Ratio 13.6 (10-20) Calcium Level 8.7 mg/dl (8.5-10.1) Medications Administered Medications (Trade) Dose Ordered Sig/Kaelyn Route Start Time Stop Time Status Last Admin Dose Admin Dexamethasone Sodium Phosphate (Dexamethasone Inj Pf) 10 mg NOW ONCE IV 11/24/17 01:45 11/24/17 01:46 DC 11/24/17 01:54 10 MG Sodium Chloride 500 ml @ 999 mls/hr Q31M STAT IV 11/24/17 01:39 11/24/17 02:09 DC 11/24/17 01:54 999 MLS/HR Lidocaine HCl (Viscous Lidocaine 2% Soln) 10 ml NOW STAT MT 11/24/17 01:39 11/24/17 01:40 DC 11/24/17 01:51 10 ML Sodium Chloride 500 ml @ 999 mls/hr Q31M STAT IV 11/24/17 02:26 11/24/17 02:56 DC 11/24/17 02:29 999 MLS/HR ED Course Prior records/ancillary studies reviewed. Triage Nursing notes reviewed. The patient's history was concerning for difficulty swallowing. Differential diagnosis: Etiologies such as viral syndrome, tonsillitis, epiglottitis, supraglottitis, sinusitis, streptococcal pharyngitis, mononucleosis, peritonsillar abscess, retropharyngeal abscess, otitis, pneumonia, influenza, as well as others were entertained. ER treatment provided: Decadron, viscous lidocaine, Augmentin On reassessment the patient felt better. Diagnostics interpreted by me: The labs revealed stable H&H. Hyperglycemia without DKA Imaging studies: CT NECK: Moderate mucosal thickening of the maxillary and ethmoid sinuses. Visualized brain is normal. No mass, lymphadenopathy, fluid collection. The aerodigestive tract is patent throughout. Epiglottis is not thickened. Alignment vessels are patent. Thyroid gland is normal. Lungs are clear. Radiologist: Melissa Cabello MD This appears to be consistent with sinusitis with dysphagia. Patient had a negative strep test the other day. Stable H&H. No leukocytosis. Hyperglycemia without DKA. Patient was advised to take medications as directed , rest, stay well-hydrated, monitor his blood sugars and follow-up family care in a day or 2 here in the ER sooner for headache, chest pain, neck stiffness, dysphagia, worsening sinus symptoms or as needed. Patient was able tolerate fluids. He is maintaining his own secretions and airway. By the evaluation outlined above emergent etiologies such as peritonsillar abscess, retropharyngeal abscess, otitis, pneumonia, meningitis, urinary tract infection , sepsis, bacteremia, as well as others were deemed relatively unlikely. The pt informed about the findings as listed above. All questions were answered and pleased with the treatment. Return instructions were outlined and the patient was discharged in stable condition. Outpatient prescription management: Augmentin Referral: The patient was referred back to their primary care physician for follow-up in 2 to 3 days for a recheck of the current condition. Medical Decision As above Medication Reconcilliation Current Medication List: was personally reviewed by me Blood Pressure Screening Patient's blood pressure: Normal blood pressure Impression Primary Impression: Maxillary sinusitis, acute Additional Impression: Dysphasia Departure Information Dispostion Home / Self-Care Condition GOOD Referrals Marcial Peter M.D. (PCP) Patient Instructions My [facility] Additional Instructions Monitor your blood sugars. They were high. Amoxicillin Clavulanate (Augmentin) 875mg: Take one pill twice daily for 10 days for your infection. All antibiotics can cause diarrhea. If this occurs and you feel worse or it does not resolve in 1-2 days follow up with your doctor or return to the Emergency Department as this could be signs of serious underlying problems. Any medication can cause an allergic reaction, stop the pills immediately and return to the ER for rash, hives, breathing difficulties, or swelling. Acetaminophen(Tylenol) may be used for fever or pain. Use 1000mg every six hours as needed. Avoid using more than 3000mg in a 24 hour period. (AND/OR) Ibuprofen(Motrin, Advil) may be used for fever or pain. Use 600mg every six hours as needed. Take with food. Avoid using more than 2400mg in a 24 hour period. Do not use 2400mg per day for more than three consecutive days without physician direction. Prolonged inappropriate use can lead to stomach upset or ulcers. Afrin nasal spray: 2-3 sprays to each nostril twice daily as needed for congestion. Do not use for more than 3-4 days because it can lead to worsening rebound congestion. Pseudoephedrine(Sudaphed): 30-60mg every 6 hours as needed for nasal congestion. Do not take this with other stimulant products or supplements. Rest and drink plenty of fluids. Controlling your fever with Tylenol and Ibuprofen as above will make you feel better. Wash your hands after nose blowing, sneezing, or coughing. Most germs are spread through contact, therefore improper hygiene may result in your close contacts and loved ones becoming ill just like you. Continue current medications. Return to the ER for severe headache, neck stiffness, chest pain, difficulty breathing, fevers, vomiting, worsening of your condition, or as needed. Follow up with your primary physician this week for a recheck of your current condition. Problem Qualifiers Primary Impression: Maxillary sinusitis, acute Recurrence: not specified as recurrent Qualified Codes: J01.00 - Acute maxillary sinusitis, unspecified
[2017-11-24] MEDS ORDERED: AMOX875T PO (04:13)
[2017-11-24] MEDS ORDERED: AMOXICIL/CLAVU 875MG HOME PACK PO ONE (04:15)
[2017-11-24 04:27] VITALS: BP 138/91; PULSE 93; O2SAT 96
[2017-11-24] MEDS ORDERED: LIDO2SOL19 PO (04:32)
--- NOTE | 2017-11-24 06:31 | DIAGNOSTIC IMAGING REPORT ---
CT SCAN OF THE NECK WITH IV CONTRAST CLINICAL HISTORY: Dysphagia. COMPARISON STUDY: CT of the neck dated 12/09/2014. TECHNIQUE: Following the IV administration of 94 cc of Optiray 320, CT scan of the soft tissues of the neck was performed from the skull base to the upper chest. Images are reviewed in the axial, sagittal, and coronal planes. IV contrast was administered without complication. A dose lowering technique was utilized adhering to the principles of ALARA. CT DOSE: 969.86 mGy.cm FINDINGS: Pharynx: The nasopharynx, oropharynx, and laryngeal pharynx are normal in appearance. The pharyngeal airway is widely patent. There is no evidence of mass lesion. The vocal cords are symmetric. The parapharyngeal fat is well maintained. The prevertebral/retropharyngeal soft tissues are within normal limits. Epiglottis is normal. Lymphadenopathy: No cervical lymphadenopathy is seen Thyroid: Normal in size and attenuation. Salivary glands: The parotid and submandibular glands are within normal limits. Brain parenchyma: The visualized brain parenchyma at the skull base is normal in appearance. Vascular structures: The carotid arteries and jugular veins are widely patent bilaterally. Skeletal structures: Imaged portions of the calvarium at the skull base are within normal limits. The cervical spine appears intact noting mild multilevel spondylosis. Sinuses and mastoids: There is moderate mucosal thickening within the maxillary antra, left greater than right. Moderate mucosal thickening is also seen within the ethmoid sinuses and the left frontal sinus. Mild to moderate mucosal thickening is seen in the right frontal and sphenoid sinuses. The mastoid air cells are well pneumatized. Orbits: The bony orbits are intact. Orbital contents are normal in appearance. Lung apices: Visualized apical lung parenchyma is clear. IMPRESSION: 1. No acute pharyngeal abnormality is identified. 2. Paranasal disease as above. 3. There is no mass, fluid collection, or adenopathy. Electronically signed by: Beau Russell M.D. 11/24/2017 6:29 AM Dictated Date/Time: 11/24/2017 6:23 AM
== END 2017-11-24 04:27 | disposition home or self-care (01) ==
LOC: C.EDB 01:23
DX: J01.00 Acute maxillary sinusitis, unspecified (principal); E11.9 Type 2 diabetes mellitus without complications; G47.30 Sleep apnea, unspecified; Z83.3 Family history of diabetes mellitus; Z80.9 Family history of malignant neoplasm, unspecified; Z82.49 Family history of ischemic heart disease and other diseases of the circulatory system; Z84.1 Family history of disorders of kidney and ureter; Z79.84 Long term (current) use of oral hypoglycemic drugs; Z79.899 Other long term (current) drug therapy

== ENCOUNTER 2017-12-15 16:55 | Emergency (ER) | payer OTHER ==
[~2017-12-15] VITALS: Ht 172.7 cm; Wt 115.2 kg
[2017-12-15 17:12] VITALS: TEMP 36.8; Ht 172.7 cm; Wt 115.2 kg
[2017-12-15] MEDS ORDERED: SODIUM CHLORIDE 0.9% 1000ML 1,000 ML IV STA (17:32)
[2017-12-15 17:49] LABS: BASO % 0.7 %; BASO ABS # 0.05 K/uL (0-0.2); EOS ABS # 0.21 K/uL (0-0.5); HEMATOCRIT 40.9 % (42-52); HEMOGLOBIN 14.3 g/dL (14.0-18.0); IG# 0.09 K/uL (0.00-0.02); LYMPH % 20.8 %; LYMPH ABS # 1.44 K/uL (1.2-3.4); MEAN CELL VOLUME 91.9 fL (80-100); MEAN CORPUSCULAR HEMOGLOBIN 32.1 pg (25-34); MEAN PLATELET VOLUME 11.4 fL (7.4-10.4); MONO % 9.7 %; MONO ABS # 0.67 K/uL (0.11-0.59); NEUT % 64.5 %; NEUT ABS # 4.45 K/uL (1.4-6.5); PLATELET COUNT 178 K/uL (130-400); RED CELL DISTRIBUTION WIDTH SD 43.8 fL (36.4-46.3); WHITE BLOOD COUNT 6.91 K/uL (4.8-10.8)
--- NOTE | 2017-12-15 18:00 | DIAGNOSTIC IMAGING REPORT ---
CHEST ONE VIEW PORTABLE HISTORY: persistent cough COMPARISON: Chest 08/31/2017. FINDINGS: The lungs are clear. Cardiac silhouette is normal in size. No pleural effusions. No pneumothorax. IMPRESSION: No acute process. Electronically signed by: Jeremiah Espinoza M.D. 12/15/2017 5:59 PM Dictated Date/Time: 12/15/2017 5:58 PM
[2017-12-15 18:12] LABS: ALBUMIN 3.4 gm/dl (3.4-5.0); CALCIUM 8.5 mg/dl (8.5-10.1); CREATININE 0.94 mg/dl (0.60-1.40); TOTAL PROTEIN 7.5 gm/dl (6.4-8.2)
[2017-12-15] MEDS ORDERED: AMOX875T PO (18:28)
[2017-12-15] MEDS ORDERED: OPTIRAY 320 IV PRN (18:45)
--- NOTE | 2017-12-15 18:49 | DIAGNOSTIC IMAGING REPORT ---
HEAD CT NONCONTRAST CT DOSE: 858.82 mGy.cm HISTORY: headache, lightheaded TECHNIQUE: Multiaxial CT images of the head were performed without the use of intravenous contrast. Automated exposure control was utilized for this study. A dose lowering technique was utilized adhering to the principles of ALARA. Comparison: Head CT 11/23/2009. Findings: Moderate mucosal thickening within the right maxillary sinus and mild mucosal thickening within the remaining paranasal sinuses. The mastoid air cells are clear. The calvarium and skull base are intact. The ventricles and sulci are within normal limits. There is no mass, hematoma, midline shift, or acute infarct. Impression: No acute intracranial abnormality. Sinus disease as described above Electronically signed by: Jeremiah Espinoza M.D. 12/15/2017 6:48 PM Dictated Date/Time: 12/15/2017 6:42 PM
--- NOTE | 2017-12-15 18:50 | EMERGENCY ROOM VISIT NOTE ---
History First contact with patient: 17:16 Chief Complaint: HYPERGLYCEMIA Stated Complaint: HIGH BP, HIGH BLOOD SUGAR, HEADACHE,BELLY PAIN Nursing Triage Summary: Pt sat down to eat at 1600 and suddenly became dizzy, had a headache, and felt "wobbly". Staff checked BSG which was 321 and he also had HTN, sent here for eval. Pt states he has a headache 3/10, currently that is the only sx he is experiencing. History of Present Illness The patient is a 47 year old male who presents to the Emergency Room with complaints of hypertension and hyperglycemia. The patient states that he was at work just prior to arrival and he sat down to eat lunch. He states that he took a bite of food and felt shaky, lightheaded and had a headache. [facility] and his blood sugar was found to be 321 and his blood pressure was elevated. He is unsure of the exact number of his blood pressure. He states that he does not have any history of hypertension, but his blood pressure becomes elevated when his blood sugar is high. He feels better at this time and states he has a mild headache rated a 3/ 10. He has been dealing with a sinusitis for several weeks and is currently on amoxicillin. He took his metformin this morning and Mucinex [id number]. He does not take any insulin for his blood sugars. He states that his sugar is normally in the 200s but sometimes spikes up higher. The patient also reports that he has had a cough for several weeks with his sinus infection, and that when he coughs he has pain in the left side of his abdomen. He is concerned he may have a hernia. He denies any nausea/vomiting, syncope, chest pain or shortness of breath. He denies any neck pain/stiffness or fevers. Review of Systems A complete 10 point review of systems was reviewed with the patient with pertinent positives and negatives as per history of present illness. All else were negative. Past Medical/Surgical History Medical Problems: (1) Cellulitis of left lower leg (2) Diabetes (3) Diverticulitis (4) Sleep apnea Surgical Problems: (1) S/P tonsillectomy Family History Diabetes mellitus FHx: cancer FHx: heart disease Hypertension Kidney disease Kidney stones Social History Smoking Status: Never Smoker Alcohol Use: none Drug Use: none Marital Status: Housing Status: lives with family Occupation Status: employed Current/Historical Medications Scheduled Amoxicillin & Pot Clavulanate (Augmentin 875-125 mg), 1 TAB PO BID Linagliptin (Tradjenta), 5 MG PO QAM Metformin Hcl (Glucophage), 1,000 MG PO BID Physical Exam Vital Signs Date Time Temp Pulse Resp B/P (MAP) Pulse Ox O2 Delivery O2 Flow Rate FiO2 12/15/17 19:20 82 19 125/81 97 12/15/17 18:22 90 22 126/84 98 Room Air 12/15/17 17:12 36.8 101 22 158/98 98 Room Air Physical Exam VITALS: Vitals are noted on the nurse's note and reviewed by myself. Vital signs stable. GENERAL: This is a 47-year-old male, in no acute distress, nondiaphoretic, well- developed well-nourished. SKIN: The skin was without rashes. HEAD: Normocephalic atraumatic. EARS: External auditory canals clear, tympanic membranes pearly hopkins without erythema or effusion bilaterally. EYES: Pupils equal round and reactive to light and accommodation. Extraocular movements intact. MOUTH: Mucous membranes moist. NECK: Supple without nuchal rigidity. No lymphadenopathy. HEART: Regular rate and rhythm without murmurs gallops or rubs. LUNGS: Clear to auscultation bilaterally without wheezes, rales or rhonchi. ABDOMEN: Positive bowel sounds x 4. Obese abdomen. Minimal tenderness to palpation to the left mid abdomen. No guarding or rebound tenderness. MUSCULOSKELETAL: Strength 5/5 throughout. NEURO: Patient was alert and oriented to person place and time. No focal neurological deficits. Medical Decision & Procedures ER Provider Diagnostic Interpretation: CHEST ONE VIEW PORTABLE FINDINGS: The lungs are clear. Cardiac silhouette is normal in size. No pleural effusions. No pneumothorax. IMPRESSION: No acute process. HEAD CT NONCONTRAST Findings: Moderate mucosal thickening within the right maxillary sinus and mild mucosal thickening within the remaining paranasal sinuses. The mastoid air cells are clear. The calvarium and skull base are intact. The ventricles and sulci are within normal limits. There is no mass, hematoma, midline shift, or acute infarct. Impression: No acute intracranial abnormality. Sinus disease as described above ABDOMEN AND PELVIS CT WITH IV CONTRAST FINDINGS: The lung bases are clear. No pneumoperitoneum. No pneumatosis. No fractures within the visualized osseous structures. Tiny fat-containing umbilical hernia. A 3 cm diverticulum at the junction of the third and fourth portion of the duodenum. Hepatic steatosis. The gallbladder, pancreas, spleen, right adrenal gland, and kidneys are unremarkable. No hydronephrosis. No retroperitoneal lymphadenopathy. Normal caliber abdominal aorta. Normal bladder. Colonic diverticulosis. No bowel wall thickening or obstruction. Normal appendix. There is a 1 cm indeterminate nodule within the left adrenal gland. IMPRESSION: 1. No acute process within the abdomen or pelvis. 2. No bowel wall thickening or obstruction. 3. Colonic diverticulosis. 4. Normal appendix. 5. Hepatic steatosis. 6. A 1 cm indeterminate left adrenal gland nodule. Laboratory Results 12/15/17 17:35 Red Blood Count 4.45, Mean Corpuscular Volume 91.9, Mean Corpuscular Hemoglobin 32.1, Mean Corpuscular Hemoglobin Concent 35.0, Mean Platelet Volume 11.4, Neutrophils (%) (Auto) 64.5, Lymphocytes (%) (Auto) 20.8, Monocytes (%) (Auto) 9.7, Eosinophils (%) (Auto) 3.0, Basophils (%) (Auto) 0.7, Neutrophils # (Auto) 4.45, Lymphocytes # (Auto) 1.44, Monocytes # (Auto) 0.67, Eosinophils # (Auto) 0.21, Basophils # (Auto) 0.05 12/15/17 17:35 Test 12/15/17 17:28 12/15/17 17:35 Bedside Glucose 280 mg/dl (70-99) White Blood Count 6.91 K/uL (4.8-10.8) Red Blood Count 4.45 M/uL (4.7-6.1) Hemoglobin 14.3 g/dL (14.0-18.0) Hematocrit 40.9 % (42-52) Mean Corpuscular Volume 91.9 fL (80-100) Mean Corpuscular Hemoglobin 32.1 pg (25-34) Mean Corpuscular Hemoglobin Concent 35.0 g/dl (32-36) Platelet Count 178 K/uL (130-400) Mean Platelet Volume 11.4 fL (7.4-10.4) Neutrophils (%) (Auto) 64.5 % Lymphocytes (%) (Auto) 20.8 % Monocytes (%) (Auto) 9.7 % Eosinophils (%) (Auto) 3.0 % Basophils (%) (Auto) 0.7 % Neutrophils # (Auto) 4.45 K/uL (1.4-6.5) Lymphocytes # (Auto) 1.44 K/uL (1.2-3.4) Monocytes # (Auto) 0.67 K/uL (0.11-0.59) Eosinophils # (Auto) 0.21 K/uL (0-0.5) Basophils # (Auto) 0.05 K/uL (0-0.2) RDW Standard Deviation 43.8 fL (36.4-46.3) RDW Coefficient of Variation 13.0 % (11.5-14.5) Immature Granulocyte % (Auto) 1.3 % Immature Granulocyte # (Auto) 0.09 K/uL (0.00-0.02) Anion Gap 6.0 mmol/L (3-11) Est Creatinine Clear Calc Drug Dose 122.3 ml/min Estimated GFR () 113.0 Estimated GFR (Non- 97.5 BUN/Creatinine Ratio 9.7 (10-20) Calcium Level 8.5 mg/dl (8.5-10.1) Total Bilirubin 0.5 mg/dl (0.2-1) Aspartate Amino Transf (AST/SGOT) 24 U/L (15-37) Alanine Aminotransferase (ALT/SGPT) 42 U/L (12-78) Alkaline Phosphatase 45 U/L (45-117) Total Protein 7.5 gm/dl (6.4-8.2) Albumin 3.4 gm/dl (3.4-5.0) Globulin 4.1 gm/dl (2.5-4.0) Albumin/Globulin Ratio 0.8 (0.9-2) Medications Administered Medications (Trade) Dose Ordered Sig/Kaelyn Route Start Time Stop Time Status Last Admin Dose Admin Sodium Chloride 1,000 ml @ 999 mls/hr Q1H1M STAT IV 12/15/17 17:32 12/15/17 18:32 DC 12/15/17 17:41 999 MLS/HR Medical Decision Differential diagnosis includes dehydration, blood sugar abnormality, electrolyte abnormality, among others. The patient was evaluated as above. Labs were drawn and IV access was obtained. Labs revealed no leukocytosis, anemia or concerning electrolyte abnormalities. CT of the head was unremarkable. Chest x-ray showed no pneumonia. Patient was also very concerned about some pain he has had in his left abdomen with coughing. CT of the abdomen and pelvis with IV contrast was performed and showed no abnormalities. The patient was advised to follow-up with his PCP for all of these concerns. He did report hypertension prior to arrival, however had a normal blood pressure here. Blood sugar was in the 200s which is normal for him. The patient will call his PCP tomorrow to schedule follow-up. He verbalized understanding of my assessment and treatment plan and was discharged home in good condition. Medication Reconcilliation Current Medication List: was personally reviewed by me Blood Pressure Screening Patient's blood pressure: Normal blood pressure Impression Primary Impression: Lightheaded Departure Information Dispostion Home / Self-Care Condition GOOD Referrals Marcial Peter M.D. (PCP) Patient Instructions My [facility] Additional Instructions It is very important to follow-up with your primary care provider from today's visit. Contact them in the morning to schedule a follow-up this week. For pain control, you can use the following [id number] medicines (if >12 yo): - Regular strength (325mg/tab) Tylenol (acetaminophen) 2 tabs every 4-6 hours as needed. Do not exceed 12 tablets in a 24 hour period. Avoid taking more than 4 grams (4000 mg) of Tylenol per day. This includes any other sources of acetaminophen you may take on a regular basis. - Regular strength (200 mg/tab) Advil (ibuprofen) 1-2 tabs every 4-6 hours as needed. Do not exceed a dose of 3200 mg per day. Make sure to check your blood sugars closely. Drink plenty of water and stay well-hydrated. Return here for any worsening or new/concerning symptoms.
--- NOTE | 2017-12-15 19:01 | DIAGNOSTIC IMAGING REPORT ---
ABDOMEN AND PELVIS CT WITH IV CONTRAST CT DOSE: 2159.44 mGy.cm HISTORY: left sided abdominal pain when coughing TECHNIQUE: Multiaxial CT images of the abdomen and pelvis were performed following the use of intravenous contrast. A dose lowering technique was utilized adhering to the principles of ALARA. COMPARISON STUDY: Abdomen and pelvis CT 02/19/2014. FINDINGS: The lung bases are clear. No pneumoperitoneum. No pneumatosis. No fractures within the visualized osseous structures. Tiny fat-containing umbilical hernia. A 3 cm diverticulum at the junction of the third and fourth portion of the duodenum. Hepatic steatosis. The gallbladder, pancreas, spleen, right adrenal gland, and kidneys are unremarkable. No hydronephrosis. No retroperitoneal lymphadenopathy. Normal caliber abdominal aorta. Normal bladder. Colonic diverticulosis. No bowel wall thickening or obstruction. Normal appendix. There is a 1 cm indeterminate nodule within the left adrenal gland. IMPRESSION: 1. No acute process within the abdomen or pelvis. 2. No bowel wall thickening or obstruction. 3. Colonic diverticulosis. 4. Normal appendix. 5. Hepatic steatosis. 6. A 1 cm indeterminate left adrenal gland nodule. Electronically signed by: Jeremiah Espinoza M.D. 12/15/2017 6:59 PM Dictated Date/Time: 12/15/2017 6:48 PM
[2017-12-15 19:20] VITALS: BP 125/81; PULSE 82; O2SAT 97
[2017-12-15] MEDS ORDERED: LINA1TAB PO (20:14)
[2017-12-15] MEDS ORDERED: METF-384 PO (23:49)
== END 2017-12-15 19:20 | disposition home or self-care (01) ==
LOC: C.EDB 16:56 → C.EDC 19:20
DX: R42 Dizziness and giddiness (principal); E11.65 Type 2 diabetes mellitus with hyperglycemia; G47.30 Sleep apnea, unspecified; Z83.3 Family history of diabetes mellitus; Z80.9 Family history of malignant neoplasm, unspecified; Z82.49 Family history of ischemic heart disease and other diseases of the circulatory system; Z84.1 Family history of disorders of kidney and ureter; Z79.899 Other long term (current) drug therapy; Z79.84 Long term (current) use of oral hypoglycemic drugs

== ENCOUNTER 2018-03-14 17:49 | Emergency (ER) | payer OTHER ==
[~2018-03-14] VITALS: Ht 172.7 cm; Wt 152.7 kg
[~2018-03-14 17:49] MED LIST changes: +INSU100I23 SQ; -LINA1TAB PO; -METF-384 PO; +[UNRECOGNIZED DRUG - CODE] SC
[2018-03-14 17:55] VITALS: Ht 172.7 cm; Wt 152.7 kg
[2018-03-14] MEDS ORDERED: SODIUM CHLORIDE 0.9% 1000ML 1,000 ML IV STA (18:25)
[2018-03-14 18:48] LABS: BASO % 0.6 %; BASO ABS # 0.05 K/uL (0-0.2); EOS % 1.6 %; EOS ABS # 0.14 K/uL (0-0.5); HEMATOCRIT 41.8 % (42-52); HEMOGLOBIN 14.7 g/dL (14.0-18.0); IG# 0.07 K/uL (0.00-0.02); LYMPH % 20.1 %; LYMPH ABS # 1.77 K/uL (1.2-3.4); MEAN CELL VOLUME 94.1 fL (80-100); MEAN CORPUSCULAR HEMOGLOBIN 33.1 pg (25-34); MEAN CORPUSCULAR HGB CONC 35.2 g/dl (32-36); MEAN PLATELET VOLUME 11.8 fL (7.4-10.4); MONO % 6.5 %; MONO ABS # 0.57 K/uL (0.11-0.59); NEUT % 70.4 %; PLATELET COUNT 184 K/uL (130-400); RED CELL DISTRIBUTION WIDTH CV 12.7 % (11.5-14.5); RED CELL DISTRIBUTION WIDTH SD 43.7 fL (36.4-46.3)
[2018-03-14] MEDS ORDERED: INSU100I23 SC (18:55)
[2018-03-14] MEDS ORDERED: CZR50 PO (18:55)
[2018-03-14 18:56] LABS: PTT PATIENT 24.1 SECONDS (21.0-31.0)
[2018-03-14 19:18] LABS: ALBUMIN 3.5 gm/dl (3.4-5.0); ALKALINE PHOSPHATASE 45 U/L (45-117); ALT/SGPT 40 U/L (12-78); AST/SGOT 19 U/L (15-37); BLOOD UREA NITROGEN 12 mg/dl (7-18); CALCIUM 8.8 mg/dl (8.5-10.1); CARBON DIOXIDE 27 mmol/L (21-32); GLUCOSE 287 mg/dl (70-99); LIPASE 206 U/L (73-393); SODIUM 137 mmol/L (136-145); TOTAL PROTEIN 7.2 gm/dl (6.4-8.2)
--- NOTE | 2018-03-14 19:50 | DIAGNOSTIC IMAGING REPORT ---
CHEST ONE VIEW PORTABLE CLINICAL HISTORY: EVALUATE ALTERED MENTAL STATUS/WEAKNESS COMPARISON STUDY: Chest radiograph February 07, 2018. FINDINGS: Lung volumes are normal. There is no pneumothorax or pleural effusion. There is no consolidation or evidence for pulmonary edema. Cardiac size is normal. Mediastinal contours are normal. 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 IMPRESSION: No acute cardiopulmonary findings. Electronically signed by: Shady Roger M.D. 03/14/2018 7:48 PM Dictated Date/Time: 03/14/2018 7:48 PM
--- NOTE | 2018-03-14 21:07 | EMERGENCY ROOM VISIT NOTE ---
History Report prepared by Joaquín: Shayla Valladares Under the Supervision of: Dr. Grover Urrutia D.O. First contact with patient: 18:21 Chief Complaint: HYPERTENSION Stated Complaint: HIGH BLOOD PRESSURE AND PULSE IS 135,SWEATY History of Present Illness The patient is a 48 year old male who presents to the Emergency Room with complaints of an episode of diaphoresis and shakiness that started today. The patient notes that he went to the medical office at [facility], where he works, and that he had abnormal vital signs including hypertension. The patient reports that he was then instructed to report to the ED. The patient denies any chest pain, trouble breathing, or fever. He notes that he is diabetic and has diarrhea secondary to his diabetes medication. Source of History: patient Onset: today Position: other (generalized) Quality: other (sweatiness and shakiness) Timing: other (episode) Associated Symptoms: + diaphoresis, + weakness (shakiness), No fevers, No chest pain Note: Additional symptoms: hypertension Denies: difficulty breathing Review of Systems See HPI for pertinent positives & negatives. A total of 10 systems reviewed and were otherwise negative. Past Medical & Surgical Medical Problems: (1) Cellulitis of left lower leg (2) Diabetes (3) Diverticulitis (4) Sleep apnea Surgical Problems: (1) S/P tonsillectomy Family History Diabetes mellitus FHx: cancer FHx: heart disease Hypertension Kidney disease Kidney stones Social History Smoking Status: Never Smoker Alcohol Use: none Drug Use: none Marital Status: Housing Status: lives with family Occupation Status: employed Current/Historical Medications Scheduled Insulin Glargine (Basaglar Kwikpen), 14 UNITS SC QAM Losartan Potassium (Losartan Potassium), 50 MG PO DAILY Metformin Hcl (Glucophage), 1,000 MG PO BID Allergies Coded Allergies: Tramadol (Verified Allergy, Unknown, urinary retention, 02/07/18) pt Physical Exam Vital Signs Date Time Temp Pulse Resp B/P (MAP) Pulse Ox O2 Delivery O2 Flow Rate FiO2 03/14/18 21:15 36.8 96 20 137/100 97 03/14/18 20:50 96 20 137/100 97 Room Air 03/14/18 19:32 99 26 132/84 95 Room Air 03/14/18 18:37 107 03/14/18 18:26 104 18 143/98 Room Air 03/14/18 17:55 36.8 116 18 129/83 96 Room Air Physical Exam CONSTITUTIONAL/VITAL SIGNS: Reviewed / noted above. GENERAL: Non-toxic in appearance. INTEGUMENTARY: Warm, dry, and [place]. HEAD: Normocephalic. EYES: without scleral icterus or trauma. ENT/OROPHARYNX: clear and moist. LYMPHADENOPATHY/NECK: Is supple without lymphadenopathy or meningismus. RESPIRATORY: Lungs clear and equal. CARDIOVASCULAR: Regular rate and rhythm. GI/ABDOMEN: Soft and nontender. No organomegaly or pulsatile mass. No rebound or guarding. Normal bowel sounds. EXTREMITIES: Warm and well perfused. BACK: No CVA tenderness. NEUROLOGICAL: Intact without focal deficits. PSYCHIATRIC: normal affect. MUSCULOSKELETAL: Normally developed with good muscle tone. Medical Decision & Procedures ER Provider Diagnostic Interpretation: Radiology results as stated below per my review and radiologist interpretation: CHEST ONE VIEW PORTABLE CLINICAL HISTORY: EVALUATE ALTERED MENTAL STATUS/WEAKNESS COMPARISON STUDY: Chest radiograph February 07, 2018. FINDINGS: Lung volumes are normal. There is no pneumothorax or pleural effusion. There is no consolidation or evidence for pulmonary edema. Cardiac size is normal. Mediastinal contours are normal. 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 IMPRESSION: No acute cardiopulmonary findings. Electronically signed by: Shady Roger M.D. 03/14/2018 7:48 PM Dictated Date/Time: 03/14/2018 7:48 PM Laboratory Results 03/14/18 18:35 Red Blood Count 4.44, Mean Corpuscular Volume 94.1, Mean Corpuscular Hemoglobin 33.1, Mean Corpuscular Hemoglobin Concent 35.2, Mean Platelet Volume 11.8, Neutrophils (%) (Auto) 70.4, Lymphocytes (%) (Auto) 20.1, Monocytes (%) (Auto) 6.5, Eosinophils (%) (Auto) 1.6, Basophils (%) (Auto) 0.6, Neutrophils # (Auto) 6.20, Lymphocytes # (Auto) 1.77, Monocytes # (Auto) 0.57, Eosinophils # (Auto) 0.14, Basophils # (Auto) 0.05 03/14/18 18:35 Test 03/14/18 18:35 03/14/18 20:15 White Blood Count 8.80 K/uL (4.8-10.8) Red Blood Count 4.44 M/uL (4.7-6.1) Hemoglobin 14.7 g/dL (14.0-18.0) Hematocrit 41.8 % (42-52) Mean Corpuscular Volume 94.1 fL (80-100) Mean Corpuscular Hemoglobin 33.1 pg (25-34) Mean Corpuscular Hemoglobin Concent 35.2 g/dl (32-36) Platelet Count 184 K/uL (130-400) Mean Platelet Volume 11.8 fL (7.4-10.4) Neutrophils (%) (Auto) 70.4 % Lymphocytes (%) (Auto) 20.1 % Monocytes (%) (Auto) 6.5 % Eosinophils (%) (Auto) 1.6 % Basophils (%) (Auto) 0.6 % Neutrophils # (Auto) 6.20 K/uL (1.4-6.5) Lymphocytes # (Auto) 1.77 K/uL (1.2-3.4) Monocytes # (Auto) 0.57 K/uL (0.11-0.59) Eosinophils # (Auto) 0.14 K/uL (0-0.5) Basophils # (Auto) 0.05 K/uL (0-0.2) RDW Standard Deviation 43.7 fL (36.4-46.3) RDW Coefficient of Variation 12.7 % (11.5-14.5) Immature Granulocyte % (Auto) 0.8 % Immature Granulocyte # (Auto) 0.07 K/uL (0.00-0.02) Prothrombin Time 10.1 SECONDS (9.0-12.0) Prothromb Time International Ratio 1.0 (0.9-1.1) Activated Partial Thromboplast Time 24.1 SECONDS (21.0-31.0) Partial Thromboplastin Ratio 0.9 Anion Gap 8.0 mmol/L (3-11) Est Creatinine Clear Calc Drug Dose 133.3 ml/min Estimated GFR () 104.1 Estimated GFR (Non- 89.9 BUN/Creatinine Ratio 12.4 (10-20) Calcium Level 8.8 mg/dl (8.5-10.1) Magnesium Level 1.8 mg/dl (1.8-2.4) Total Bilirubin 0.4 mg/dl (0.2-1) Direct Bilirubin < 0.1 mg/dl (0-0.2) Aspartate Amino Transf (AST/SGOT) 19 U/L (15-37) Alanine Aminotransferase (ALT/SGPT) 40 U/L (12-78) Alkaline Phosphatase 45 U/L (45-117) Total Creatine Kinase 119 U/L (39-308) Creatine Kinase MB 2.0 ng/ml (0.5-3.6) Creatine Kinase MB Ratio 1.7 (0-3.0) Troponin I < 0.015 ng/ml (0-0.045) Total Protein 7.2 gm/dl (6.4-8.2) Albumin 3.5 gm/dl (3.4-5.0) Lipase 206 U/L (73-393) Thyroid Stimulating Hormone (TSH) 5.030 uIu/ml (0.300-4.500) Urine Color YELLOW Urine Appearance CLEAR (CLEAR) Urine pH 5.0 (4.5-7.5) Urine Specific [place] 1.027 (1.000-1.030) Urine Protein NEG (NEG) Urine Glucose (UA) 3+ (NEG) Urine Ketones NEG (NEG) Urine Occult Blood NEG (NEG) Urine Nitrite NEG (NEG) Urine Bilirubin NEG (NEG) Urine Urobilinogen NEG (NEG) Urine Leukocyte Esterase NEG (NEG) Urine WBC (Auto) 1-5 /hpf (0-5) Urine RBC (Auto) 0-4 /hpf (0-4) Urine Hyaline Casts (Auto) 1-5 /lpf (0-5) Urine Epithelial Cells (Auto) 0-5 /lpf (0-5) Urine Bacteria (Auto) NEG (NEG) Laboratory results as stated above per my review. Medications Administered Medications (Trade) Dose Ordered Sig/Kaelyn Route Start Time Stop Time Status Last Admin Dose Admin Sodium Chloride 1,000 ml @ 999 mls/hr Q1H1M STAT IV 03/14/18 18:25 03/14/18 19:25 DC 03/14/18 18:48 999 MLS/HR ECG Per My Interpretation Indication: diaphoresis, weakness (shakiness) Rate (beats per minute): 103 Rhythm: sinus tachycardia Findings: no ectopy, other (no ST elevation) ED Course 1820: Previous medical records were reviewed. The patient was evaluated in room C02. A complete history and physical examination was performed. 1824: Administered Sodium Chloride 1000 ml @ 999 mls/hr IV. 2112: On reevaluation, the patient is resting. I discussed the results and findings with the patient. He verbalized agreement of the treatment plan. The patient was discharged home. Medical Decision Differential includes acute coronary syndrome, myocardial infarction, CVA, TIA, anemia, infection, pneumonia, UTI, pyelonephritis, poor nutrition, dehydration, electrolyte disturbance,hypoglycemia. This is a 48-year-old male who presents to the ED with a chief complaint of elevated blood pressure and diaphoresis. The patient states that he was at work. He suddenly became sweaty. Because he is a diabetic, he went [facility]. His blood pressure was elevated and his heart rate was elevated. For this reason he was sent in for evaluation. He does have a history of insulin-dependent diabetes. His blood sugar at that time was checked and was slightly elevated. The patient has no other complaints. His symptoms have resolved at this time. His physical exam was normal. His heart rate was 116 in triage. Blood pressure was 129/83. The patient CBC and complete metabolic panel were normal. Troponin was negative. TSH is normal. Urine did not show infection. Chest x-ray was negative for acute disease. The patient was told the results of the test. He is felt to be stable for discharge and outpatient follow-up. Medication Reconcilliation Current Medication List: was personally reviewed by me Blood Pressure Screening Patient's blood pressure: Normal blood pressure Impression Primary Impression: Diaphoresis Scribe Attestation The scribe's documentation has been prepared under my direction and personally reviewed by me in its entirety. I confirm that the note above accurately reflects all work, treatment, procedures, and medical decision making performed by me. Departure Information Dispostion Home / Self-Care Referrals No Doctor, Assigned (PCP) Forms HOME CARE DOCUMENTATION FORM, IMPORTANT VISIT INFORMATION, WORK / SCHOOL INSTRUCTIONS Patient Instructions My [facility] Additional Instructions Follow-up with your doctor for further care and evaluation in 1-2 days. Return to the emergency department for worsening or new symptoms or any concerns. You have been examined and treated today on an emergency basis only. This is not a substitute for, or an effort to provide, complete comprehensive medical care. It is impossible to recognize and treat all injuries or illnesses in a single emergency department visit. It is therefore important that you follow up closely with your doctor. Call as soon as possible for an appointment.
[2018-03-14 21:15] VITALS: BP 137/100; PULSE 96; TEMP 36.8; O2SAT 97
[2018-03-14] MEDS ORDERED: METF-384 PO (23:49)
== END 2018-03-14 21:22 | disposition home or self-care (01) ==
LOC: C.EDB 17:50 → C.EDC 21:22
DX: R61 Generalized hyperhidrosis (principal); E11.9 Type 2 diabetes mellitus without complications; Z79.4 Long term (current) use of insulin; Z82.49 Family history of ischemic heart disease and other diseases of the circulatory system; Z88.5 Allergy status to narcotic agent

== ENCOUNTER 2021-08-30 12:18 | Observation (INO) ==
[2021-08-30] MEDS ORDERED: SODIUM CHLORIDE 0.9% 1000ML 1,000 ML IV ONE (12:49)
--- NOTE | 2021-08-30 12:56 | Emergency Department Note ---
Impression & Plan Elevated troponin, Bronchitis, Laryngitis, Viral URI, Breath shortness ED Provider Note NAME: RUTHIE CHI AGE: 51 SEX: M : 1970 ARRIVES VIA: Walk-In INFORMANT: Patient ED PROVIDER(S): Slava Curtis DO CHIEF COMPLAINT: Cough congestion sore throat HPI: Patient is a 51-year-old male who presents to ER for upper respiratory symptoms. Symptoms started this past Saturday. He admits to cough, runny nose, and a sore throat this morning. The sore throat has resolved. He denies any loss of taste or smell. He was tested for Covid yesterday but was negative. Denies any chest pain but does admit to shortness of breath which has been worsening. He does have some belly pain but this is only presentwith coughing. No dysuria, urgency, or frequency. No fevers. He has lost his voice. ROS: See above HPI for pertinent positives & negatives. A total of 10 systems reviewed and were otherwise negative. PAST MEDICAL HISTORY:See Below PAST SURGICAL HISTORY:See Below FAMILY HISTORY:See Below SOCIAL HISTORY:See Below HOME MEDICATIONS:See Below ALLERGIES:See Below VITALS:See Below PHYSICAL EXAMINATION: GENERAL: Sitting up in bed, alert, Coughing, congestion EYE EXAM: normal conjunctiva. PERRL and EOM's grossly intact. OROPHARYNX: no exudate, no erythema, lips, buccal mucosa, and tongue normal and mucous membranes are moist NECK: supple, no nuchal rigidity, no adenopathy, non-tender LUNGS: Clear to auscultation. Normal chest wall mechanics HEART: no murmurs, S1 normal and S2 normal ABDOMEN: abdomen soft, non-tender, normo-active bowel sounds, no masses, no rebound or guarding. UPPER EXTREMITIES: upper extremities are grossly normal. LOWER EXTREMITIES: No pitting edema. NEURO EXAM: Normal sensorium, cranial nerves II-XII grossly intact, normal speech, no gross weakness of arms, no gross weakness of legs. MEDICAL DECISION MAKING: Patient is a 51-year-old male morbidly obese with a past medical history of hypertension, hyperlipidemia, Marian's thyroiditis presents the ER for upper respiratory symptoms associate with shortness of breath which has been getting worse. IV was established blood work was obtained. Labs show no significant leukocytosis or anemia. BMP along with LFTs bilirubin lipase was unremarkable. Troponin was checked was 0.24 with previous troponins negative. Influenza and Covid was negative. Patient was updated bedside. With the positive troponin CTA was performed and did show peribronchial wall thickening. Do favor that this is all viral in nature. EKG was nondiagnostic. He was updated bedside. Discussed with the hospitalist for further evaluation with the elevated troponin and upper respiratory symptoms. Nothing to suggest ACS at this time. Triage Nursing notes reviewed. Limited review of prior medical records performed Vital Signs: reviewed and remarkable for no significant abnormalities Differential diagnosis: Differential diagnoses includes but is not limited to pneumonia, bronchitis, COPD/Asthma exacerbation, pneumothorax, pulmonary embolism, congestive heart failure, acute coronary syndrome ER treatment provided: See below Diagnostics interpreted by me: ECG: Sinus rhythm rate 85 Normal axis No PVCs QTC 430 Cardiac Monitoring: An order was placed for continuous cardiac monitoring. The monitor shows a rate of 82 with sinus rhythm. Laboratory studies: As stated above and show below. Imaging studies: CT angio as discussed above Chest x-ray was clean Consultation(s): Discussed with Beau Darling who is working with Dr. Espinal from the hospital service Procedures: none Critical Care: None Past Med/Surg History Medical History Acquired nasolacrimal duct obstruction Adrenal nodule Biceps tendonitis Candidiasis Cellulitis of left lower leg Diverticulitis (08/29/12) Diverticulosis Dyslipidemia Edema Erectile dysfunction Hives Hypothyroidism Low testosterone Metabolic syndrome Mitral regurgitation Morbid obesity Nocturnal hypoxia Pleural effusion Severe obstructive sleep apnea Suspected 2019 novel coronavirus infection Type 2 diabetes mellitus, uncontrolled Vertigo Vitamin D deficiency Surgical History S/P tonsillectomy and adenoidectomy Family History Father Diabetes Myocardial infarction Stroke syndrome Other No pertinent family history Social History Smoking Status: Never smoker Tobacco Type: Smokeless Tobacco (Dip or Chew) Hx Alcohol Use: No Hx Substance Use: No Preferred Language: Pakistani Communication Ability: Effective Visual Impairment: No Limitations Hearing Ability: Normal marital status: Single Current Living Situation: Alone current occupational status: employed Feels Safe at Home: Yes Allergies Allergies Allergy/AdvReac Type Severity Reaction Status Date / Time tramadol Allergy Unknown urinary Verified 05/29/21 11:25 retention Home Meds Home Medications Medication Instructions Recorded Confirmed aspirin 81 mg tablet,delayed 81 mg PO QAM 06/04/19 08/30/21 release (Aspir-) fluticasone propionate 50 1 spray INTRANASAL BID 05/29/21 08/30/21 mcg/actuation nasal spray,suspension Previous Rx's Medication Instructions Recorded testosterone cypionate 200 mg/mL 150 mg IM .weekly #5 ml 05/27/20 intramuscular oil glimepiride 1 mg tablet (Amaryl) 1 mg PO QAM 90 Days #90 tab 08/10/20 meloxicam 7.5 mg tablet 7.5 mg PO DAILY #30 tab 10/12/20 lisinopril 5 mg tablet (Zestril) 5 mg PO QAM #90 tab 12/07/20 metformin 1,000 mg tablet 1,000 mg PO BID #180 tab 12/07/20 Basaglar LeikPen U-100 Insulin 100 30 unit SUBCUT QAM #15 ml NS 01/11/21 unit/mL (3 mL) subcutaneous (insulin glargine) sildenafil (pulm.hypertension) 20 100 mg PO ONCE PRN #30 tab 01/18/21 mg tablet tadalafil 5 mg tablet 5 mg PO DAILY #30 tab 03/22/21 levothyroxine 300 mcg tablet 300 mcg PO DAILY #90 tab 05/29/21 terbinafine HCl 250 mg tablet 250 mg PO DAILY 84 Days #84 tab 07/10/21 amoxicillin 875 mg-potassium 1 tab PO BID #14 tab 08/28/21 clavulanate 125 mg tablet (Augmentin) liraglutide 0.6 mg/0.1 mL (18 mg/3 1.8 mg SQ QAM #9 ml 08/29/21 mL) subcutaneous pen injector (Victoza 3-Sukh) Results & Data (ED) Vital Signs Vital Signs - 24 hr 08/30/21 12:27 08/30/21 14:00 Temperature 36.8 C Temperature Source Temporal Artery Scan Pulse Rate 99 H Pulse Rate [Apical] 84 Respiratory Rate 18 19 Respiratory Effort / Characteristics Non-Labored Spontaneous Respiratory Depth Normal Blood Pressure 138/89 Blood Pressure [Left Arm] 152/84 H Blood Pressure Mean 105 Blood Pressure Mean [Left Arm] 106 Pulse Oximetry 96 97 Oxygen Delivery Method Room Air Room Air Sepsis Recent Fever Within 48 Hours No Sepsis New/Unexplained Change in Mental Status N/A Sepsis Action Taken by Nursing No Action Required Laboratory Data Result diagrams: 08/30/21 12:55 08/30/21 12:55 Lab Results 08/30/21 08/30/21 08/30/21 Range/Units 12:55 12:55 12:57 WBC 7.18 (4.8-10.8) K/uL RBC 4.23 L (4.7-6.1) M/uL Hgb 13.7 L (14.0-18.0) g/dL Hct 40.5 L (42-52) % MCV 95.7 (80-100) fL MCH 32.4 (25-34) pg MCHC 33.8 (32-36) g/dL RDW Std Deviation 46.9 H (36.4-46.3) fL RDW Coeff of Netta 13.4 (11.5-14.5) % Plt Count 203 (130-400) K/uL MPV 11.2 H (7.4-10.4) fL Immature Gran % (Auto) 0.7 % Neut % (Auto) 66.7 % Lymph % (Auto) 16.0 % [place] % (Auto) 12.0 % Eos % (Auto) 4.2 % Baso % (Auto) 0.4 % Neut # (Auto) 4.79 (1.4-6.5) K/uL Lymph # (Auto) 1.15 L (1.2-3.4) K/uL [place] # (Auto) 0.86 H (0.11-0.59) K/uL Eos # (Auto) 0.30 (0-0.5) K/uL Baso # (Auto) 0.03 (0-0.2) K/uL Immature Gran # (Auto) 0.05 H (0.00-0.02) K/uL Sodium 139 (136-145) mmol/L Potassium 4.1 (3.5-5.1) mmol/L Chloride 104 (98-107) mmol/L Carbon Dioxide 28 (21-32) mmol/L Anion Gap 7 (3-11) BUN 13 (6-23) mg/dl Creatinine 0.82 (0.6-1.4) mg/dl Est Cr Clr Drug Dosing 143.4 ml/min Est GFR ( Amer) 120.3 ml/min Est GFR (Non-Af Amer) 103.8 ml/min BUN/Creatinine Ratio 15.9 (10-20) Glucose 127 H (70-99(Fasting)) mg/dl Calcium 8.8 (8.5-10.1) mg/dl Total Bilirubin 0.6 (0.2-1.0) mg/dl AST 18 (13-39) U/L ALT 21 (7-52) U/L Alkaline Phosphatase 36 (34-104) U/L Troponin I 0.24 H* (0-0.04) ng/ml Total Protein 6.6 (6.0-8.3) gm/dl Albumin 3.9 (3.4-5.0) gm/dl Globulin 2.7 (2.5-4.0) gm/dl Albumin/Globulin Ratio 1.4 (0.9-2) Lipase 33 (11-82) U/L Influ A Molecular Assay (Negative) Influ B Molecular Assay (Negative) SARS-CoV-2, RNA, NAAT NEGATIVE (NEGATIVE) 08/30/21 Range/Units 12:57 WBC (4.8-10.8) K/uL RBC (4.7-6.1) M/uL Hgb (14.0-18.0) g/dL Hct (42-52) % MCV (80-100) fL MCH (25-34) pg MCHC (32-36) g/dL RDW Std Deviation (36.4-46.3) fL RDW Coeff of Netta (11.5-14.5) % Plt Count (130-400) K/uL MPV (7.4-10.4) fL Immature Gran % (Auto) % Neut % (Auto) % Lymph % (Auto) % [place] % (Auto) % Eos % (Auto) % Baso % (Auto) % Neut # (Auto) (1.4-6.5) K/uL Lymph # (Auto) (1.2-3.4) K/uL [place] # (Auto) (0.11-0.59) K/uL Eos # (Auto) (0-0.5) K/uL Baso # (Auto) (0-0.2) K/uL Immature Gran # (Auto) (0.00-0.02) K/uL Sodium (136-145) mmol/L Potassium (3.5-5.1) mmol/L Chloride (98-107) mmol/L Carbon Dioxide (21-32) mmol/L Anion Gap (3-11) BUN (6-23) mg/dl Creatinine (0.6-1.4) mg/dl Est Cr Clr Drug Dosing ml/min Est GFR ( Amer) ml/min Est GFR (Non-Af Amer) ml/min BUN/Creatinine Ratio (10-20) Glucose (70-99(Fasting)) mg/dl Calcium (8.5-10.1) mg/dl Total Bilirubin (0.2-1.0) mg/dl AST (13-39) U/L ALT (7-52) U/L Alkaline Phosphatase (34-104) U/L Troponin I (0-0.04) ng/ml Total Protein (6.0-8.3) gm/dl Albumin (3.4-5.0) gm/dl Globulin (2.5-4.0) gm/dl Albumin/Globulin Ratio (0.9-2) Lipase (11-82) U/L Influ A Molecular Assay Negative (Negative) Influ B Molecular Assay Negative (Negative) SARS-CoV-2, RNA, NAAT (NEGATIVE) Administered Medications Discontinued Medications Sodium Chloride (Nss 1000ml) 1,000 mls @ 999 mls/hr IV .Q1H1M ONE Stop: 08/30/21 13:49 Last Admin: 08/30/21 13:35 Dose: 999 mls/hr Documented by: [id number] Ioversol (Optiray 320 125ml) 120 ml IV ONCE ONE Stop: 08/30/21 14:59 Last Admin: 08/30/21 14:54 Dose: 120 ml Documented by: [id number] Imaging Data Radiologist's Impression: Chest X-Ray 08/30/21 12:48 XR chest 1V portable HISTORY: 51 years-old Male Chest Pain acute atypical chest pain COMPARISON: Chest radiograph 09/20/2019 TECHNIQUE: Portable AP view of the chest FINDINGS: Cardiomediastinal and hilar silhouettes are within normal limits. No pneumothorax, pleural effusion, airspace consolidation or overt pulmonary edema. The bones of the chest appear grossly intact. IMPRESSION: No acute process. ACT 112: Negative or not required by law. The above report was generated using voice recognition software. It may contain grammatical, syntax or spelling errors. Electronically signed by: Yo Weaver M.D. 08/30/2021 1:22 PM Chest CTA 08/30/21 14:05 CT angio chest PE protocol CT DOSE: 957.48 mGy.cm HISTORY: 51 years-old Male with cough sob. Acute cough with shortness of breath TECHNIQUE: Multiple CTA images of the chest were obtained after the intravenous administration of 120 ml Optiray. Coronal and sagittal MIPS were obtained from the axial data set and were submitted for review. All measurements were obtained according to NASCET criteria. A dose lowering technique was utilized adhering to the principles of ALARA. COMPARISON: Chest radiograph of same day, CTA chest 02/22/2014 FINDINGS: CTA: The heart is normal in size. No thoracic aortic aneurysm. Patency of the imaged great vessels. Unremarkable pulmonary artery. Defects identified to suggest thromboembolic disease. The segmental and subsegmental branches are not well opacified and therefore are difficult to evaluate. CT CHEST: No thyroid nodule or adenopathy. No pneumothorax, pleural effusion, overt pulmonary edema or airspace consolidation typical for pneumonia. Mild bibasilar groundglass densities. Mild bilateral bronchial wall thickening. There are no suspicious pulmonary nodules or masses. The central airways are patent. Mild nonspecific distal esophageal wall. Hepatic steatosis. Unremarkable soft tissues. No acute fracture or suspicious bone lesion. Bifid left third rib. IMPRESSION: 1. No pulmonary emboli. 2. Mild bilateral bronchial wall thickening suggestive of bronchitis or reactive airway disease. 3. No adenopathy or airspace consolidation typical for pneumonia. 4. Hepatic steatosis. ACT 112: Negative or not required by law. The above report was generated using voice recognition software. It may contain grammatical, syntax or spelling errors. Electronically signed by: Yo Weaver M.D. 08/30/2021 3:11 PM Discharge Plan Visit Data Chief Complaint: Sore Throat Stated Complaint: COUGH, SORE THROAT ED Provider: Slava Curtis Discharge Problem: Elevated troponin, Bronchitis, Laryngitis, Viral URI, Breath shortness Forms Stand Alone Forms: [id number] Prescriptions Prescriptions: No Action glimepiride [Amaryl] 1 mg tablet 1 mg PO QAM 90 Days Qty: 90 RF: 3 Basaglar KwikPen U-100 Insulin 100 unit/mL (3 mL) insulin pen 30 unit SUBCUT QAM Qty: 15 RF: 5 sildenafil (pulm.hypertension) 20 mg tablet 100 mg PO ONCE PRN (Reason: sexual activity) Qty: 30 RF: 5 levothyroxine 300 mcg tablet 300 mcg PO DAILY Qty: 90 RF: 3 terbinafine HCl 250 mg tablet 250 mg PO DAILY 84 Days Qty: 84 RF: 0 Victoza 3-Sukh 0.6 mg/0.1 mL (18 mg/3 mL) pen injector 1.8 mg SQ QAM Qty: 9 RF: 1 fluticasone propionate 50 mcg/actuation spray,suspension 1 spray intranasal BID RF: 0 amoxicillin-pot clavulanate [Augmentin] 875-125 mg tablet 1 tab PO BID Qty: 14 RF: 0 testosterone cypionate 200 mg/mL oil 150 mg IM .weekly Qty: 5 RF: 5 meloxicam 7.5 mg tablet 7.5 mg PO DAILY Qty: 30 RF: 1 lisinopril [Zestril] 5 mg tablet 5 mg PO QAM Qty: 90 RF: 3 metformin 1,000 mg tablet 1,000 mg PO BID Qty: 180 RF: 3 tadalafil 5 mg tablet 5 mg PO DAILY Qty: 30 RF: 11 aspirin [Aspir-81] 81 mg Tablet,Delayed Release (Dr/Ec) 81 mg PO QAM RF: 0 Referrals Referrals: Marcial Peter MD [Primary Care Provider] -
[2021-08-30 13:23] LABS: Basophils # (auto) 0.03 K/uL (0-0.2); Basophils % (auto) 0.4 %; Eosinophils % (auto) 4.2 %; Hematocrit (blood only) 40.5 % (42-52); Hemoglobin 13.7 g/dL (14.0-18.0); Immature Granulocytes # (auto) 0.05 K/uL (0.00-0.02); Immature Granulocytes % (auto) 0.7 %; Lymphocytes # (auto) 1.15 K/uL (1.2-3.4); Mean Corpuscular Hemoglobin 32.4 pg (25-34); Mean Corpuscular Hgb Conc 33.8 g/dL (32-36); Mean Corpuscular Volume 95.7 fL (80-100); Mean Platelet Volume 11.2 fL (7.4-10.4); Monocytes # (auto) 0.86 K/uL (0.11-0.59); Neutrophils # (auto) 4.79 K/uL (1.4-6.5); Neutrophils % (auto) 66.7 %; Platelet Count 203 K/uL (130-400); RDW Coefficient of Variation 13.4 % (11.5-14.5); RDW Standard Deviation 46.9 fL (36.4-46.3); Red Blood Count 4.23 M/uL (4.7-6.1); White Blood Count 7.18 K/uL (4.8-10.8)
--- NOTE | 2021-08-30 13:23 | XRay Report ---
XR chest 1V portable HISTORY: 51 years-old Male Chest Pain acute atypical chest pain COMPARISON: Chest radiograph 09/20/2019 TECHNIQUE: Portable AP view of the chest FINDINGS: Cardiomediastinal and hilar silhouettes are within normal limits. No pneumothorax, pleural effusion, airspace consolidation or overt pulmonary edema. The bones of the chest appear grossly intact. IMPRESSION: No acute process. ACT 112: Negative or not required by law. The above report was generated using voice recognition software. It may contain grammatical, syntax o r spelling errors. Electronically signed by: Yo Weaver M.D. 08/30/2021 1:22 PM
[2021-08-30 13:52] LABS: Albumin Globulin Ratio 1.4 (0.9-2); Albumin Level 3.9 gm/dl (3.4-5.0); BUN Creatinine Ratio 15.9 (10-20); Bilirubin,Total 0.6 mg/dl (0.2-1.0); Calcium 8.8 mg/dl (8.5-10.1); Creatinine Clr Calc Pharmacy 143.4 ml/min; Est GFR (African American) 120.3 ml/min; Est GFR (Non-African American) 103.8 ml/min; Globulin 2.7 gm/dl (2.5-4.0); Potassium 4.1 mmol/L (3.5-5.1); Total Protein 6.6 gm/dl (6.0-8.3)
[2021-08-30 14:01] LABS: Influenza A virus by PCR Negative (Negative); Influenza B virus by PCR Negative (Negative)
[2021-08-30 14:03] LABS: Troponin I 0.24 ng/ml (0-0.04)
[2021-08-30] MEDS ORDERED: OPTIRAY 320 125ml IV ONE (14:58)
--- NOTE | 2021-08-30 15:12 | CT Scan Report ---
CT angio chest PE protocol CT DOSE: 957.48 mGy.cm HISTORY: 51 years-old Male with cough sob. Acute cough with shortness of breath TECHNIQUE: Multiple CTA images of the chest were obtained after the intravenous administration of 120 ml Optiray. Coronal and sagittal MIPS were obtained from the axial data set and were submitted for review. All measurements were obtained according to NASCET criteria. A dose lowering technique was u tilized adhering to the principles of ALARA. COMPARISON: Chest radiograph of same day, CTA chest 02/22/2014 FINDINGS: CTA: The heart is normal in size. No thoracic aortic aneurysm. Patency of the imaged great vessels. Unrema rkable pulmonary artery. Defects identified to suggest thromboembolic disease. The segmental and subs egmental branches are not well opacified and therefore are difficult to evaluate. CT CHEST: No thyroid nodule or adenopathy. No pneumothorax, pleural effusion, overt pulmonary edema or airspace consolidation typical for pneumonia. Mild bibasilar groundglass densities. Mild bilateral bronchial wall thickening. There are no suspicious pulmonary nodules or masses. The central airways are patent. Mild nonspecific distal esophageal wall. Hepatic steatosis. Unremarkable soft tissues. No acute fract ure or suspicious bone lesion. Bifid left third rib. IMPRESSION: 1. No pulmonary emboli. 2. Mild bilateral bronchial wall thickening suggestive of bronchitis or reactive airway disease. 3. No adenopathy or airspace consolidation typical for pneumonia. 4. Hepatic steatosis. ACT 112: Negative or not required by law. The above report was generated using voice recognition software. It may contain grammatical, syntax o r spelling errors. Electronically signed by: Yo Weaver M.D. 08/30/2021 3:11 PM
[2021-08-30] MEDS ORDERED: ASPIRIN CHEW 324 MG PO STA (16:07)
--- NOTE | 2021-08-30 16:10 | Electrocardiogram Report ---
Test Reason : Blood Pressure : / mmHG Vent. Rate : 089 BPM Atrial Rate : 089 BPM P-R Int : 164 ms QRS Dur : 090 ms QT Int : 354 ms P-R-T Axes : 066 032 029 degrees QTc Int : 430 ms Normal sinus rhythm Poor R wave progression, consider anterior LA vs. lead placement vs. LVH Abnormal ECG When compared with ECG of 20-SEP-2019 16:40, No significant change was found Confirmed by Jesse Tena ([id number]) on 08/30/2021 4:09:30 PM Referred By: Confirmed By:Jesse Tena
--- NOTE | 2021-08-30 16:28 | History & Physical Report ---
Date of Service August 30, 2021 Assessment & Plan (1) Elevated troponin: Plan: Patient presented with upper respiratory infection type symptoms. Incidental finding of elevated troponin 0 0.024. Patient's previous troponin involving less than 0.015. Patient denies any chest pain or tightness Blood pressure is relatively controlled Heart rate is in the 80s Will admit patient for observation and repeat troponin levels that 2100 tonight and again with a.m. labs Monitor on telemetry Most likely etiology is troponin leak from coughing from upper respiratory illness (2) Bronchitis: Plan: Patient seen with telemetry with video phone call by outpatient office and started on Augmentin At this time, patient has no evidence of sinus infection. Most likely he has a cold Patient is negative for Covid as well as influenza a and B Will order Afrin 1 spray each nostril every 8 hours times a total of 3 doses and stop We will also check procalcitonin. If negative will not prescribe any antibiotics at this time. Continue with good oral intake of fluids Supportive care (3) Viral URI: Plan: Serology negative for Covid, influenza A, influenza B Continue treatment as above (4) Mixed hyperlipidemia: Plan: Morbidly obese with BMI of 43.6 kg/m from excess caloric intake Currently not on any statins Will defer to outpatient management with primary care office (5) Erectile dysfunction: Plan: Patient previously on sildenafil. He reports that this did not work. Patient then changed to tadalafil 5 mg p.o. daily Hold outpatient medication while in inpatient (6) Hypertension: Plan: Morbidly obese with a BMI of 43.6 kg/m secondary to excess caloric intake Continue usual home medications including lisinopril Follow on telemetry secondary to elevated troponin (7) Type 2 diabetes mellitus, uncontrolled: Plan: Most recent hemoglobin A1c was 7% Hold all oral agents and continue with sliding scale insulin (8) Severe obstructive sleep apnea: Plan: Patient uses CPAP at home with a setting of 13 cm of water Will order CPAP while inpatient to be used at night and as needed Also wrote order the patient can use his own CPAP machine if his brings it in. (9) Low testosterone: Plan: Will hold patient's weekly IM injection of testosterone while inpatient (10) DVT (deep venous thrombosis): Plan: Subcutaneous heparin every 8 hours while inpatient History of Present Illness Chief Complaint: Upper respiratory symptoms Primary Care Provider: Marcial Peter MD Attending: Dr. Espinal This is a 51-year-old male with a past medical history of morbid obesity with BMI of 43.6 kg/m, upper respiratory symptoms, onychomycosis, mixed hyperlipidemia, metabolic syndrome, low testosterone, erectile dysfunction, vitamin D deficiency, Marian's thyroiditis, fatty infiltration of liver, hypertension, hypothyroidism, and mitral regurgitation. Patient reports that he has had upper respiratory symptoms for approximate last 2 weeks. He had a telehealth visit with his primary care office and they prescribed Augmentin. His respiratory symptoms continue to worsen. He came to the emergency department because he could not afford the co-pay at an urgent care. The patient has no leukocytosis. He is afebrile. He is not hypoxic. He does complain of upper airway congestion. Routine testing revealed a troponin that was slightly elevated at 0.024. Previous troponins reviewed and were all less than 0.015. At this point the patient states that he has significant cough but no specific chest pain or tightness. He has no focal pain. He does have a productive cough with some whitish type sputum. Patient is negative for COVID- 19 x2 as well as negative for influenza a and B. Patient is current saturation is 97% on room air. Patient is a type II diabetic and currently is on long-term insulin as well as oral agents. Most recent hemoglobin A1c is 7%. Patient does admit to smokeless tobacco use on a regular basis. He denies any cigarette usage. 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 Patient did receive COVID-19 vaccination with Moderna 11/17/2020 Allergies Allergy/AdvReac Type Severity Reaction Status Date / Time tramadol Allergy Unknown urinary Verified 05/29/21 11:25 retention Home Medications Medication Instructions Recorded Confirmed Type aspirin 81 mg tablet,delayed 81 mg PO QAM 06/04/19 08/30/21 History release (Aspir-) testosterone cypionate 200 mg/mL 150 mg IM .weekly #5 ml 05/27/20 08/30/21 Rx intramuscular oil glimepiride 1 mg tablet (Amaryl) 1 mg PO QAM 90 Days #90 tab 08/10/20 08/30/21 Rx meloxicam 7.5 mg tablet 7.5 mg PO DAILY #30 tab 10/12/20 08/30/21 Rx lisinopril 5 mg tablet (Zestril) 5 mg PO QAM #90 tab 12/07/20 08/30/21 Rx metformin 1,000 mg tablet 1,000 mg PO BID #180 tab 12/07/20 08/30/21 Rx Basaglar CecePen U-100 Insulin 100 30 unit SUBCUT QAM #15 ml NS 01/11/21 08/30/21 Rx unit/mL (3 mL) subcutaneous (insulin glargine) sildenafil (pulm.hypertension) 20 100 mg PO ONCE PRN #30 tab 01/18/21 08/30/21 Rx mg tablet tadalafil 5 mg tablet 5 mg PO DAILY #30 tab 03/22/21 08/30/21 Rx fluticasone propionate 50 1 spray INTRANASAL BID 05/29/21 08/30/21 History mcg/actuation nasal spray,suspension levothyroxine 300 mcg tablet 300 mcg PO DAILY #90 tab 05/29/21 08/30/21 Rx terbinafine HCl 250 mg tablet 250 mg PO DAILY 84 Days #84 tab 07/10/21 08/30/21 Rx amoxicillin 875 mg-potassium 1 tab PO BID #14 tab 08/28/21 08/30/21 Rx clavulanate 125 mg tablet (Augmentin) liraglutide 0.6 mg/0.1 mL (18 mg/3 1.8 mg SQ QAM #9 ml 08/29/21 08/30/21 Rx mL) subcutaneous pen injector (Victoza 3-Sukh) Past Med/Surg History Medical History Acquired nasolacrimal duct obstruction Adrenal nodule Biceps tendonitis Candidiasis Cellulitis of left lower leg Diverticulitis (08/29/12) Diverticulosis Dyslipidemia Edema Erectile dysfunction Hives Hypothyroidism Low testosterone Metabolic syndrome Mitral regurgitation Morbid obesity Nocturnal hypoxia Pleural effusion Severe obstructive sleep apnea Suspected 2019 novel coronavirus infection Type 2 diabetes mellitus, uncontrolled Vertigo Vitamin D deficiency Surgical History S/P tonsillectomy and adenoidectomy Family History Father Diabetes Myocardial infarction Stroke syndrome Other No pertinent family history Social History Smoking Status: Never smoker Tobacco Type: Smokeless Tobacco (Dip or Chew) Hx Alcohol Use: No Hx Substance Use: No Preferred Language: Mongolian Communication Ability: Effective Visual Impairment: No Limitations Hearing Ability: Normal marital status: Single Current Living Situation: Alone current occupational status: employed Feels Safe at Home: Yes Review of Systems Review of Systems: All systems reviewed & are unremarkable except as noted in Subjective Physical Exam Physical Exam: GENERAL : No acute distress. Sounds congested. Morbidly obese EYES: No icterus, gaze conjugate. Pupils equal round and reactive to light NOSE: No evidence of epistaxis MOUTH: No lesions or candidiasis. Tongue midline NECK: Supple LUNGS: Lungs are clear to auscultation bilaterally. No bronchospasm rales or rhonchi appreciated. Patient does have cough with deep inspiration. HEART: Regular, rate controlled in the 80s ABDOMEN: Soft, NT, ND, BS Present EXTREMITIES: Trace LE edema, pedal pulses intact NEURO: A&OX3 Results & Data Results & Data ([facility]) Vital Signs (Past 12 Hours) Vital Signs Temp Pulse Pulse Resp BP BP Pulse Ox 08/30/21 15:30 87 25 H 97 08/30/21 15:00 96 H 21 99 08/30/21 14:30 82 20 148/91 H 97 08/30/21 14:00 81 84 19 152/84 H 152/84 H 97 08/30/21 13:30 91 H 16 135/86 96 08/30/21 13:15 90 27 H 97 08/30/21 12:27 36.8 C 99 H 18 138/89 96 Laboratory Results 08/30/21 12:55 08/30/21 12:55 Diagnostic Findings Chest X-Ray 08/30/21 12:48 XR chest 1V portable HISTORY: 51 years-old Male Chest Pain acute atypical chest pain COMPARISON: Chest radiograph 09/20/2019 TECHNIQUE: Portable AP view of the chest FINDINGS: Cardiomediastinal and hilar silhouettes are within normal limits. No pneumothorax, pleural effusion, airspace consolidation or overt pulmonary edema. The bones of the chest appear grossly intact. IMPRESSION: No acute process. ACT 112: Negative or not required by law. The above report was generated using voice recognition software. It may contain grammatical, syntax or spelling errors. Electronically signed by: Yo Weaver M.D. 08/30/2021 1:22 PM Chest CTA 08/30/21 14:05 CT angio chest PE protocol CT DOSE: 957.48 mGy.cm HISTORY: 51 years-old Male with cough sob. Acute cough with shortness of breath TECHNIQUE: Multiple CTA images of the chest were obtained after the intravenous administration of 120 ml Optiray. Coronal and sagittal MIPS were obtained from the axial data set and were submitted for review. All measurements were obtained according to NASCET criteria. A dose lowering technique was utilized adhering to the principles of ALARA. COMPARISON: Chest radiograph of same day, CTA chest 02/22/2014 FINDINGS: CTA: The heart is normal in size. No thoracic aortic aneurysm. Patency of the imaged great vessels. Unremarkable pulmonary artery. Defects identified to suggest thromboembolic disease. The segmental and subsegmental branches are not well opacified and therefore are difficult to evaluate. CT CHEST: No thyroid nodule or adenopathy. No pneumothorax, pleural effusion, overt pulmonary edema or airspace consolidation typical for pneumonia. Mild bibasilar groundglass densities. Mild bilateral bronchial wall thickening. There are no suspicious pulmonary nodules or masses. The central airways are patent. Mild nonspecific distal esophageal wall. Hepatic steatosis. Unremarkable soft tissues. No acute fracture or suspicious bone lesion. Bifid left third rib. IMPRESSION: 1. No pulmonary emboli. 2. Mild bilateral bronchial wall thickening suggestive of bronchitis or reactive airway disease. 3. No adenopathy or airspace consolidation typical for pneumonia. 4. Hepatic steatosis. ACT 112: Negative or not required by law. The above report was generated using voice recognition software. It may contain grammatical, syntax or spelling errors. Electronically signed by: Yo Weaver M.D. 08/30/2021 3:11 PM ECG Additional Comments: Vent. rate 89 BPM CA interval 164 ms QRS duration 90 ms QT/QTc 354/430 ms P-R-T axes 66 32 29 Normal sinus rhythm Poor R wave progression, consider anterior CT vs. lead placement vs. LVH Abnormal ECG When compared with ECG of 20-SEP-2019 16:40, No significant change was found Confirmed by Jesse Tena ([id number]) on 08/30/2021 4:09:30 PM Code Status & VTE Plan Code Status Level I full resuscitation VTE Prophylaxis Plan VTE Prophylaxis will be ordered: Yes Supervising Physician Co-Signing Physician Notes Discussed case with PA, reviewed documentation. Patient had ongoing upper respiratory infection, came to the emergency room was found to have mildly elevated troponins. Here for cardiac work-up, will trend cardiac enzymes. Continue medications as noted above. PG Care Time/CCT Total # of Minutes Spent Total Time Spent with Patient: Total time spent is greater than 50% in coordination of care (as documented) at patient's floor/unit and/or counseling patient: 60 minutes Coding Level of Care Code 99014 Initial Inpt Care Lvl 3 Diagnoses Elevated troponin R77.8 Bronchitis J40 Viral URI J06.9 Mixed hyperlipidemia E78.2 Erectile dysfunction N52.9 Hypertension I10 Type 2 diabetes mellitus, uncontrolled E11.65 Severe obstructive sleep apnea G47.33 Low testosterone R79.89 DVT (deep venous thrombosis) I82.409 Time Spent (min) 60
[2021-08-30] MEDS ORDERED: DEXTROSE 50% 50 ML SYRINGE IV PRN (19:58)
[2021-08-30] MEDS ORDERED: GLUCOSE 40% GEL 15 GM TUBE PO PRN (19:58)
[2021-08-30] MEDS ORDERED: GLUCAGON FOR INJ 1 MG VIAL SQ PRN (19:58)
[2021-08-30] MEDS ORDERED: NITROGLYCERIN SL 0.4 MG/TAB TAB SL PRN (19:58)
[2021-08-30] MEDS ORDERED: GLUCOSE 10 TABS/TUBE PO PRN (19:58)
[2021-08-30] MEDS ORDERED: CARBOHYDRATES FOR HYPOGLYCEMIA PO PRN (19:58)
[2021-08-30] MEDS ORDERED: ONDANSETRON INJ 2 MG/ML 2 ML VIAL IV PRN (19:58)
[2021-08-30] MEDS: OXYMETAZOLINE 0.05% 30 ML BTL NAE SCH (20:50)
[2021-08-30] MEDS: FLUTICASONE PROPIONATE NA SPR 16 GM BTL NAE SCH (20:50)
[2021-08-30] MEDS: INSULIN ASPART PER UNIT SC SCH (20:58)
[2021-08-31] MEDS ORDERED: FLUARIX QUADRIVALENT 0.5 ML SYR IM ONE (05:46)
[2021-08-31] MEDS: OXYMETAZOLINE 0.05% 30 ML BTL NAE SCH (06:23)
[2021-08-31] MEDS ORDERED: LEVOTHYROXINE SODIUM 150 MCG TABLET PO SCH (06:30)
[2021-08-31 06:42] LABS: Basophils # (auto) 0.03 K/uL (0-0.2); Basophils % (auto) 0.4 %; Eosinophils # (auto) 0.35 K/uL (0-0.5); Eosinophils % (auto) 4.9 %; Hematocrit (blood only) 39.7 % (42-52); Hemoglobin 13.4 g/dL (14.0-18.0); Immature Granulocytes # (auto) 0.05 K/uL (0.00-0.02); Immature Granulocytes % (auto) 0.7 %; Lymphocytes # (auto) 1.39 K/uL (1.2-3.4); Lymphocytes % (auto) 19.6 %; Mean Corpuscular Hemoglobin 32.4 pg (25-34); Mean Corpuscular Hgb Conc 33.8 g/dL (32-36); Mean Corpuscular Volume 96.1 fL (80-100); Mean Platelet Volume 11.2 fL (7.4-10.4); Monocytes # (auto) 0.83 K/uL (0.11-0.59); Monocytes % (auto) 11.7 %; Neutrophils # (auto) 4.44 K/uL (1.4-6.5); Neutrophils % (auto) 62.7 %; Platelet Count 204 K/uL (130-400); RDW Coefficient of Variation 13.5 % (11.5-14.5); RDW Standard Deviation 47.4 fL (36.4-46.3); Red Blood Count 4.13 M/uL (4.7-6.1); White Blood Count 7.09 K/uL (4.8-10.8)
[2021-08-31 06:49] LABS: BUN Creatinine Ratio 15.3 (10-20); Calcium 8.5 mg/dl (8.5-10.1); Creatinine Clr Calc Pharmacy 140.4 ml/min; Est GFR (African American) 118.6 ml/min; Est GFR (Non-African American) 102.3 ml/min
[2021-08-31] MEDS: FLUTICASONE PROPIONATE NA SPR 16 GM BTL NAE SCH (08:53)
[2021-08-31] MEDS: INSULIN ASPART PER UNIT SC SCH ×2 (09:00→13:01)
[2021-08-31] MEDS ORDERED: INSULIN GLARGINE SOLOSTAR 100 UNITS/ML 3 ML PEN SQ SCH (09:00)
[2021-08-31] MEDS ORDERED: ASPIRIN 81 MG ECTAB PO SCH (09:00)
[2021-08-31] MEDS ORDERED: TERBINAFINE PO SCH (09:00)
[2021-08-31] MEDS ORDERED: lisinopril 5 MG TAB PO SCH (09:00)
--- NOTE | 2021-08-31 13:30 | Discharge Summary ---
Date of Service August 31, 2021 Admission HPI Per Admitting Provider Attending: Dr. Espinal This is a 51-year-old male with a past medical history of morbid obesity with BMI of 43.6 kg/m, upper respiratory symptoms, onychomycosis, mixed hyperlipidemia, metabolic syndrome, low testosterone, erectile dysfunction, vitamin D deficiency, Marian's thyroiditis, fatty infiltration of liver, hypertension, hypothyroidism, and mitral regurgitation. Patient reports that he has had upper respiratory symptoms for approximate last 2 weeks. He had a telehealth visit with his primary care office and they prescribed Augmentin. His respiratory symptoms continue to worsen. He came to the emergency department because he could not afford the co-pay at an urgent care. The patient has no leukocytosis. He is afebrile. He is not hypoxic. He does complain of upper airway congestion. Routine testing revealed a troponin that was slightly elevated at 0.024. Previous troponins reviewed and were all less than 0.015. At this point the patient states that he has significant cough but no specific chest pain or tightness. He has no focal pain. He does have a productive cough with some whitish type sputum. Patient is negative for COVID- 19 x2 as well as negative for influenza a and B. Patient is current saturation is 97% on room air. Patient is a type II diabetic and currently is on long-term insulin as well as oral agents. Most recent hemoglobin A1c is 7%. Patient does admit to smokeless tobacco use on a regular basis. He denies any cigarette usage. 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 Patient did receive COVID-19 vaccination with Moderna 11/17/2020 Principal Diagnosis Viral URI Troponin leak Discharge Exam General: A&Ox3. NAD. Cooperative. HEENT: Atraumatic, normocephalic. Vision and hearing grossly intact. Mild sinus congestion without tenderness to percussion Pulm: CTAB A&P. -wheezes, -rales, -rhonchi. Symmetrical chest rise. No increase in work of breathing. No respiratory distress. Cardiac: RRR, -mrg. Radial pulses intact and symmetrical. Abdominal: Nontender, nondistended, soft. BS present. Discharge Data Allergies Allergy/AdvReac Type Severity Reaction Status Date / Time tramadol Allergy Unknown urinary Verified 05/29/21 11:25 retention Consultations 08/30/21 15:33 ED Decision to Admit Stat Ordered Studies 08/30/21 14:05 CT angio chest PE protocol Stat Hospital Course (1) Viral URI: Corby is a 51-year-old male who presented to the emergency department and reported less than 1 week of respiratory symptoms including some cough, clear sputum production, and rhinosinusitis. Covid/flu/flu B was negative. Was noted to have a troponin leak during admission, no bacterial pneumonia was appreciated, was discharged to follow-up with PCP. To do as outpatient: 1. Routine follow-up with PCP in 1-2 weeks. 2. Consider outpatient cardiac stress test as patient had a troponin leak to 0.24 which normalized on recheck, suspected demand ischemia 3. Continue antihypertensives, outpatient blood pressure recheck 4. Supportive care for viral URI, pro-Omar negative, no signs of bacterial pneumonia during admission. Procalcitonin was negative during admission 5. Follow-up on A1c recheck, pending at discharge although patient with good glycemic control fasting 132 during admission. Follow-up lipid panel since statin if indicated. Last LDL 80s Viral URI -Serology negative for Covid, influenza A, influenza B CTA: No PE, mild bronchial wall thickening suggestive of bronchitis/RAD, no airspace consolidation consistent with pneumonia, hepatic steatosis Flonase as needed for sinus congestion Patient had gotten relief with Afrin, discussed potential for rebound congestion Procalcitonin negative No leukocytosis Afebrile Less than 1 week of symptoms Had outpatient Augmentin which did not help, did not continue this on discharge (2) Elevated troponin: -Patient presented with upper respiratory infection type symptoms. - Troponin leak to 0.24 which normalized on recheck - Patient denies any chest pain or tightness - Blood pressure is relatively controlled - Heart rate is in the 80s --Medical optimization and outpatient stress test as above. EKG did not show any acute ST changes, patient without chest pain and did not show any signs of ACS at dc (3) Bronchitis: Suspected on admission, management as above with viral URI (4) Mixed hyperlipidemia: BMI 44.7 Last cholesterol with LDL 81, has not been checked recently Patient recommended to follow-up with outpatient for repeat lipid profile and statin therapy if indicated (5) Erectile dysfunction: No medication indicated during admission (6) Hypertension: Morbidly obese with a BMI of 43.6 kg/m secondary to excess caloric intake Continue usual home medications including lisinopril Follow on telemetry secondary to elevated troponin (7) Type 2 diabetes mellitus, uncontrolled: Most recent A1c 7% Patient with reasonable glycemic control on SSI insulin during admission Discharged to continue home antiglycemic's with follow-up to PCP for repeat check A1c repeat was pending at discharge (8) Severe obstructive sleep apnea: CPAP nightly was used while admitted (9) Low testosterone: Patient gets weekly IM injection of testosterone, this was not even during time of observation (10) DVT (deep venous thrombosis): Subcutaneous heparin every 8 hours while inpatient. There were no signs of DVT Total Time Total Time Spent Total Time Spent (In Minutes): Time spend day of discharge 35 minutes including direct patient care, documentation, review of labs and images, and coordination of care. Discharge Plan Discharge Items Patient Disposition: Home - Self-Care Reason For Visit: ELEVATED TROP Discharge Diagnosis: Viral URI Elevated troponin Activity: Per Instructions section Non-emergency contact: Primary Care Provider Call non-emergency contact if: you have any medication questions, your symptoms worsen, your pain is not controlled and your pain is concerning for you Follow-up/Referrals: Jazmyne Finney PA-C [Physician [employer]] - 09/07/21 11:00 am (Jazmyne Finney on Aug at 11:00am) Diet: Heart Healthy Addtl Attending Provider Instructions: You are seen in the hospital for a viral upper respiratory infection. Your Covid test and flu test was negative. You did not show any evidence of bacterial pneumonia, and a marker for bacterial pneumonia called procalcitonin was negative. Your symptoms and evaluation were consistent with a viral URI, for which antibiotics do not help. You may have symptoms for up to 2 weeks. Cough may continue for up to 4 weeks. If you have new or worsening symptoms, or your cough persists for more than 4 weeks, please see your primary care physician for additional follow-up. During mission your heart markers, troponin, were slightly elevated to 0.24. On recheck these had returned to normal/undetectable. Your EKG did not show any signs of a heart attack. This likely reflects underlying chronic coronary artery disease. He should have follow-up as an outpatient, and would likely benefit from a stress test. Please discuss a stress test with your primary care physician at your follow-up appointment. If you develop any new or worsening symptoms, including chest pain, please seek prompt medical reevaluation. Antibiotics were not recommended at discharge, you have not been prescribed with any additional antibiotics. Your congestion may be improved with Flonase [id number] nasal spray twice daily. You did feel better after using Afrin, please note that while Afrin can help you feel better it also can produce rebound worsened congestion and headache. A followup appointment has been scheduled for you on Jazmyne Finney on Aug at 11:00am. You should be seen seen within 2 weeks. You should receive a call to confirm this appointment. If you do not receive a call within 48 hours to confirm this appointment, or need to change this appointment, please call the provider's office at the number above. If you develop any new or worsening symptoms including fever, chills, sweats, chest pain, chest pressure, difficulty breathing, uncontrolled nausea/vomiting, rash, wheezing, passing out or nearly passing out, bleeding, black/bloody bowel movements, or other new or concerning symptoms please call your primary care physician, or call 911 for re-evaluation in the emergency department if you are very concerned. Pending Studies at Discharge: No Stand-Alone Forms: My [facility] Check I'm Here, Work/School Release, Smoking Cessation Medications and DC Order Prescriptions: Continued glimepiride [Amaryl] 1 mg tablet 1 mg PO QAM 90 Days Qty: 90 RF: 3 Basaglar KwikPen U-100 Insulin 100 unit/mL (3 mL) insulin pen 30 unit SUBCUT QAM Qty: 15 RF: 5 sildenafil (pulm.hypertension) 20 mg tablet 100 mg PO ONCE PRN (Reason: sexual activity) Qty: 30 RF: 5 levothyroxine 300 mcg tablet 300 mcg PO DAILY Qty: 90 RF: 3 terbinafine HCl 250 mg tablet 250 mg PO DAILY 84 Days Qty: 84 RF: 0 Victoza 3-Sukh 0.6 mg/0.1 mL (18 mg/3 mL) pen injector 1.8 mg SQ QAM Qty: 9 RF: 1 fluticasone propionate 50 mcg/actuation spray,suspension 1 spray intranasal BID RF: 0 testosterone cypionate 200 mg/mL oil 150 mg IM .weekly Qty: 5 RF: 5 meloxicam 7.5 mg tablet 7.5 mg PO DAILY Qty: 30 RF: 1 lisinopril [Zestril] 5 mg tablet 5 mg PO QAM Qty: 90 RF: 3 metformin 1,000 mg tablet 1,000 mg PO BID Qty: 180 RF: 3 tadalafil 5 mg tablet 5 mg PO DAILY Qty: 30 RF: 11 aspirin [Aspir-81] 81 mg Tablet,Delayed Release (Dr/Ec) 81 mg PO QAM RF: 0 Discontinued amoxicillin-pot clavulanate [Augmentin] 875-125 mg tablet 1 tab PO BID Qty: 14 RF: 0 Discharge Orders: Discharge Order (Routine); Ordered 08/31/21 Ordered By: Satish Wilburn Admission Data Admit Date/Time: 08/30/21 16:12 Attending Provider: Satish Wilburn Admit Provider: William Espinal Primary Care Provider: Marcial Peter Other Providers: William Espinal Other Interventions: Discharge Summary Assessment (RN) Last Done: 08/31/21 12:19 Coding Level of Care Code D/C DAY MANAGEMENT >30 MINS Diagnoses Elevated troponin R77.8 Bronchitis J40 Viral URI J06.9 Mixed hyperlipidemia E78.2 Erectile dysfunction N52.9 Hypertension I10 Type 2 diabetes mellitus, uncontrolled E11.65 Severe obstructive sleep apnea G47.33 Low testosterone R79.89 DVT (deep venous thrombosis) I82.409
--- NOTE | 2021-08-31 22:33 | Electrocardiogram Report ---
Test Reason : Blood Pressure : / mmHG Vent. Rate : 075 BPM Atrial Rate : 075 BPM P-R Int : 184 ms QRS Dur : 080 ms QT Int : 386 ms P-R-T Axes : 066 060 025 degrees QTc Int : 431 ms Sinus rhythm with Premature supraventricular complexes Otherwise normal ECG When compared with ECG of 30-AUG-2021 13:01, Premature supraventricular complexes are now Present Minimal criteria for Anterior infarct are no longer Present T wave amplitude has increased in Anterior leads Confirmed by Kana Colorado ([id number]) on 08/31/2021 10:33:06 PM Referred By: REFERRED SELF Confirmed By:Kana Colorado
[2021-09-01 04:36] LABS: EAG mmol/L 7.1 mmol/L; HA1C 6.1 (<5.7)
== END 2021-08-31 13:55 | disposition home or self-care (01) ==
LOC: EDINP 12:18 → ED 12:18 → SUATTDRO 16:12

== ENCOUNTER 2024-04-23 05:46 | Inpatient (IN) ==
--- NOTE | 2024-01-23 08:39 | PAT Medication Instructions ---
Medication Instructions Date of Service January 23, 2024 Home Medications Medication Instructions Recorded pen needle, diabetic 32 gauge x #300 ea 11/15/21/" (BD Ultra-Fine Micro Pen Needle) levothyroxine 300 mcg tablet 300 mcg PO QPM #90 tabs 06/15/22 atorvastatin 40 mg tablet 40 mg PO QPM #90 tabs 03/22/23 tirzepatide 5 mg/0.5 mL 5 mg (0.5 mL) subcut WK #2 mL 12/05/23 subcutaneous pen injector levothyroxine 300 mcg tablet 300 mcg PO QPM atorvastatin 40 mg tablet 40 mg PO QPM insulin glargine 100 unit/mL (3 mL) subcutaneous pen (Lantus Solostar U-100 Insulin) 35 unit subcut QAM lisinopril 40 mg tablet 40 mg PO QAM celecoxib 100 mg capsule (Celebrex) 100 mg PO BID PRN cholecalciferol (vitamin D3) 1,250 mcg (50,000 unit) capsule 50,000 unit PO WK glimepiride 1 mg tablet 1 mg PO QPM tadalafil 5 mg tablet 5 mg PO DAILY PRN tirzepatide 5 mg/0.5 mL subcutaneous pen injector 5 mg (0.5 mL) subcut WK gabapentin 300 mg capsule 900 mg PO Q4H STOP 7 weeks before surgery tirzepatide 5 mg/0.5 mL subcutaneous pen injector 5 mg (0.5 mL) subcut WK ASK your surgeon for instructions celecoxib 100 mg capsule (Celebrex) 100 mg PO BID PRN DO NOT take the morning of surgery lisinopril 40 mg tablet 40 mg PO QAM cholecalciferol (vitamin D3) 1,250 mcg (50,000 unit) capsule 50,000 unit PO WK tadalafil 5 mg tablet 5 mg PO DAILY PRN Take morning of surgery With a small sip of water, OTHERWISE NOTHING TO EAT OR DRINK AFTER MIDNIGHT: gabapentin 300 mg capsule 900 mg PO Q4H Take evening before surgery levothyroxine 300 mcg tablet 300 mcg PO QPM atorvastatin 40 mg tablet 40 mg PO QPM glimepiride 1 mg tablet 1 mg PO QPM gabapentin 300 mg capsule 900 mg PO Q4H Insulin Dependent Diabetic Patients * Test your blood sugar the morning of surgery * If Blood Sugar is GREATER THAN 150, take HALF of your regular dose of: insulin glargine 100 unit/mL (3 mL) subcutaneous pen (Lantus Solostar U-100 Insulin). * If Blood Sugar is LESS THAN 150, DO NOT TAKE ANY: insulin glargine 100 unit/mL (3 mL) subcutaneous pen (Lantus Solostar U-100 Insulin). Other Notes If you have any questions please call us at [phone] or [phone] or [phone] or [phone]
--- NOTE | 2024-01-29 10:52 | Anesthesiology Consultation ---
Date of Service January 29, 2024 Assessment & Plan (1) Encounter for pre-operative examination: - Check BSG AM DOS - Check coags AM DOS (coags hemolyzed on preop labs drawn 01/29/24, WNL on 09/03/23, Will update DOS- surgeon's office aware/agreeable with plan) - Infectious disease screening: Per assessment on 01/29/24: No known recent infectious disease contacts or current infectious disease symptoms. - Tirzepatide instructions: Has not taken in 3+ months and does not plan to start until after upcoming surgery. Patient informed at PAT visit to not take within 7 days prior to surgery- voiced understanding. - [facility] ER visit (01/11/24): "..presents to the emergency department via EMS for evaluation of ongoing dizziness which she reports has been feeling in a fluctuating way since this morning.. He has chronic back pain with fluctuating pain and numbness going down his left leg for which she did receive a steroid injection 2 days ago. He reports he is waiting to have surgery arranged with orthopedic spine. On evaluation the patient is in no acute distress, afebrile with BP 180s/110s and otherwise stable vital signs. He appears clinically dry. He has no focal neurologic deficits. He does have subtle dysarthric speech but patient feels this is due to his dry mouth which is also noted. EKG without overt acute ischemia. CXR negative for acute cardiopulmonary process per my personal preliminary review/interpretation. WBC, hemoglobin and platelets within normal limits. Chemistry without metabolic acidosis. Glucose initially 330s but improving to 250s following IV fluid hydration. Electrolytes unremarkable. LFTs unremarkable. High-sensitivity troponin 4.3, within normal limits. Lipase is normal. UA without convincing evidence of infection. Urine drug screen was negative. Medical alcohol was undetectable. Respiratory viral consuls BioFire was negative. CT of the head and CT of the head and neck were performed and were negative for acute abnormalities. Upon evaluation patient did feel improved following to hydration. Was able to ambulate without difficulty. Given the patient's reassuring evaluation unlikely to have emergent process at this time. Suspect symptoms related to component of dehydration in setting of patient's poorly controlled blood sugars, which has been similar to prior recent emergency department visits. Plan for PCP follow-up and further management of his diabetes." - [facility] ER visit (02/01/24): "This 53-year-old male who has chronic back problems that follows with orthopedic spine here presents ER complaining of severe back pain after he fell. Patient states he fell moving furniture. This happened earlier today. He was able to get up and ambulate. He also injured his right wrist to the distal ulnar side. Patient denies loss of bowel bladder control, saddle seizure, fever, chills, leg weakness, IV drug use. Patient ambulated in without difficulties. No other injuries per patient.. Wrist x-ray with possible sesamoid bone versus chip fracture without dislocation or foreign body per my in dependent interpretation.. Patient was placed in a wrist lacer and neurovascular status was rechecked after placement is intact. He is advised to follow-up orthopedics for his wrist. This appears to be consistent with lumbar strain and wrist pain. Patient was neurovascularly and neurologically intact. Imaging was reviewed patient was ambulating without difficulties. he is advised to follow-up as scheduled with his orthopedic spine doctor and orthopedics or here in the ER sooner for severe pain, inability to walk, worsening signs or symptoms or as needed. By the evaluation outlined above emergent etiologies such as aortic disease, metastatic disease, infection, renal colic, gastrointestinal, cord compression, cauda equina, as well as others were deemed relatively unlikely." > Trisha at surgeon's office made aware. - Critically elevated glucose at 383 called into surgeon's office. Per Trisha Wright with surgeon's office, they forwarded/coordinate elevated glucose finding with PCP. PCP office made aware of elevated glucose and recent ER visit- PCP recommended patient scheduled preop evaluation appointment (date TBD). Awaiting PCP preop evaluation/diabetes management ([facility], appt TBD). Chart Review Chart Review: Patient seen in Pre Admission Testing Teaching & Discussion Pre-Anesthesia Teaching/Discussion Notes: Instructed NPO after midnight before surgery,except medications with 15 cc of water. Medication instructions provided according to the PAT guidelines. History Surgery Operation Date: 02/18/24 11:45 Proposed Procedures p L4-L5 Lateral Lumbar Interbody Fusion with Interbody Cage and Posterior Instrumentation with Spinal Cord Monitoring - Raf Gold MD Height/Weight Height: 5 ft 8 in Weight: 143.5 kg Allergies Allergy/AdvReac Type Severity Reaction Status Date / Time tramadol AdvReac Intermediate urinary Verified 01/17/24 11:24 retention Medications Home Medications Medication Instructions Recorded Confirmed Last Taken pen needle, diabetic 32 gauge x #300 ea 11/15/21 01/11/24 Unknown 08/01" (BD Ultra-Fine Micro Pen Needle) levothyroxine 300 mcg tablet 300 mcg PO QPM #90 tabs 06/15/22 01/17/24 11/23/23 atorvastatin 40 mg tablet 40 mg PO QPM #90 tabs 03/22/23 01/17/24 01/10/24 blood-glucose meter (Embrace Blood 09/02/23 01/11/24 Unknown Glucose System) insulin glargine 100 unit/mL (3 35 unit subcut QAM 11/03/23 01/17/24 11/24/23 mL) subcutaneous pen (Lantus Solostar U-100 Insulin) lisinopril 40 mg tablet 40 mg PO QAM 11/03/23 01/17/24 11/24/23 celecoxib 100 mg capsule (Celebrex) 100 mg PO BID PRN Pain 11/24/23 01/17/24 Unknown cholecalciferol (vitamin D3) 1,250 50,000 unit PO WK 11/24/23 01/17/24 01/06/24 mcg (50,000 unit) capsule glimepiride 1 mg tablet 1 mg PO QPM 11/24/23 01/17/24 11/23/23 tadalafil 5 mg tablet 5 mg PO DAILY PRN Erectile 11/24/23 01/17/24 11/24/23 Dysfunction tirzepatide 5 mg/0.5 mL 5 mg (0.5 mL) subcut WK #2 mL 12/05/23 01/17/24 Unknown subcutaneous pen injector gabapentin 300 mg capsule 900 mg PO Q4H 01/17/24 01/17/24 Unknown Past Medical History Medical History Morbid obesity Mitral regurgitation Echo 01/2022: No MR, no significant valvular disease Dizziness [facility] ER visit 01/11/24- head/neck imaging Low back pain Neurosurgery visit 01/22/24 note scanned into chart Fatty infiltration of liver Per records Arthritis Hypothyroidism Severe obstructive sleep apnea CPAP Hyperlipidemia Hypertension Diabetes mellitus, type 2 Diverticular disease History of DVT (deep vein thrombosis) Per records, pt denies History of COVID-2020 Tachycardia No recent issues per patient Adrenal nodule Entered in 2019, most recent Abdomen/Pelvis CT 11/13/22 notes adrenal glands are "unremarkable" Exercise / Class Metabolic Activity III < 4 Walking/Shop/Light housework Past Family History Family History Father Diabetes Myocardial infarction Stroke syndrome Other No family history of adverse response to anesthesia No pertinent family history Past Surgical History Surgical History History of adenoidectomy History of arthroscopy Left knee arthroscopy: Grade view 1 with elective Glidescope #4, ETT 8.0 "easy, atraumatic" at [facility] (02/13/22) History of tooth extraction History of tonsillectomy and adenoidectomy History of colonoscopy Past Anesthesia History Difficult Airway (Left knee arthroscopy: Grade view 1 with elective Glidescope #4, ETT 8.0 "easy, atraumatic" at [facility] (02/13/22)) and No Family Hx of Anesthesia Complications History of PONV No Hx of PONV and No Hx of Motion Sickness Social History Smoking Status: Never smoker tobacco type: smokeless tobacco Do You Dip or Chew Tobacco: Yes (Daily- Advised none DOS) Hx Alcohol Use: No Hx Substance Use: No substance use type: does not use Review of Systems Patient denies chest pain, shortness of breath, fever, chills, cough, wheezing, palpitations. Physical Exam Vital Signs BP 140/83 P 88 TEMP 98.3 SP02 98%RA RESP 16 Physical Full cervical extension range of motion. Full TMJ range of motion. TMD 3 finger breaths Mallampati Score 3 Dentition: intact, + root canal repair (molar) Lungs: clear throughout to auscultation Cardiac: regular rate and rhythm, no murmurs noted Spine: normal Carotid arteries: negative bruit Extremities: no LE edema Thick neck Lab Results Anesthesia Preop Results Results Anesthesia Widget: WBC 9.80 K/ul (4.8-10.8) 01/11/24 Hgb 14.2 g/dl (14.0-18.0) 01/11/24 Hct 39.8 % (42.0-52.0) L 01/11/24 Plt 200 K/uL (130-400) 01/11/24 Na 136 mmol/L (136-145) 01/29/24 K 4.1 mmol/L (3.5-5.1) 01/29/24 Cl 100 mmol/L (98-107) 01/29/24 CO2 26 mmol/L (21-32) 01/29/24 BUN 14 mg/dl (6-23) 01/29/24 Creat 0.75 mg/dl (0.6-1.4) 01/29/24 Glucose Level 383 mg/dl (70-99(Fasting)) H* 01/29/24 HA1c 9.4 (<5.7) H 01/29/24 Urine Color Yellow 01/11/24 Urine Appearance Clear (Clear) 01/11/24 Urine pH 7.0 (4.5-7.5) 01/11/24 Urine Specific Morrison 1.013 (1.000-1.030) 01/11/24 Urine Protein Negative (Negative) 01/11/24 Urine Glucose (UA) 3+ (Negative) H 01/11/24 Urine Ketones Negative (Negative) 01/11/24 Urine Blood Negative (Negative) 01/11/24 Urine Nitrite Negative (Negative) 01/11/24 Urine Bilirubin Negative (Negative) 01/11/24 Urine Urobilinogen Negative (Negative) 01/11/24 Urine Leukocyte Esterase Negative (Negative) 01/11/24 Coronavirus OC43 (PCR) Not Detected (NotDetected) 01/11/24 Coronavirus HKU1 (PCR) Not Detected (NotDetected) 01/11/24 Coronavirus 229E (PCR) Not Detected (NotDetected) 01/11/24 COVID-19 PCR Not Detected (NotDetected) 01/11/24 Coronavirus NL63 (PCR) Not Detected (NotDetected) 01/11/24 Blood Type A Positive 01/29/24 Antibody Screen NEGATIVE 01/29/24 Testing Electrocardiogram Date: 01/11/24 Findings: + NSR @ (83) Chest X-Ray Date: 01/11/24 FINDINGS: Cardiomediastinal and hilar silhouettes are within normal limits. No pneumothorax, or pleural effusion. The lungs appear clear. Spondylotic spurring of the spine. The bones appear intact. IMPRESSION: No acute process. Echocardiogram Date: 02/05/22 EF 65-70% No significant valvular pathology Borderline cLVH Normal LV wall motion Grade I diastolic dysfunction Other Testing Head CT Date: 01/11/24 IMPRESSION: No acute intracranial finding. Head CTA Date: 01/11/24 IMPRESSION: No acute finding of the arteries of the head. Neck CTA Date: 01/11/24 IMPRESSION: No acute findings of the arteries of the neck.
[2024-04-23] MEDS: LR 60ML/HR IV SCH (06:36)
[2024-04-23] MEDS: LR 15ML/HR IV SCH (06:36)
[2024-04-23] MEDS ORDERED: REMIFENTANIL HCL 1 MG VIAL IV ONE ×3 (06:39→11:33)
[2024-04-23] MEDS ORDERED: PROPOFOL IV EMULSION 10 MG/ML 20 ML VIAL IV ONE ×2 (06:48→08:26)
[2024-04-23] MEDS ORDERED: LIDOCAINE 2% 2 ML VIAL/AMP(20MG/ML) INFIL ONE ×3 (06:48→08:26)
[2024-04-23] MEDS ORDERED: DEXAMETHASONE SOD INJ 4 MG/ML VIAL ONE (06:48)
[2024-04-23] MEDS ORDERED: ONDANSETRON INJ 2 MG/ML 2 ML VIAL ONE ×2 (06:48→08:26)
[2024-04-23] MEDS ORDERED: MIDAZOLAM HCL 1 MG/ML 2ML VIAL ONE (06:49)
[2024-04-23] MEDS ORDERED: fentaNYL citrate PF 100 MCG/2 ML VIAL ONE (06:49)
[2024-04-23 06:54] LABS: Partial Thromboplastin Time 27 Seconds (21-31); Prothrombin Time 11.1 Seconds (9.0-12.0)
[2024-04-23] MEDS ORDERED: ePHEDrine sulfate 50 MG/ML AMP IV PRN (06:56)
[2024-04-23] MEDS ORDERED: ATROPINE SULFATE 0.1 MG/ML 10ML SYR IV PRN (06:56)
[2024-04-23] MEDS ORDERED: ONDANSETRON INJ 2 MG/ML 2 ML VIAL IV PRN ×2 (06:56→14:17)
[2024-04-23] MEDS ORDERED: HYDROmorphone INJ 1 MG/ML SYRINGE IV PRN (06:56)
[2024-04-23] MEDS ORDERED: SUCCINYLCHOLINE CHLORIDE 20 MG/ML 10 ML VIAL IV ONE (07:04)
[2024-04-23] MEDS ORDERED: ROCURONIUM BROMIDE 10 MG/ML 5 ML VIAL IV ONE (07:04)
--- NOTE | 2024-04-23 07:15 | History & Physical Bridge Note ---
Date of Service April 23, 2024 History & Physical Bridge Note I have examined the patient, reviewed the History & Physical and in the interval since the performance of the History & Physical I have noted the following changes of clinical significance: no changes noted
[2024-04-23] MEDS ORDERED: ALBUTEROL HFA 8 GM INHALER INH ONE (07:21)
[2024-04-23] MEDS ORDERED: OXYMETAZOLINE 0.05% 30 ML BTL ONE (07:25)
--- NOTE | 2024-04-23 07:29 | History & Physical Report ---
Date of Service April 23, 2024 History of Present Illness Primary Care Provider: Marcial Peter MD Patient returns for follow-up, he has upcoming surgery on February 17, anticipated lateral cage placement with posterior percutaneous instrumentation. He reports no new changes in his symptoms. He notes that when he walks any distance his symptoms increase, if he stops and leans forward it improves. No changes in examination intact strength for ambulation. 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 Plan: Today at this time I reviewed with the patient the nature of the surgery and how it is performed as I had previously, bringing out a model and showing him instrumentation and cage. I once again discussed with him the fact that the anticipated plan is to perform percutaneous minimally invasive type procedure but there is always a possibility of an open procedure and these options were discussed. Also discussed with the patient to work on weight reduction, he is on Mounjaro and has lost some weight but I emphasized the importance of him for stress transfer to continue to work on this, he is in agreement with this plan Allergies Allergy/AdvReac Type Severity Reaction Status Date / Time tramadol AdvReac Intermediate urinary Verified 04/23/24 06:08 retention Home Medications Medication Instructions Recorded Confirmed Type pen needle, diabetic 32 gauge x #300 ea 11/15/21 03/09/24 Rx 1/4" (BD Ultra-Fine Micro Pen Needle) atorvastatin 40 mg tablet 40 mg PO QPM #90 tabs 03/22/23 04/23/24 Rx blood-glucose meter (Embrace Blood 09/02/23 03/09/24 History Glucose System) celecoxib 100 mg capsule (Celebrex) 100 mg PO BID PRN Pain 11/24/23 04/23/24 History cholecalciferol (vitamin D3) 1,250 50,000 unit PO WK 11/24/23 04/23/24 History mcg (50,000 unit) capsule glimepiride 1 mg tablet 1 mg PO QPM 11/24/23 04/23/24 History tadalafil 5 mg tablet 5 mg PO DAILY PRN Erectile 11/24/23 04/23/24 History Dysfunction aspirin 81 mg tablet,delayed 81 mg PO QAM 02/13/24 04/23/24 History release blood-glucose meter,continuous #1 ea 02/13/24 03/09/24 Rx (FreeStyle Irma 3 [place]) blood-glucose sensor (FreeStyle #2 ea 02/13/24 03/09/24 Rx Irma 3 Sensor device) gabapentin 300 mg capsule 600 mg PO TID 02/13/24 04/23/24 History insulin glargine 100 unit/mL (3 48 unit subcut QAM 02/17/24 04/23/24 History mL) subcutaneous pen (Lantus Solostar U-100 Insulin) blood-glucose meter (Embrace Blood #1 ea 03/06/24 03/09/24 Rx Glucose System) peg 3350-sod [id number] See Rx Instructions PO .COMPLEX #2 03/18/24 04/23/24 Rx 178.7-7.3-0.5-1.12-0.9 gram oral mL soln (Suflave) tirzepatide 7.5 mg/0.5 mL 7.5 mg (0.5 mL) subcut WK #2 mL 04/07/24 04/23/24 Rx subcutaneous pen injector levothyroxine 300 mcg tablet 300 mcg PO QAM #90 tabs 04/15/24 04/23/24 Rx nabumetone 750 mg tablet 750 mg PO BID #60 tabs 04/15/24 04/23/24 Rx pregabalin 75 mg capsule 75 mg PO .COMPLEX #90 caps 04/15/24 04/23/24 Rx lisinopril 40 mg tablet 80 mg (2 x 40 mg) PO QAM #180 tabs 04/20/24 04/23/24 Rx Past Med/Surg History Problem List Lumbar radiculopathy DDD (degenerative disc disease), lumbar Diabetes mellitus, type 2 Spondylolysis of lumbar region Bilateral L4 Spondylolisthesis at L4-L5 level Class 3 obesity Hypogonadotropic hypogonadism in male Erectile dysfunction (Chronic) Hypertension Dyslipidemia (Chronic) Vitamin D deficiency (Chronic) Severe obstructive sleep apnea (Acute) Mitral regurgitation (Acute) Hypothyroidism (Chronic) Diverticulosis (Acute) Medical History Fx lumbar vertebra-closed fx lumbar vertebrae and caused herniation and back pain DDD (degenerative disc disease), lumbar Diabetes Morbid obesity Mitral regurgitation Echo 01/2022: No MR, no significant valvular disease Dizziness [facility] ER visit 01/11/24- head/neck imaging Low back pain Neurosurgery visit 01/22/24 note scanned into chart Fatty infiltration of liver Per records Arthritis Hypothyroidism Severe obstructive sleep apnea CPAP Hyperlipidemia Hypertension Diverticular disease History of DVT (deep vein thrombosis) Per records, pt denies History of COVID-2020 resolved Tachycardia No recent issues per patient Adrenal nodule Entered in 2019, most recent Abdomen/Pelvis CT 11/13/22 notes adrenal glands are "unremarkable" Surgical History History of adenoidectomy History of arthroscopy Left knee arthroscopy: Grade view 1 with elective Glidescope #4, ETT 8.0 "easy, atraumatic" at [facility] (02/13/22) History of tooth extraction History of tonsillectomy and adenoidectomy History of colonoscopy Family History Father Diabetes Myocardial infarction Stroke syndrome Other No family history of adverse response to anesthesia No pertinent family history Social History (Updated 03/09/24 @ 11:05 by Yun Brand, RN) Smoking Status: Never smoker Tobacco Type: Smokeless Tobacco (Dip or Chew) Second Hand Exposure: No; Do You Dip or Chew Tobacco: Yes (1 can - advised); Tobacco Cessation Education Requested by Patient: No Hx Alcohol Use: No Hx Substance Use: No Preferred Language: Sami Communication Ability: Effective Visual Impairment: No Limitations Hearing Ability: Normal Manager Clinical Applications Required: No Beliefs That Will Affect Care: None marital status: Single Current Living Situation: Alone current occupational status: employed 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
[2024-04-23] MEDS: ceFAZolin 3000MG 3,000 MG/72.5 ML BAG IV SCH (08:21)
[2024-04-23] MEDS ORDERED: PHENYLEPHRINE 100MCG/ML 10ML SYR IV ONE (08:27)
[2024-04-23] MEDS ORDERED: ePHEDrine sulfate 50 MG/5 ML SYR ONE (08:39)
[2024-04-23] MEDS ORDERED: PHENYLEPHRINE HCL 10 MG/ML VIAL ONE (08:39)
[2024-04-23] MEDS: VANCOMYCIN HCL 1000MG/20ML VIAL ONE (08:47)
[2024-04-23] MEDS ORDERED: HYDROmorphone INJ 2 MG/ML SYR/VIAL ONE (11:54)
[2024-04-23] MEDS ORDERED: SODIUM CHLORIDE 0.9% PF INJ 10 ML VIAL ONE (12:18)
[2024-04-23] MEDS ORDERED: ceFAZolin 330 MG/ML 1 GM VIAL ONE (12:18)
[2024-04-23] MEDS: GELATIN SPONGE 12-7MM ONE (14:00)
[2024-04-23] MEDS: THROMBIN 5000 UNITS KIT ONE (14:00)
[2024-04-23] MEDS: BUPIVACAINE/EPINEPHRINE 0.5% MPF 1:200,000 30 ML VIAL ONE (14:00)
--- NOTE | 2024-04-23 14:16 | Post Operative Brief Note ---
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
[2024-04-23] MEDS ORDERED: METOCLOPRAMIDE HCL INJ 5 MG/ML 2 ML VIAL IV PRN (14:17)
[2024-04-23] MEDS ORDERED: SOD PHOSPHATE/SOD BIPHOSPHATE ENEMA 132 ML BTL PR PRN (14:17)
[2024-04-23] MEDS ORDERED: DO NOT ADMINISTER PNEUMOCOCCAL VACCINE PRN (14:17)
[2024-04-23] MEDS ORDERED: PROMETHAZINE 12.5 MG/50.5 ML BAG IV PRN (14:17)
[2024-04-23] MEDS ORDERED: ALUMINUM/MAGNESIUM SUSP 30 ML UDC PO PRN (14:17)
[2024-04-23] MEDS ORDERED: ONDANSETRON 4 MG OD TAB PO PRN (14:17)
[2024-04-23] MEDS ORDERED: bisacodyL 10 MG SUPP PR PRN (14:17)
[2024-04-23] MEDS ORDERED: NALOXONE HCL 0.4 MG/1 ML VIAL/CARP IV PRN (14:17)
[2024-04-23] MEDS ORDERED: DO NOT ADMINISTER FLU VACCINE PRN (14:17)
[2024-04-23] MEDS ORDERED: LORazepam 2 MG/1 ML VIAL IV PRN (14:17)
[2024-04-23] MEDS ORDERED: hydrOXYzine HCl 25 MG TAB PO PRN (14:17)
[2024-04-23] MEDS ORDERED: FAMOTIDINE 20 MG TAB PO PRN (14:17)
[2024-04-23] MEDS ORDERED: MAGNESIUM HYDROXIDE SUSP 30 ML UDC PO PRN (14:17)
[2024-04-23] MEDS: fentaNYL citrate PF 100 MCG/2 ML VIAL IV PRN (14:20)
[2024-04-23] MEDS ORDERED: PHARMACY GLYCEMIC MGMT CONSULT PRN (14:30)
--- NOTE | 2024-04-23 14:55 | Fluoroscopy Report ---
FL lumbar spine 2-3V CLINICAL HISTORY: L4-L5 LATERAL AND POSTERIOR FUSION TECHNIQUE: 4 views were obtained with the C-arm in the OR with the above procedure. Total fluoroscopy time was 1 6 seconds. Radiation dose was 1154 mGy. Comparison: Comparison is made to CT lumbar spine 02/01/2024 FINDINGS/IMPRESSION: Intraoperative images were obtained of L4-L5 posterolateral fusion. Please correlate with intraoperative fluoroscopy and operative report. ACT 112: Negative or not required by law. Electronically signed by: Rasta Orona M.D. 04/23/2024 2:53 PM
--- NOTE | 2024-04-23 15:11 | Anesthesiology Progress Note ---
Date of Service April 23, 2024 Anesthesia Post Procedure Vital Signs Vital Signs: Temp Pulse Pulse Resp BP Pulse Ox O2 Del Method 04/23/24 15:00 108 H 16 127/75 97 Room Air 04/23/24 14:50 106 H 12 129/74 99 Oxymask 04/23/24 14:40 106 H 12 125/74 97 Oxymask 04/23/24 14:30 110 H 21 122/67 100 Oxymask 04/23/24 14:20 118 H 23 137/99 100 Oxymask 04/23/24 14:10 36.0 C L 118 H 19 162/92 H 100 Oxymask 04/23/24 06:14 37 C 107 H 20 139/90 95 Room Air O2 Flow Rate 04/23/24 15:00 0 04/23/24 14:50 4 04/23/24 14:40 4 04/23/24 14:30 4 04/23/24 14:20 6 04/23/24 14:10 6 04/23/24 06:14 Pain Intensity Left Lower Back: Pain Intensity: 4 Transfer of Care Handoff Completed per policy Notes Mental Status: alert / awake / arousable Patient Amnestic to Procedure: Yes Nausea / Vomiting: adequately controlled Pain: adequately controlled Airway Patency, RR, SpO2: stable & adequate BP & HR: stable & adequate Hydration State: stable & adequate Anesthetic Complications: no major complications apparent
[2024-04-23] MEDS ORDERED: GLUCOSE 10 TAB/TUBE PO PRN (15:30)
[2024-04-23] MEDS ORDERED: GLUCOSE 40% GEL 15 GM TUBE PO PRN (15:30)
[2024-04-23] MEDS ORDERED: CARBOHYDRATES FOR HYPOGLYCEMIA PO PRN (15:30)
[2024-04-23] MEDS ORDERED: GLUCAGON FOR INJ 1 MG VIAL IM PRN (15:30)
[2024-04-23] MEDS ORDERED: DEXTROSE 50% 50 ML SYRINGE IV PRN (15:30)
--- NOTE | 2024-04-23 15:37 | Pharmacy Report ---
Pharmacy Glycemic Short Note 2 - Date of Service April 23, 2024 - Glycemic Short BSG Results (Last 24 hours): 04/23/24 04/23/24 04/23/24 06:07 13:02 14:30 POC Glucose 153 H 185 H 186 H OUTPATIENT ANTIDIABETIC REGIMEN: * Mounjaro 7.5mg SQ weekly * Lantus 48 units SQ QAM * Glimepiride 1mg PO QAM * A1c 7.5% 04/21/24 ASSESSMENT: * 54 YO Male, s/p spinal surgery, received 4mg Dexamethasone preop, no further s teroids post op. * Patient took 24 units of Lantus (half of his home dose) prior to coming in this morning. * Blood sugars elevated post op, will give additional basal now to cover steroids, then resume home dose tomorrow. * Tight NovoLog coverage, titrate to goal and taper down as steroids wear off. PLAN FOR INPATIENT GLYCEMIC CONTROL: * Hold outpatient diabetes medications * Basal insulin * Lantus 35 units SQ x 1 dose now post op, then 48 units SQ QAM * Bolus insulin * NovoLog per scale ACHS or Q6hrs while NPO * Goal Range: Low 110 mg/dL - High 140 mg/dL * Correction Factor: 15 mg/dL/unit * Nutritional / Prandial insulin per carb ratio of 1 unit per 5 grams CHO consumed
[2024-04-23] MEDS: ACETAMINOPHEN 1,000 MG/100 ML VIAL IV PRN (18:02)
[2024-04-23] MEDS: LACTATED RINGER'S 1,000 ML IV SCH (18:06)
[2024-04-23] MEDS: LANTUS PER UNIT CHARGE SC ONE (18:07)
[2024-04-23] MEDS: INSULIN ASPART PER UNIT CHARGE SC SCH (19:05)
[2024-04-23] MEDS: DOCUSATE SODIUM/SENNA 50/8.6MG TAB PO SCH (20:40)
[2024-04-23] MEDS: GLIMEPIRIDE 2 MG TAB PO SCH (20:41)
[2024-04-23] MEDS: GABAPENTIN 300 MG CAP PO SCH (20:41)
[2024-04-23] MEDS: oxyCODONE/ACETAMINOPHEN 5mg/325mg TAB PO PRN (20:45)
[2024-04-23] MEDS: diphenhydrAMINE Capsule 25 MG CAP PO PRN (21:28)
[2024-04-23] MEDS: LORazepam 0.5 MG TAB PO PRN (21:28)
[2024-04-23] MEDS: HYDROmorphone INJ 0.5 MG/0.5 ML SYR IV PRN (21:28)
[2024-04-23] MEDS: ceFAZolin 1000MG 1,000 MG/7.5 ML SYR IV SCH (22:11)
[2024-04-23] MEDS: NICOTINE 14 MG/24 HR PATCH TD SCH (23:19)
[2024-04-24] MEDS: LEVOTHYROXINE SODIUM 150 MCG TABLET PO SCH (05:21)
[2024-04-24] MEDS: POLYETHYLENE (MIRALAX) 17 GM PACK PO SCH (05:22)
[2024-04-24] MEDS: lisinopril 40 MG TAB PO SCH (07:33)
[2024-04-24] MEDS: LANTUS PER UNIT CHARGE SC SCH (08:08)
[2024-04-24] MEDS ORDERED: NON-FORMULARY MEDICATION (Insulin Glargine [Lantus Solostar U-100 Insulin] 100 unit/mL (3 SQ SCH (09:00)
--- NOTE | 2024-04-24 12:52 | Orthopedic Progress Note ---
Date of Service April 24, 2024 Subjective Patient seen and examined, he notes some incisional pain, but clearly notes that his preoperative low back pain and left leg symptoms are now resolved. He is having some weakness with right hip flexion but no other new symptoms. Exam reveals him to have intact strength in the lower extremities outside of right hip flexion he has activation, it is at least grade 3-4. No specific numbness in the anterior thigh. Impression/plan: Postop day 1 from lateral cage placement with posterior percutaneous instrumentation at L4-5 for spondylolysis and spondylolisthesis, preoperative symptoms resolved. I recommended the patient mobilized with p hysical therapy and Occupational Therapy today, if he is cleared by the hospitalist and these measures he can be discharged home, I will send a pain prescription through the ambulatory chart for oxycodone with acetaminophen. I once again had another discussion with him about not utilizing any tobacco products including patches or vapes, and also to avoid anti-inflammatorie for at least 2 months, will review this when he returns to the office in 2 weeks. Review of Systems All systems reviewed & are unremarkable except as noted in HPI & below. Physical Exam . Results & Data Results & Data Laboratory Results . Diagnostic Findings . PG Care Time/CCT Total # of Minutes Spent Total Time Spent with Patient: Total time spent is greater than 50% in coordination of care (as documented) at patient's floor/unit and/or counseling patient: Coding Level of Care Code 60144 Post Operative Follow-Up
--- NOTE | 2024-04-24 12:54 | Discharge Summary ---
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 Principal Diagnosis Same as "Discharge Diagnosis" noted below under Discharge Instructions. Discharge Exam . Discharge Data Consultations 04/23/24 14:22 Consult Hospitalist Routine Procedures Performed Operation Date: 04/23/24 07:15 Actual Procedures p L4-L5 Lateral Lumbar Interbody Fusion with Interbody Cage and Posterior Instrumentation, Spinal Cord Monitoring(Not Applicable) - Raf Gold MD Ordered Studies 04/23/24 07:15 FL lumbar spine 2-3V Routine Hospital Course (1) Lumbar radiculopathy: L4-5 fusion. (2) Spondylolysis of lumbar region: (3) Spondylolisthesis at L4-L5 level: PG Care Time/CCT Total # of Minutes Spent Total Time Spent with Patient: Total time spent is greater than 50% in coordination of care (as documented) at patient's floor/unit and/or counseling patient: Discharge Plan Discharge Items Patient Disposition: Home - Self-Care Reason For Visit: Spondylolisthesis at L4-L5, Acute Left Sided Low B Discharge Diagnosis: Same as reason for visit. Activity: As commented below Lifting: No more than 10 pounds Bathing: May shower/bathe in 3 days Exercise Comment: Ambulation encouraged. Weightbearing: Full weightbearing Non-emergency contact: Surgeon Call non-emergency contact if: your pain is worsening Follow-up/Referrals: Marcial Peter MD [Primary Care Provider] - Diet: Regular Addtl Attending Provider Instructions: Percocet prescription to be sent into the ambulatory chart, follow-up in 2 weeks. No nicotine/tobacco products or anti-inflammatory medications. Pending Studies at Discharge: No Stand-Alone Forms: [facility], Smoking Cessation Medications and DC Order Prescriptions: Continued (DME) pen needle, diabetic [BD Ultra-Fine Micro Pen Needle] 32 gauge x 1/4" needle See Rx Instructions .Route Qty: 300 1RF Rx Instructions: use 2 per day Suflave 178.7-7.3-0.5 gram recon soln See Rx Instructions PO .COMPLEX Qty: 2 0RF Rx Instructions: orally; TAKE FIRST DOSE AT 6 PM AND SECOND DOSE 6 HOURS PRIOR TO PROCEDURE BIN: [id number] PCN: [id number] GROUP: [id number] pregabalin 75 mg capsule 75 mg PO .COMPLEX Qty: 90 0RF Rx Instructions: 75 mg orally - one tab PO qhs x7 days, then BID x7 days, then TID; levothyroxine 300 mcg tablet 300 mcg PO QAM Qty: 90 1RF lisinopril 40 mg tablet 80 mg PO QAM Qty: 180 3RF atorvastatin 40 mg tablet 40 mg PO QPM Qty: 90 3RF (DME) blood-glucose meter [Embrace Blood Glucose System] Misc See Rx Instructions .Route Rx Instructions: Pt orders supplies from their supply company insulin glargine [Lantus Solostar U-100 Insulin] 100 unit/mL (3 mL) insulin pen 48 unit subcut QAM Rx Instructions: took 24 units this morning aspirin 81 mg tablet,delayed release (DR/EC) 81 mg PO QAM (DME) FreeStyle Irma 3 Sensor Device See Rx Instructions .Route Qty: 2 3RF Rx Instructions: Change every 14 days (DME) FreeStyle Irma 3 [place] Misc See Rx Instructions .Route Qty: 1 0RF Rx Instructions: Scan 3 times daily and as needed (DME) blood-glucose meter [Embrace Blood Glucose System] Misc See Rx Instructions .Route Qty: 1 0RF Rx Instructions: As directed tirzepatide 7.5 mg/0.5 mL pen injector 7.5 mg subcut WK Qty: 2 1RF Rx Instructions: Inject 7.5mg once weekly glimepiride 1 mg tablet 1 mg PO QPM tadalafil 5 mg tablet 5 mg PO DAILY PRN (Reason: Erectile Dysfunction) cholecalciferol (vitamin D3) 1,250 mcg (50,000 unit) capsule 50,000 unit PO WK Rx Instructions: MONDAYS. gabapentin 300 mg capsule 600 mg PO TID Held celecoxib [Celebrex] 100 mg capsule 100 mg PO BID PRN (Reason: Pain) Hold Instructions: Resume on 06/29/24. Discontinued nabumetone 750 mg tablet 750 mg PO BID Qty: 60 2RF Discharge Orders: Discharge Order (Routine); Ordered 04/24/24 Ordered By: Raf Gold Admission Data Admit Date/Time: 04/23/24 14:17 Attending Provider: Raf Gold Admit Provider: Raf Gold Primary Care Provider: Marcial Peter Other Providers: Kim Loredo
--- NOTE | 2024-04-24 17:25 | Operative Report ---
PG Post Operative Report Pre & Post Diagnosis Operation Date: 04/23/24 07:15 Pre-Op Diagnosis: Spondylolysis at L4 with grade 1 spondylolisthesis at L4-5 disc degeneration and foraminal stenosis Post-Op Diagnosis: Spondylolysis at L4 with grade 1 spondylolisthesis at L4-5 disc degeneration and foraminal stenosis I identified the patient and participated in the time-out.: Yes Procedure Operation Date: 04/23/24 07:15 Actual Procedures p L4-L5 Lateral Lumbar Interbody Fusion with Interbody Cage and Posterior Instrumentation, Spinal Cord Monitoring(Not Applicable) - Raf Gold MD Surgeon Raf Gold MD Aerospace Technician none Estimated Blood Loss 100 Findings Consistent with Post-Op Diagnosis Specimens none Description of Procedure 1. Right lateral interbody arthrodesis. (41885) 2. Insertion of intervertebral cage, NuVasive cohere XL 10 x 22 x 55 mm lordotic. (06576) 3. Posterior nonsegmental instrumentation, NuVasive reline. (06452) Patient was taken to the operating room and after adequate esthesia was carefully positioned left lateral decubitus position right side up for a right- sided approach to the L4-5 disc space. He was secured in standard fashion and positioned on the table and after doing so a preprepped was performed, brought in fluoroscopy and did AP and lateral images and made adjustments to the po sitioning. Prep and drape was performed, I began the procedure with a transverse incision over the right iliac crest, and through this I carefully advanced down to the subcutaneous tissues and passed the iliac crest and into the retroperitoneal area in the standard fashion for this type of approach. Once I was able to get into the retroperitoneal cavity, advanced initial dilator from the NuVasive set and advanced this down to the L4-5 interspace. This area was checked with monitoring and fluoroscopy, once I was able to secure position which I thought was appropriate in the posterior one third, and inserted the guidewire followed by the additional dilators. The access apparatus was then inserted, and this was secured to the table, I then incised the annulus after visually inspecting this region and checking it with the probe. The annulus was incised, I then inserted a variety of instruments which include De Guzman elevators, rotating alondra along with other additional devices to remove the disc material thoroughly from the disc space. Advanced this over to the left side where the lateral disc protrusion was present and using pituitaries was able to remove an abundant amount of disc material from the disc space and in the region of the disc herniation. Once completed I then went through trials selecting the cage size indicated for this procedure, NuVasive cohere 10 mm x 22 mm x 55 mm lordotic. Fusion materials were packed both in the disc base and within the cage, I then tapped this in a fluid position on AP and lateral views. Final inspection was performed, vancomycin powder was applied, I then closed the operative site with interrupted 0 sutures and 2-0 Vicryl sutures in the skin. Patient was then repositioned prone on the [place] frame. Once again fluoroscopy was brought in where I marked for the approximate location for the incisions for the insertion of the hardware, prep and drape was performed. I began procedure with incisions bilaterally the paraspinal region, from here I inserted the Jamshidi needles and advanced these under fluoroscopic guidance into the pedicles of L5 and L4 with excellent position, and monitoring indicating greater than 20 at all times. Once these were inserted in the stepwise fashion, I inserted a 5.5 mm tap once again with monitoring, and then insertion of 50 mm 6.5 millimeter screws into the vertebral bodies. The connecting rods were inserted and torqued down, this allowed for an additional millimeter of reduction of the spondylolisthesis which was now properly aligned. Final images were obtained, but then irrigated the operative site with normal saline followed by closure of the fascial layers and additional 2-0 Vicryl sutures for the skin and david for the skin. Sterile dressings were applied, the patient was taken recovery room/in condition. I attest to the content of the Intraoperative Record and any orders documented therein. Any exceptions are noted below.
[2024-04-25] MEDS: MoRPHine SULFATE 2 MG/ML CARP IV STA (08:53)
[2024-04-25] MEDS: LANTUS PER UNIT CHARGE SC SCH (08:54)
--- NOTE | 2024-04-25 09:30 | Hospitalist Progress Note ---
Date of Service April 25, 2024 Assessment & Plan (1) Hypertension: Plan: Blood Pressure is under good control, a little soft this morning Continue home Lisinopril with holding parameters (2) Diabetes mellitus, type 2: Plan: Blood glucose under fair control Continue Insulin and Insulin sliding scale (3) Spondylolisthesis at L4-L5 level: Plan: L4-L5 Spondylolisthesis Now s/p L4-L5 fusion Some scant bloody drainage on surgery site Pain control with Percocet, Morphine Ortho on board Physical therapy Plan Thank you for letting me take part in the mgt of the patient Discharge when ok from ortho Admission and Anticipated Discharge Date Admission Date: April 23, 2024 Subjective patient seen and examined, still has a lot of pain, 03/07 Review of Systems Review of Systems: All systems reviewed are negative, apart from the ones contained in the history. Physical Exam Physical Exam: The patient is awake, alert and oriented 3, well developed and well nourished, normocephalic and atraumatic, lying in bed and in no acute distress. HEENT--PERRL, EOMI, mucous membranes and oropharynx mildly dry Neck--supple. No JVD. No bruits. Thyroid normal, trachea midline, no adenopathy. Heart--normal S1 and S2. No murmurs, rubs or gallops. Lungs--clear bilaterally, no respiratory distress, no accessory muscle use. Abdomen--normal bowel sounds and soft. Extremities--no cyanosis or clubbing. No edema. Dermatologic--normal skin turgor, normal color, no abnormal lymph nodes, no rash. Neurologic--cranial nerves II through XII grossly intact. Rheumatologic--normal range of motion. Psychiatric--normal affect. Results & Data Results & Data Vital Signs (Past 12 Hours) Vital Signs Temp Pulse Resp BP BP Pulse Ox O2 Del Method 04/25/24 07:44 98.8 F 101 H 18 107/63 92 Room Air 04/25/24 07:01 98.6 F 100 H 16 142/84 H 96 Room Air PG Care Time/CCT Total # of Minutes Spent Total Time Spent with Patient: Total time spent is greater than 50% in coordination of care (as documented) at patient's floor/unit and/or counseling patient: Coding Level of Care Code 33317 SUB INP/OBS CARE 2/35MIN Diagnoses Hypertension I10 Diabetes mellitus, type 2 E11.9 Spondylolisthesis at L4-L5 level M43.16 Time Spent (min) 35
[2024-04-25 09:46] LABS: BUN Creatinine Ratio 17.5 (10-20); Calcium 8.6 mg/dl (8.6-10.3); Creatinine Clr Calc Pharmacy 149.3 ml/min; Est GFR (Non-African American) 102.7 ml/min; Potassium 4.2 mmol/L (3.5-5.1)
[2024-04-25] MEDS: KETOROLAC TROMETHAMINE 15 MG/ML VIAL IV ONE ×2 (11:38→17:29)
[2024-04-25] MEDS: ACETAMINOPHEN 500 MG TAB PO PRN (15:04)
[2024-04-26 08:00] VITALS: O2SAT 96
[2024-04-26] MEDS: KETOROLAC TROMETHAMINE 15 MG/ML VIAL IV PRN (09:23)
--- NOTE | 2024-04-26 09:46 | Hospitalist Progress Note ---
Date of Service April 26, 2024 Assessment & Plan (1) Hypertension: Plan: Blood Pressure is under good control, a little soft this morning Continue home Lisinopril with holding parameters (2) Diabetes mellitus, type 2: Plan: Blood glucose under fair control Continue Insulin and Insulin sliding scale (3) Spondylolisthesis at L4-L5 level: Plan: L4-L5 Spondylolisthesis Now s/p L4-L5 fusion Pain control with Percocet, but says it dosent help him and Dilaudid makes him loopy Will discontinue dilaudid and start him on a short course of IV Toradol Ortho on board Physical therapy Plan Thank you for letting me take part in the mgt of the patient Discharge when ok from ortho Admission and Anticipated Discharge Date Admission Date: April 23, 2024 Subjective patient seen and examined, still has a lot of pain, says dilaudid makes him loopy and norco doesnt do anything for him Review of Systems Review of Systems: All systems reviewed are negative, apart from the ones contained in the history. Physical Exam Physical Exam: The patient is awake, alert and oriented 3, well developed and well nourished, normocephalic and atraumatic, lying in bed and in no acute distress. HEENT--PERRL, EOMI, mucous membranes and oropharynx mildly dry Neck--supple. No JVD. No bruits. Thyroid normal, trachea midline, no adenopathy. Heart--normal S1 and S2. No murmurs, rubs or gallops. Lungs--clear bilaterally, no respiratory distress, no accessory muscle use. Abdomen--normal bowel sounds and soft. Extremities--no cyanosis or clubbing. No edema. Dermatologic--normal skin turgor, normal color, no abnormal lymph nodes, no rash. Neurologic--cranial nerves II through XII grossly intact. Rheumatologic--normal range of motion. Psychiatric--normal affect. Results & Data Results & Data Vital Signs (Past 12 Hours) Vital Signs Temp Pulse Resp BP BP Pulse Ox O2 Del Method 04/26/24 09:42 96 H 113/77 04/26/24 07:56 98.1 F 91 H 18 113/79 96 Room Air PG Care Time/CCT Total # of Minutes Spent Total Time Spent with Patient: Total time spent is greater than 50% in coordination of care (as documented) at patient's floor/unit and/or counseling patient: Coding Level of Care Code 06298 SUB INP/OBS CARE 2/35MIN Diagnoses Hypertension I10 Diabetes mellitus, type 2 E11.9 Spondylolisthesis at L4-L5 level M43.16 Time Spent (min) 35
[2024-04-26] MEDS: NICOTINE 14 MG/24 HR PATCH TD SCH (09:58)
--- NOTE | 2024-04-26 11:59 | Orthopedic Progress Note ---
Date of Service April 26, 2024 Subjective Patient seen and examined, he still notes some incisional pain posteriorly with transitions, but overall does note improvement of his preoperative low back pain and left leg symptoms. He has some numbness in the right anterior thigh and lower leg, but his strength for hip flexion has had some limited improvement. Toradol has been helpful in reducing some of the pain, and he notes that he has ambulated around the unit both yesterday and today. He has had flatus but no bowel movement as of yet. Incision sites are unremarkable some limited ecchymosis and serous drainage but no findings to suggest infection. Some grade 3 activation of his right hip flexion present in the extension in the 4+ out of 5 range. Impression: Postop day 3 from lateral cage placement and posterior percutaneous instrumentation for L4-5 spondylolysis and spondylolisthesis. Plan: I had a lengthy discussion with the patient today, it appears he has not cleared doing steps and he has steps at both his mother's health and his home, so for this reason we will have therapy continue to work with him today for ambulation and working on stairs. If he does not pass clearing stairs he cannot go home and this was explained to the patient. Will continue with the Toradol in addition to the oxycodone for pain control to keep the patient mobilized. Also will provide some medications to encourage bowel movement. It was also recommended to the patient that when he is discharged to home, I will provide a prescription for a limited amount of Toradol, he will utilize the oxycodone which has already been sent in. I encouraged the patient to do ambulation as best as possible, and the issue with the chewing tobacco was reviewed again, he seems to be doing well and states he removed his nicotine patch. If the patient does not discharge later today, follow-up tomorrow will be performed. I also reviewed the issue with anti-inflammatories to be avoided after the conclusion of the Toradol. Review of Systems All systems reviewed & are unremarkable except as noted in HPI & below. Physical Exam . Results & Data Results & Data Laboratory Results . Diagnostic Findings . PG Care Time/CCT Total # of Minutes Spent Total Time Spent with Patient: Total time spent is greater than 50% in coordination of care (as documented) at patient's floor/unit and/or counseling patient: Coding Level of Care Code 41671 Post Operative Follow-Up
[2024-04-26] MEDS ORDERED: DO NOT ADMINISTER PNEUMOCOCCAL VACCINE PRN (12:00)
[2024-04-26] MEDS ORDERED: ONDANSETRON INJ 2 MG/ML 2 ML VIAL IV PRN (12:00)
[2024-04-26] MEDS ORDERED: LORazepam 2 MG/1 ML VIAL IV PRN (12:00)
[2024-04-26] MEDS ORDERED: diphenhydrAMINE Capsule 25 MG CAP PO PRN (12:00)
[2024-04-26] MEDS ORDERED: DO NOT ADMINISTER FLU VACCINE PRN (12:00)
[2024-04-26] MEDS ORDERED: SOD PHOSPHATE/SOD BIPHOSPHATE ENEMA 132 ML BTL PR PRN (12:00)
[2024-04-26] MEDS ORDERED: ACETAMINOPHEN 1,000 MG/100 ML VIAL IV PRN (12:00)
[2024-04-26] MEDS ORDERED: MAGNESIUM HYDROXIDE SUSP 30 ML UDC PO PRN (12:00)
[2024-04-26] MEDS ORDERED: METOCLOPRAMIDE HCL INJ 5 MG/ML 2 ML VIAL IV PRN (12:00)
[2024-04-26] MEDS ORDERED: ALUMINUM/MAGNESIUM SUSP 30 ML UDC PO PRN (12:00)
[2024-04-26] MEDS ORDERED: ACETAMINOPHEN 500 MG TAB PO PRN (12:00)
[2024-04-26] MEDS ORDERED: bisacodyL 10 MG SUPP PR PRN (12:00)
[2024-04-26] MEDS ORDERED: FAMOTIDINE 20 MG TAB PO PRN (12:00)
[2024-04-26] MEDS ORDERED: NALOXONE HCL 0.4 MG/1 ML VIAL/CARP IV PRN (12:00)
[2024-04-26] MEDS ORDERED: ONDANSETRON 4 MG OD TAB PO PRN (12:00)
[2024-04-26] MEDS ORDERED: PROMETHAZINE 12.5 MG/50.5 ML BAG IV PRN (12:00)
[2024-04-26] MEDS ORDERED: hydrOXYzine HCl 25 MG TAB PO PRN (12:00)
[2024-04-26] MEDS ORDERED: LORazepam 0.5 MG TAB PO PRN (12:00)
[2024-04-26 13:22] VITALS: BP 114/74; PULSE 97; RESP 16; TEMP 98.6
[2024-04-26] MEDS ORDERED: DOCUSATE SODIUM/SENNA 50/8.6MG TAB PO SCH (21:00)
[2024-04-27] MEDS ORDERED: POLYETHYLENE (MIRALAX) 17 GM PACK PO SCH (06:00)
== END 2024-04-26 15:59 | disposition home or self-care (01) | DRG 460 ==
LOC: PACUINP 05:46 → ASU 05:46 → 3E 17:07